=== PATIENT | male | born 1960 | race Caucasian/White ===

== ENCOUNTER 2020-05-23 07:43 | Outpatient (CLI) | payer OTHER, SELFPAY ==
[2020-05-23 08:04] LABS: Hemoglobin A1C 6.1 % (<5.7)
[2020-05-23 08:49] LABS: Alanine Aminotransferase 49 U/L (16-63); Albumin Level 4.1 g/dL (3.4-5.0); Alkaline Phosphatase 115 U/L (46-116); Anion Gap 11.1 mmol/L (7-16); Aspartate Amino Transferase 31 U/L (15-37); Bilirubin,Total 0.4 mg/dL (0.00-1.00); Blood Urea Nitrogen 13 mg/dL (7-18); Calcium 9.8 mg/dL (8.5-10.1); Carbon Dioxide 31 mmol/L (21-32); Chloride 105 mmol/L (98-108); Cholesterol 153 mg/dL (0-200); Estimated Glomerular Filt Rate 50; Glucose 117 mg/dL (70-99); HDL Direct 32 mg/dL (40-60); LDL Cholesterol Calculated 67 mg/dL (<130); Osmolality Calculated 295 mOsm/kg (285-295); Potassium 5.1 mmol/L (3.5-5.1); Sodium 142 mmol/L (136-145); Total Protein 7.1 g/dL (6.4-8.2); Triglycerides 270 mg/dL (0-150)
== END 2020-05-23 07:44 | disposition home or self-care (01) ==
PROVIDERS: PCP Internal Medicine; Visit Provider Internal Medicine
DX: R73.03 Prediabetes (principal); E78.5 Hyperlipidemia, unspecified
CPT/HCPCS: 36415; 80053; 80061; 83036

== ENCOUNTER 2020-07-30 13:14 | Outpatient (CLI) | payer OTHER, SELFPAY ==
--- NOTE | ~2020-07-30 | XR_ITS ---
EXAMINATION: XR lumbar spine 2-3V DATE: 07/30/2020 13:46 INDICATION: Lumbar radiculopathy TECHNIQUE: Anteroposterior and lateral views of the lumbar spine, and cone-down lateral view of the l umbosacral junction were obtained. COMPARISON: 11/22/2017 FINDINGS: There is no fracture, dislocation, or subluxation. The vertebral body heights are normal. T here is mild chronic loss of intervertebral disc space height at L5-S1. Small degenerative osteophyte s project from the anterior endplates of multiple vertebral bodies. There is moderate to severe facet osteoarthritis of the lower lumbar spine. Calcified atherosclerosis is noted. Punctate calcification s of the left upper quadrant are consistent with healed granulomatous disease of the spleen. Surgical clips in the right upper quadrant are likely from prior cholecystectomy. IMPRESSION: 1. Moderate lumbar spondylosis without acute findings or significant interval change. Reviewed, dictated and finalized at location A. IMPRESSION: 1. Moderate lumbar spondylosis without acute findings or significant interval darshana garsia
[2020-07-30 13:34] LABS: Basophils Absolute Auto 0.02 K/mm3 (0.00-0.10); Basophils Percent Auto 0.1 % (0.0-1.0); Eosinophils Absolute Auto 0.01 K/mm3 (0.02-0.50); Eosinophils Percent Auto 0.1 % (1.0-6.0); Hematocrit 45.7 % (40.0-54.0); Hemoglobin 14.9 g/dL (14.0-18.0); Immature Granulocyte Absolute 0.08 K/mm3 (0.00-0.00); Immature Granulocyte Percent A 0.4 % (0.0-0.0); Lymphocytes Absolute Auto 1.34 K/mm3 (1.10-4.50); Lymphocytes Percent Auto 6.7 % (18.0-42.0); Mean Corpuscular HGB Conc 32.6 g/dL (32.0-36.0); Mean Corpuscular Hemoglobin 29.3 pg (27.0-31.0); Mean Platelet Volume 8.9 fl (8.7-11.0); Monocytes Absolute Auto 0.62 K/mm3 (0.10-0.90); Monocytes Percent Auto 3.1 % (2.0-11.0); Neutrophils Absolute Auto 17.9 K/mm3 (1.7-7.2); Neutrophils Percent Auto 89.6 % (50.0-70.0); Platelet Count Result 316 K/mm3 (150-420); Red Blood Count 5.08 M/mm3 (4.70-6.10); Red Cell Distribution Width 14.5 % (11.6-14.4); White Blood Count 19.9 K/mm3 (4.8-10.8)
[2020-07-30 13:35] LABS: Add Urine Microscopic? NO; Appearance Urine Clear (Clear); Bilirubin Urine Negative (Negative); Blood Urine Negative (Negative); Color Urine Yellow (Yellow); Glucose Urine UA Negative (Negative); Ketones Urine Negative (Negative); Leukocyte Esterase Ur Negative LEU/UL (Negative); Nitrate Urine Negative (Negative); Protein Urine Negative (Negative); Specific Grav Ur >= 1.030 (1.010-1.020); Urobilinogen Urine 0.2 mg/dL (0.2-1.0)
[2020-07-30 13:52] LABS: Alanine Aminotransferase 31 U/L (16-63); Albumin Level 4.7 g/dL (3.4-5.0); Alkaline Phosphatase 112 U/L (46-116); Anion Gap 12 mmol/L (8-16); Aspartate Amino Transferase 16 U/L (15-37); Bilirubin,Total 0.5 mg/dL (0.00-1.00); Blood Urea Nitrogen 22 mg/dL (7-18); Calcium 9.1 mg/dL (8.5-10.1); Carbon Dioxide 22 mmol/L (21-32); Chloride 106 mmol/L (98-108); Estimated Glomerular Filt Rate 52; Glucose 123 mg/dL (70-99); Osmolality Calculated 294 mOsm/kg (285-295); Potassium 4.2 mmol/L (3.5-5.1); Sodium 140 mmol/L (136-145); Total Protein 7.8 g/dL (6.4-8.2)
[2020-07-30 14:01] LABS: CRP < 0.2 mg/dL (0.0-0.9)
[2020-07-31 13:52] LABS: SARS-CoV-2 RNA PCR Negative
== END 2020-07-30 13:15 | disposition home or self-care (01) ==
LOC: CHSLAB 13:15
PROVIDERS: PCP Internal Medicine; Visit Provider Internal Medicine
DX: R50.9 Fever, unspecified (principal); M54.16 Radiculopathy, lumbar region
CPT/HCPCS: 36415; 72100; 80053; 81003; 85025; 86140; 87040; 87635; C9803; U0003

== ENCOUNTER 2020-08-05 07:28 | Outpatient (RCR) | payer OTHER, SELFPAY ==
--- NOTE | 2020-08-04 16:39 | PTOPEVAL ---
Thank you for referring Aramis Agrawal to [facility].? The patient is scheduled to be seen for therapy? __2__x/week for 10 visits. Please review, sign, date and return this plan of care ERROL. I agree with and certify that the following plan of care is medically necessary. Referring Physician Date Admitting Provider: Attending Provider: Jovanny Daigle MD Referring Provider: *PT Outpatient Evaluation Start: 08/04/20 15:59 Freq: Status: Active Protocol: Document 08/04/20 16:00 MALCOLM (Rec: 08/04/20 16:36 MALCOLM [email or web address]) Therapy Assessment Status Assessment Status Assessment Status Evaluation Evaluation Information Problem Diagnosis low back pain Onset 07/09/20 Subjective Information Pt. reports that he developed Query Text:As Reported By Patient/ pain into the left leg about 3 Family -4 weeks ago. He states that he has recent hx of back pain. He underwent nerve procedure in December which did not help and he feels may have worsened his symptoms. He states that he feels the leg is giving out on him on occassion. He reports that he can stand all day, but pain will increase. 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 He states that his goal is to get rid of his pain in order to walk better. Diagnostic Tests X-Rays For This Problem Yes Pain Assessment Pain Scale Pain Scale Used Numeric (1 - 10) Self Report Pain Assessment Left Thigh(s) Reported Pain Level 6 Pain Description Aching,Dull Lowest Pain Intensity 6 Greatest Pain Intensity 10 Pain Score Pain Score 6: Self Report Interventions Used Interventions Used By Clinicians Electrical Stimulation, Exercise,Heat Cervical and Lumbar ROM Lumbar ROM Lumbar Flexion Active Floor Query Text:Hands to: Lumbar Extension (0-40) 0 Query Text:Active in Degrees Lumbar Lateral Flexion Right (0-40) 40 Query Text:Active in Degrees Lumbar Lateral Flexion Left (0-40) 10 Query Text:Active in Degrees Lower Extremity Muscle Strength Testing General Lower Extremity Strength Gross Lower Extremity Strength right hip flexion 02/18
== END 2020-08-21 14:44 | disposition home or self-care (01) ==
LOC: CHSPT 07:28
PROVIDERS: PCP Internal Medicine; Visit Provider Internal Medicine
DX: M54.9 Dorsalgia, unspecified (principal)
CPT/HCPCS: 97012; 97014; 97110; 97140; 97161; G0283

== ENCOUNTER 2020-08-08 14:46 | Outpatient (CLI) | payer OTHER, SELFPAY ==
--- NOTE | ~2020-08-08 | US_ITS ---
EXAMINATION:US venous doppler LE LT INDICATION:Left leg pain TECHNIQUE: Multiple grayscale, color flow and Doppler images of the left lower extremity deep venous systems were obtained and reviewed. COMPARISON:No prior studies for comparison. FINDINGS: The common femoral, superficial femoral and popliteal veins demonstrate normal respiratory variation, augmentation and compressibility. Color flow is also seen within the posterior tibial, pe roneal, greater saphenous and profunda veins. IMPRESSION: 1: No lower extremity deep venous thrombosis. Reviewed, dictated and finalized at location B.
== END 2020-08-08 14:47 | disposition home or self-care (01) ==
LOC: CHSLAB 14:48
PROVIDERS: PCP Internal Medicine; Visit Provider Internal Medicine
DX: M79.605 Pain in left leg (principal)
CPT/HCPCS: 93971

== ENCOUNTER 2020-08-18 08:33 | Outpatient (RCR) | payer OTHER, SELFPAY ==
[2020-06-05 10:00] LABS: INR 1.3; Prothrombin Time 13.4 Seconds (9.64-11.0)
[2020-06-09 07:53] LABS: INR 2.3
[2020-06-12 08:11] LABS: INR 2.6; Prothrombin Time 26.3 Seconds (9.64-11.0)
[2020-06-19 08:17] LABS: INR 2.6; Prothrombin Time 26.1 Seconds (9.64-11.0)
[2020-06-26 08:50] LABS: INR 3.5; Prothrombin Time 34.3 Seconds (9.64-11.0)
[2020-07-03 08:45] LABS: INR 2.1; Prothrombin Time 20.7 Seconds (9.64-11.0)
[2020-07-10 09:28] LABS: INR 2.3; Prothrombin Time 22.7 Seconds (9.64-11.0)
[2020-07-24 08:05] LABS: INR 3.5; Prothrombin Time 34.3 Seconds (9.64-11.0)
[2020-08-01 08:14] LABS: Prothrombin Time 48.8 Seconds (9.64-11.0)
[2020-08-05 07:58] LABS: INR 1.2; Prothrombin Time 12.7 Seconds (9.64-11.0)
[2020-08-12 07:48] LABS: INR 2.2; Prothrombin Time 22.5 Seconds (9.64-11.0)
[2020-08-18 08:54] LABS: INR 1.9; Prothrombin Time 19.4 Seconds (9.64-11.0)
== END 2020-09-03 23:59 | disposition home or self-care (01) ==
LOC: CHSLAB 08:33
PROVIDERS: PCP Internal Medicine
DX: Z95.2 Presence of prosthetic heart valve (principal)
CPT/HCPCS: 36415; 85610

== ENCOUNTER 2020-09-08 16:21 | Outpatient (CLI) | payer OTHER, SELFPAY ==
--- NOTE | ~2020-09-08 | XR_ITS ---
EXAMINATION: XR knee LT 3V DATE: 09/08/2020 17:23 INDICATION: Left knee pain TECHNIQUE: Anteroposterior, sunrise and and crosstable lateral views of the left knee were obtained COMPARISON: None. FINDINGS: Alignment is normal. No fracture. Joint spaces appear normal although joint space narrowing can be u nderestimated on nonweightbearing imaging. Moderate sized left knee joint effusion at the suprapatell ar pouch without layering lipohemarthrosis. Prominent enthesophyte at the patellar insertion of the d istal quadriceps tendon. Soft tissues are unremarkable. IMPRESSION: 1. Nonspecific moderate-sized left knee joint effusion. No acute osseous abnormality. Reviewed, dictated and finalized at location H. LIANCE SPEC IMPRESSION: 1. Nonspecific moderate-sized left knee joint effusion. No acute osseous abnorm ality.
== END 2020-09-08 16:22 | disposition home or self-care (01) ==
LOC: CHSLAB 16:22
PROVIDERS: PCP Internal Medicine; Visit Provider Internal Medicine
DX: M25.562 Pain in left knee (principal)
CPT/HCPCS: 73562

== ENCOUNTER 2020-09-17 08:11 | Outpatient (CLI) | payer OTHER, SELFPAY | END 2020-09-17 08:12 | disposition home or self-care (01) | LOC: CHSIMG 08:12 | PROVIDERS: PCP Internal Medicine; Visit Provider Internal Medicine | DX: Z53.8 Procedure and treatment not carried out for other reasons (principal) | CPT/HCPCS: 99199 ==

== ENCOUNTER 2020-09-24 07:04 | Outpatient (CLI) | payer OTHER, SELFPAY ==
--- NOTE | ~2020-09-24 | MR_ITS ---
EXAMINATION: MR lumbar spine wo con DATE: 09/24/2020 07:51 INDICATION: Lumbosacral radiculopathy. TECHNIQUE: Magnetic resonance imaging (MRI) of the lumbar spine was performed without intravenous con trast. Sequences included sagittal T2-weighted FSE, sagittal T2-weighted FS FSE, sagittal T1-weighted FSE, and axial T2-weighted FSE. COMPARISON: Lumbar spine MRI 06/02/2019 FINDINGS: Bone alignment is normal. There are Schmorl's nodes at all levels. There is mild chronic an terior wedging of L1 vertebral body. There is mildly decreased disc height at T12-L1. The distal spin al cord signal intensity is normal. The conus medullaris is at L1. The following disc levels are spec ifically discussed: T12-L1: There is a central extrusion. There is mild bilateral facet joint osteoarthritis. There is no neural foraminal stenosis. There is mild central canal stenosis. L1-L2: The disc is bulging and has an annular fissure. There is mild bilateral facet joint osteoarthr itis. There is moderate right and mild left neural foraminal stenosis. There is mild central canal st enosis. L2-L3: The disc is bulging and has an annular fissure. There is moderate bilateral facet joint osteoa rthritis. There is mild bilateral neural foraminal stenosis. There is mild central canal stenosis. L3-L4: The disc is bulging with superimposed left subarticular zone extrusion with 14 mm inferior ext ension to the infrapedicular level and mass effect on the left L4 nerve root. There is moderate bilat eral facet joint osteoarthritis. There is moderate bilateral neural foraminal stenosis. There is markos re central canal stenosis. L4-L5: The disc is bulging and has an annular fissure. There is moderate bilateral facet joint osteoa rthritis. There is moderate bilateral neural foraminal stenosis. There is mild central canal stenosis . L5-S1: The disc is bulging and has an annular fissure. There is moderate bilateral facet joint osteoa rthritis. There is moderate bilateral neural foraminal stenosis. There is mild central canal stenosis . IMPRESSION: 1. Lumbar spondylosis with worsened extrusion at L3-L4 with mass effect on left L4 nerve root and per sistent severe central canal stenosis at L3-L4. Reviewed, dictated and finalized at location B. ESS LABORATORY SPECIALIST IMPRESSION: 1. Lumbar spondylosis with worsened extrusion at L3-L4 with mass effect on left L4 nerve root and persistent severe central canal stenosis at L3-L4.
== END 2020-09-24 07:05 ==
LOC: CHSIMG 07:05
PROVIDERS: PCP Internal Medicine; Visit Provider Internal Medicine
DX: M54.16 Radiculopathy, lumbar region (principal); R29.2 Abnormal reflex
CPT/HCPCS: 72148

== ENCOUNTER 2020-11-20 07:01 | Outpatient (RCR) | payer OTHER, SELFPAY ==
[2020-09-04 08:19] LABS: INR 2.5; Prothrombin Time 25.2 Seconds (9.64-11.0)
[2020-09-29 08:22] LABS: INR 1.3; Prothrombin Time 14.4 Seconds (9.50-12.10)
[2020-10-06 08:10] LABS: INR 1.4; Prothrombin Time 15.1 Seconds (9.50-12.10)
[2020-10-15 08:48] LABS: INR 1.2; Prothrombin Time 13.1 Seconds (9.50-12.10)
[2020-10-23 09:13] LABS: INR 1.6; Prothrombin Time 17.2 Seconds (9.50-12.10)
[2020-11-05 07:53] LABS: INR 1.3; Prothrombin Time 13.7 Seconds (9.50-12.10)
[2020-11-20 07:24] LABS: Prothrombin Time 20.2 Seconds (9.50-12.10)
== END 2020-12-03 23:59 | disposition home or self-care (01) ==
LOC: CHSLAB 07:01
PROVIDERS: PCP Internal Medicine
DX: Z95.2 Presence of prosthetic heart valve (principal)
CPT/HCPCS: 36415; 85610

== ENCOUNTER 2021-02-20 07:21 | Outpatient (RCR) | payer OTHER, SELFPAY ==
[2020-12-05 07:27] LABS: INR 2.1; Prothrombin Time 21.5 Seconds (9.50-12.10)
[2020-12-22 07:37] LABS: INR 2.5; Prothrombin Time 25.1 Seconds (9.50-12.10)
[2021-01-08 07:58] LABS: INR 2.5; Prothrombin Time 25.8 Seconds (9.50-12.10)
[2021-01-23 07:34] LABS: INR 2.1; Prothrombin Time 21.7 Seconds (9.50-12.10)
== END 2021-03-05 23:59 | disposition home or self-care (01) ==
LOC: CHSLAB 07:21
PROVIDERS: PCP Internal Medicine
DX: Z95.2 Presence of prosthetic heart valve (principal)
CPT/HCPCS: 36415; 85610

== ENCOUNTER 2021-06-09 07:17 | Outpatient (RCR) | payer OTHER, SELFPAY ==
[2021-05-06 07:39] LABS: INR 2.8; Prothrombin Time 28.3 Seconds (9.50-12.10)
[2021-06-09 07:42] LABS: INR 1.8; Prothrombin Time 18.6 Seconds (9.50-12.10)
== END 2021-06-24 23:59 | disposition home or self-care (01) ==
LOC: CHSLAB 07:17
PROVIDERS: PCP Internal Medicine
DX: Z95.2 Presence of prosthetic heart valve (principal); Z79.01 Long term (current) use of anticoagulants
CPT/HCPCS: 36415; 85610

== ENCOUNTER 2021-10-06 08:12 | Outpatient (RCR) | payer OTHER, SELFPAY ==
[2021-07-16 07:57] LABS: INR 2.4; Prothrombin Time 24.2 Seconds (9.50-12.10)
[2021-08-21 07:43] LABS: INR 1.9; Prothrombin Time 19.3 Seconds (9.50-12.10)
[2021-10-06 08:39] LABS: INR 2.3; Prothrombin Time 23.9 Seconds (9.50-12.10)
== END 2021-10-14 23:59 | disposition home or self-care (01) ==
LOC: CHSLAB 08:12
PROVIDERS: PCP Internal Medicine
DX: Z79.01 Long term (current) use of anticoagulants (principal)
CPT/HCPCS: 36415; 85610

== ENCOUNTER 2021-12-17 07:29 | Outpatient (CLI) | payer OTHER, BC, SELFPAY ==
[2021-12-17 08:39] LABS: Basophils Absolute Auto 0.13 K/mm3 (0.00-0.10); Basophils Percent Auto 1.7 % (0.0-1.0); Eosinophils Percent Auto 2.7 % (1.0-6.0); Hemoglobin 17.1 g/dL (14.0-18.0); Immature Granulocyte Absolute 0.06 K/mm3 (0.00-0.00); Immature Granulocyte Percent A 0.8 % (0.0-0.0); Lymphocytes Percent Auto 21.3 % (18.0-42.0); Mean Corpuscular HGB Conc 34.2 g/dL (32.0-36.0); Mean Corpuscular Hemoglobin 30.6 pg (27.0-31.0); Mean Corpuscular Volume 89.6 fL (78.0-102.0); Mean Platelet Volume 9.7 fl (8.7-11.0); Monocytes Absolute Auto 0.57 K/mm3 (0.10-0.90); Monocytes Percent Auto 7.6 % (2.0-11.0); Neutrophils Percent Auto 65.9 % (50.0-70.0); Platelet Count Result 214 K/mm3 (150-420); Red Blood Count 5.58 M/mm3 (4.70-6.10); Red Cell Distribution Width 13.1 % (11.6-14.4); White Blood Count 7.5 K/mm3 (4.8-10.8)
[2021-12-17 08:52] LABS: INR 1.6; Prothrombin Time 16.2 Seconds (9.50-12.10)
[2021-12-17 11:12] LABS: Alanine Aminotransferase 52 U/L (16-63); Albumin Level 4.3 g/dL (3.4-5.0); Alkaline Phosphatase 92 U/L (46-116); Anion Gap 10 mmol/L (8-16); Aspartate Amino Transferase 26 U/L (15-37); Bilirubin,Total 0.8 mg/dL (0.00-1.00); Blood Urea Nitrogen 20 mg/dL (7-18); Calcium 9.3 mg/dL (8.5-10.1); Carbon Dioxide 27 mmol/L (21-32); Chloride 106 mmol/L (98-108); Cholesterol 158 mg/dL (0-200); Estimated Glomerular Filt Rate 56; Glucose 132 mg/dL (70-99); HDL Direct 29 mg/dL (40-60); LDL Cholesterol Calculated 69 mg/dL (<130); Osmolality Calculated 300 mOsm/kg (285-295); Potassium 4.5 mmol/L (3.5-5.1); Sodium 143 mmol/L (136-145); Total Protein 6.8 g/dL (6.4-8.2); Triglycerides 302 mg/dL (0-150)
== END 2021-12-17 07:30 | disposition home or self-care (01) ==
LOC: CHSLAB 07:33
PROVIDERS: PCP Internal Medicine
DX: I25.10 Atherosclerotic heart disease of native coronary artery without angina pectoris (principal); Z95.1 Presence of aortocoronary bypass graft; I10 Essential (primary) hypertension; Z95.2 Presence of prosthetic heart valve; Z79.01 Long term (current) use of anticoagulants
CPT/HCPCS: 36415; 80053; 80061; 85025; 85610

== ENCOUNTER 2022-01-28 07:37 | Outpatient (RCR) | payer BC, OTHER, SELFPAY ==
[2021-11-13 07:50] LABS: INR 1.7; Prothrombin Time 17.2 Seconds (9.50-12.10)
[2022-01-28 08:03] LABS: INR 1.8; Prothrombin Time 18.9 Seconds (9.50-12.10)
== END 2022-02-11 23:59 | disposition home or self-care (01) ==
LOC: CHSLAB 07:37
PROVIDERS: PCP Internal Medicine
DX: Z79.01 Long term (current) use of anticoagulants (principal)
CPT/HCPCS: 36415; 85610

== ENCOUNTER 2022-04-13 07:36 | Outpatient (CLI) | payer BC, SELFPAY ==
--- NOTE | ~2022-04-13 | MR_ITS ---
EXAMINATION: MR lumbar spine wo con DATE: 04/13/2022 08:22 INDICATION: Low back pain radiating down into B/L legs x3 mo . TECHNIQUE: Magnetic resonance imaging (MRI) of the lumbar spine was performed without intravenous con trast. Sequences included sagittal T2-weighted FSE, sagittal T2-weighted FS FSE, sagittal T1-weighted FSE, and axial T2-weighted FSE. COMPARISON: None FINDINGS: The last fully formed and hydrated disc is designated L5-S1. The marrow signal is benign an d homogenous. Conus terminates at L1. Multilevel disc dehydration. The following disc levels are spec ifically discussed: T12-L1: Mild diffuse bulge with a central 2 mm protrusion. There is mild facet joint osteoarthritis. There is no neural foraminal stenosis. There is mild central canal stenosis. L1-L2: Moderate diffuse bulge. Tiny rent in the posterior disc. There is severe facet joint osteoarth ritis. There is moderate right and mild left neural foraminal stenosis. There is moderate central can al stenosis. L2-L3: Severe diffuse bulge. Tiny focal rent in the posterior disc. There is severe facet joint osteo arthritis. There is moderate right and mild left neural foraminal stenosis. There is moderate central canal stenosis. L3-L4: Severe diffuse bulge. 3 mm central protrusion extending along the posterior aspect of the L4 v ertebral body. There is moderate facet joint osteoarthritis. There is moderate bilateral neural madhavi inal stenosis. There is severe central canal stenosis. L4-L5: Severe diffuse bulge. There is severe facet joint osteoarthritis. There is moderate bilateral neural foraminal stenosis. There is severe central canal stenosis. L5-S1: Moderate diffuse bulge. There is moderate bilateral facet joint osteoarthritis. There is sever e bilateral neural foraminal stenosis. There is no central canal stenosis. IMPRESSION: 1. Severe central canal narrowing at L3-4 and L4-5. 2. Severe bilateral neural foraminal stenosis at L5-S1. Additional levels of moderate neural foramina l narrowing at multiple levels, described above. 3. Multilevel severe degenerative disc disease and facet arthropathy. Reviewed, dictated and finalized at location K. IMPRESSION: 1. Severe central canal narrowing at L3-4 and L4-5. 2. Severe bilateral neural foraminal stenosis at L5-S1. Additional levels of mo derate neural foraminal narrowing at multiple levels, described above. 3. Multilevel severe degenerative disc disease and facet arthropathy.
== END 2022-04-13 07:37 | disposition home or self-care (01) ==
LOC: CHSIMG 07:37
PROVIDERS: PCP Internal Medicine; Visit Provider Neurological Surgery
DX: M54.16 Radiculopathy, lumbar region (principal)
CPT/HCPCS: 72148

== ENCOUNTER 2022-05-11 07:03 | Outpatient (CLI) | payer BC, SELFPAY ==
[2022-05-11 07:24] LABS: Basophils Absolute Auto 0.09 K/mm3 (0.00-0.10); Basophils Percent Auto 1.4 % (0.0-1.0); Eosinophils Absolute Auto 0.25 K/mm3 (0.02-0.50); Eosinophils Percent Auto 3.9 % (1.0-6.0); Hematocrit 46.7 % (40.0-54.0); Immature Granulocyte Absolute 0.03 K/mm3 (0.00-0.00); Immature Granulocyte Percent A 0.5 % (0.0-0.0); Lymphocytes Absolute Auto 1.27 K/mm3 (1.10-4.50); Lymphocytes Percent Auto 19.8 % (18.0-42.0); Mean Corpuscular HGB Conc 34.3 g/dL (32.0-36.0); Mean Corpuscular Hemoglobin 31.1 pg (27.0-31.0); Mean Corpuscular Volume 90.9 fL (78.0-102.0); Monocytes Absolute Auto 0.45 K/mm3 (0.10-0.90); Neutrophils Absolute Auto 4.3 K/mm3 (1.7-7.2); Neutrophils Percent Auto 67.4 % (50.0-70.0); Platelet Count Result 204 K/mm3 (150-420); Red Blood Count 5.14 M/mm3 (4.70-6.10); White Blood Count 6.4 K/mm3 (4.8-10.8)
--- NOTE | 2022-05-11 07:30 | ECG_ITS ---
Rate 54 AL 201 QRSd 93 QT 409 QTc 389 --[place]-- P 62 QRS -2 T 54 SINUS BRADYCARDIA BORDERLINE AV CONDUCTION DELAY BASELINE ARTIFACT- I, III, AVL, AVF BORDERLINE ECG Electronically Signed On 05-11-2022 8:28:21 CDT by Donovan OSEI
[2022-05-11 07:53] LABS: Alanine Aminotransferase 41 U/L (16-63); Albumin Level 4.2 g/dL (3.4-5.0); Alkaline Phosphatase 107 U/L (46-116); Anion Gap 7 mmol/L (8-16); Aspartate Amino Transferase 29 U/L (15-37); Bilirubin,Total 0.5 mg/dL (0.00-1.00); Blood Urea Nitrogen 16 mg/dL (7-18); Calcium 8.9 mg/dL (8.5-10.1); Carbon Dioxide 27 mmol/L (21-32); Chloride 104 mmol/L (98-108); Estimated Glomerular Filt Rate 57; Glucose 112 mg/dL (70-99); Osmolality Calculated 288 mOsm/kg (285-295); Potassium 4.2 mmol/L (3.5-5.1); Sodium 138 mmol/L (136-145); Total Protein 6.7 g/dL (6.4-8.2)
== END 2022-05-11 07:04 | disposition home or self-care (01) ==
PROVIDERS: PCP Internal Medicine; Visit Provider Internal Medicine
DX: Z01.818 Encounter for other preprocedural examination (principal); I10 Essential (primary) hypertension
CPT/HCPCS: 36415; 80053; 85025; 93005

== ENCOUNTER 2022-05-18 08:33 | Outpatient (RCR) | payer BC, SELFPAY ==
[2022-03-02 08:05] LABS: Prothrombin Time 58.8 Seconds (9.50-12.10)
[2022-03-04 07:56] LABS: INR 4.5; Prothrombin Time 45.1 Seconds (9.50-12.10)
[2022-03-09 07:26] LABS: INR 1.3; Prothrombin Time 13.5 Seconds (9.50-12.10)
[2022-03-12 07:28] LABS: INR 2.3; Prothrombin Time 23.8 Seconds (9.50-12.10)
[2022-03-19 07:53] LABS: INR 3.9; Prothrombin Time 38.6 Seconds (9.50-12.10)
[2022-04-05 08:01] LABS: INR 3.5; Prothrombin Time 34.3 Seconds (9.50-12.10)
[2022-04-30 07:24] LABS: INR 2.7; Prothrombin Time 27.3 Seconds (9.50-12.10)
== END 2022-05-31 23:59 | disposition home or self-care (01) ==
LOC: CHSLAB 08:33
PROVIDERS: PCP Internal Medicine
DX: Z79.01 Long term (current) use of anticoagulants (principal)
CPT/HCPCS: 36415; 85610

== ENCOUNTER 2022-08-05 07:12 | Outpatient (RCR) | payer BC, SELFPAY ==
[2022-06-02 07:24] LABS: INR 1.5; Prothrombin Time 15.9 Seconds (9.50-12.10)
[2022-06-29 07:58] LABS: INR 2.2; Prothrombin Time 22.8 Seconds (9.50-12.10)
[2022-08-05 07:38] LABS: INR 2.2
== END 2022-08-31 23:59 | disposition home or self-care (01) ==
LOC: CHSLAB 07:12
PROVIDERS: PCP Internal Medicine
DX: Z79.01 Long term (current) use of anticoagulants (principal)
CPT/HCPCS: 36415; 85610

== ENCOUNTER 2022-11-02 07:10 | Outpatient (RCR) | payer BC, SELFPAY ==
[2022-09-14 07:35] LABS: INR 1.6; Prothrombin Time 16.7 Seconds (9.50-12.10)
[2022-09-30 07:22] LABS: INR 1.6; Prothrombin Time 16.9 Seconds (9.50-12.10)
[2022-11-02 07:50] LABS: INR 2.2; Prothrombin Time 22.9 Seconds (9.50-12.10)
== END 2022-12-13 23:59 | disposition home or self-care (01) ==
LOC: CHSLAB 07:10
PROVIDERS: PCP Internal Medicine
DX: Z51.81 Encounter for therapeutic drug level monitoring (principal); Z79.01 Long term (current) use of anticoagulants
CPT/HCPCS: 36415; 85610

== ENCOUNTER 2022-11-17 16:35 | Outpatient (CLI) | payer BC, SELFPAY ==
--- NOTE | ~2022-11-17 | XR_ITS ---
EXAMINATION:XR_CERV2-3V_CR DATE: 11/17/2022 17:08 INDICATION: Neck pain TECHNIQUE: AP, lateral, and odontoid views of the cervical spine are provided. COMPARISON: None FINDINGS: Alignment is normal. The odontoid process is intact. No fracture is identified. The vertebr al body heights are normal. There is mild loss of intervertebral disc space height at C3-4, C4-5, and C5-6. There is multilevel mild facet and uncovertebral joint osteoarthritis. Prevertebral soft tissu es are normal. IMPRESSION: 1. Mild cervical spondylosis without acute findings. Reviewed, dictated and finalized at location L. ALL CARRIER
== END 2022-11-17 16:36 | disposition home or self-care (01) ==
LOC: CHSIMG 16:37
PROVIDERS: PCP Internal Medicine; Visit Provider Internal Medicine
DX: M54.2 Cervicalgia (principal); M43.02 Spondylolysis, cervical region
CPT/HCPCS: 72040

== ENCOUNTER 2022-12-02 07:02 | Outpatient (CLI) | payer BC, SELFPAY ==
[2022-12-02 07:52] LABS: Basophils Absolute Auto 0.13 K/mm3 (0.00-0.10); Basophils Percent Auto 1.3 % (0.0-1.0); Hematocrit 50.9 % (40.0-54.0); Hemoglobin 16.7 g/dL (14.0-18.0); Immature Granulocyte Absolute 0.08 K/mm3 (0.00-0.00); Immature Granulocyte Percent A 0.8 % (0.0-0.0); Lymphocytes Absolute Auto 1.31 K/mm3 (1.10-4.50); Lymphocytes Percent Auto 13.1 % (18.0-42.0); Mean Corpuscular HGB Conc 32.8 g/dL (32.0-36.0); Mean Corpuscular Hemoglobin 28.9 pg (27.0-31.0); Mean Corpuscular Volume 88.2 fL (78.0-102.0); Mean Platelet Volume 8.9 fl (8.7-11.0); Monocytes Absolute Auto 0.67 K/mm3 (0.10-0.90); Monocytes Percent Auto 6.7 % (2.0-11.0); Neutrophils Absolute Auto 7.6 K/mm3 (1.7-7.2); Neutrophils Percent Auto 76.1 % (50.0-70.0); Platelet Count Result 232 K/mm3 (150-420); Red Blood Count 5.77 M/mm3 (4.70-6.10); Red Cell Distribution Width 13.6 % (11.6-14.4)
[2022-12-02 08:04] LABS: INR 2.6; Prothrombin Time 26.5 Seconds (9.50-12.10)
[2022-12-02 08:05] LABS: Add Urine Microscopic? NO; Appearance Urine Clear (Clear); Bilirubin Urine Negative (Negative); Blood Urine Negative (Negative); Color Urine Yellow (Yellow); Glucose Urine UA Negative (Negative); Ketones Urine Negative (Negative); Leukocyte Esterase Ur Negative (Negative); Nitrate Urine Negative (Negative); Protein Urine Negative (Negative); Specific Grav Ur >= 1.030 (1.010-1.020); pH Urine 5.5 (5.0-8.0)
[2022-12-02 08:28] LABS: Alanine Aminotransferase 73 U/L (16-63); Albumin Level 3.7 g/dL (3.4-5.0); Alkaline Phosphatase 139 U/L (46-116); Anion Gap 7 mmol/L (8-16); Aspartate Amino Transferase 48 U/L (15-37); Bilirubin,Total 0.4 mg/dL (0.00-1.00); Blood Urea Nitrogen 16 mg/dL (7-18); Calcium 8.6 mg/dL (8.5-10.1); Carbon Dioxide 26 mmol/L (21-32); Chloride 103 mmol/L (98-108); Cholesterol 257 mg/dL (0-200); Estimated Glomerular Filt Rate 55; Glucose 145 mg/dL (70-99); HDL Direct 29 mg/dL (40-60); LDL Cholesterol Calculated 164 mg/dL (<130); Osmolality Calculated 286 mOsm/kg (285-295); Potassium 4.2 mmol/L (3.5-5.1); Prostate Specific Antigen 0.9 ng/mL (< OR = 4.0); Sodium 136 mmol/L (136-145); Thyroid Stimulating Hormone 1.81 uIU/mL (0.36-3.74); Total Protein 6.5 g/dL (6.4-8.2); Triglycerides 320 mg/dL (0-150)
[2022-12-07 03:03] LABS: Hepatitis A Antibody IgM Nonreactive; Hepatitis B Core Antibody Nonreactive (Nonreactive); Hepatitis B Surface Antigen Nonreactive (Nonreactive); Hepatitis C Signal to Cutoff 0.01 ratio (<1.00); Hepatitis C Virus Antibody Nonreactive (Nonreactive)
== END 2022-12-02 07:03 | disposition home or self-care (01) ==
LOC: CHSLAB 07:05
PROVIDERS: PCP Internal Medicine
DX: I10 Essential (primary) hypertension (principal); E78.5 Hyperlipidemia, unspecified; Z79.01 Long term (current) use of anticoagulants
CPT/HCPCS: 36415; 80053; 80061; 80074; 81003; 84153; 84443; 85025; 85610; G0103

== ENCOUNTER 2023-02-25 06:58 | Outpatient (CLI) | payer BC, SELFPAY ==
[2023-02-25 07:31] LABS: INR 1.4; Prothrombin Time 14.7 Seconds (9.50-12.10)
== END 2023-02-25 06:59 | disposition home or self-care (01) ==
LOC: CHSLAB 07:03
PROVIDERS: PCP Internal Medicine; Visit Provider Specialist
DX: I25.10 Atherosclerotic heart disease of native coronary artery without angina pectoris (principal); Z95.2 Presence of prosthetic heart valve; R94.39 Abnormal result of other cardiovascular function study; R06.09 Other forms of dyspnea; Z95.1 Presence of aortocoronary bypass graft; I97.89 Other postprocedural complications and disorders of the circulatory system, not elsewhere classified; I48.91 Unspecified atrial fibrillation; N52.9 Male erectile dysfunction, unspecified; I10 Essential (primary) hypertension; E78.5 Hyperlipidemia, unspecified
CPT/HCPCS: 36415; 85610

== ENCOUNTER 2023-03-10 09:10 | Outpatient (CLI) | payer BC, SELFPAY ==
[2023-03-10 09:26] LABS: Basophils Absolute Auto 0.11 K/mm3 (0.00-0.10); Eosinophils Absolute Auto 0.23 K/mm3 (0.02-0.50); Eosinophils Percent Auto 2.1 % (1.0-6.0); Hematocrit 47.5 % (40.0-54.0); Hemoglobin 16.2 g/dL (14.0-18.0); Immature Granulocyte Absolute 0.04 K/mm3 (0.00-0.00); Immature Granulocyte Percent A 0.4 % (0.0-0.0); Lymphocytes Absolute Auto 1.41 K/mm3 (1.10-4.50); Lymphocytes Percent Auto 12.6 % (18.0-42.0); Mean Corpuscular HGB Conc 34.1 g/dL (32.0-36.0); Mean Corpuscular Hemoglobin 30.5 pg (27.0-31.0); Mean Corpuscular Volume 89.3 fL (78.0-102.0); Mean Platelet Volume 9.2 fl (8.7-11.0); Monocytes Absolute Auto 0.72 K/mm3 (0.10-0.90); Monocytes Percent Auto 6.5 % (2.0-11.0); Neutrophils Absolute Auto 8.7 K/mm3 (1.7-7.2); Neutrophils Percent Auto 77.4 % (50.0-70.0); Platelet Count Result 225 K/mm3 (150-420); Red Blood Count 5.32 M/mm3 (4.70-6.10); Red Cell Distribution Width 13.1 % (11.6-14.4); White Blood Count 11.2 K/mm3 (4.8-10.8)
[2023-03-10 09:44] LABS: INR 2.1; Prothrombin Time 22.2 Seconds (9.50-12.10)
[2023-03-10 10:16] LABS: Alanine Aminotransferase 43 U/L (16-63); Albumin Level 4.3 g/dL (3.4-5.0); Alkaline Phosphatase 118 U/L (46-116); Anion Gap 8 mmol/L (8-16); Aspartate Amino Transferase 29 U/L (15-37); Bilirubin,Total 0.6 mg/dL (0.00-1.00); Blood Urea Nitrogen 15 mg/dL (7-18); Calcium 9.1 mg/dL (8.5-10.1); Carbon Dioxide 28 mmol/L (21-32); Chloride 106 mmol/L (98-108); Estimated Glomerular Filt Rate 60; Glucose 128 mg/dL (70-99); Osmolality Calculated 296 mOsm/kg (285-295); Potassium 4.3 mmol/L (3.5-5.1); Sodium 142 mmol/L (136-145); Total Protein 7.3 g/dL (6.4-8.2); Uric Acid 4.9 mg/dL (3.5-7.2)
== END 2023-03-10 09:11 | disposition home or self-care (01) ==
LOC: CHSLAB 09:12
PROVIDERS: PCP Internal Medicine; Visit Provider Internal Medicine
DX: M10.9 Gout, unspecified (principal); R23.3 Spontaneous ecchymoses
CPT/HCPCS: 36415; 80053; 84550; 85025; 85610; 85730

== ENCOUNTER 2023-03-30 16:28 | Outpatient (RCR) | payer BC, SELFPAY ==
[2022-12-30 07:33] LABS: INR 2.1; Prothrombin Time 21.9 Seconds (9.50-12.10)
[2023-01-31 07:16] LABS: INR 2.8; Prothrombin Time 28.7 Seconds (9.50-12.10)
[2023-03-31 16:02] LABS: Prothrombin Time 11.3 Seconds (9.64-11.0)
== END 2023-03-30 23:59 | disposition home or self-care (01) ==
LOC: CHSLAB 16:28
PROVIDERS: PCP Internal Medicine
DX: Z51.81 Encounter for therapeutic drug level monitoring (principal); Z79.01 Long term (current) use of anticoagulants
CPT/HCPCS: 36415; 85610

== ENCOUNTER 2023-05-17 06:54 | Outpatient (RCR) | payer BC, SELFPAY ==
[2023-04-05 07:39] LABS: INR 1.3; Prothrombin Time 13.8 Seconds (9.50-12.10)
[2023-04-14 07:34] LABS: INR 2.9; Prothrombin Time 29.2 Seconds (9.50-12.10)
[2023-04-28 07:49] LABS: INR 3.1; Prothrombin Time 30.9 Seconds (9.50-12.10)
[2023-05-17 07:22] LABS: INR 2.7; Prothrombin Time 27.2 Seconds (9.50-12.10)
== END 2023-07-04 23:59 | disposition home or self-care (01) ==
LOC: CHSLAB 06:54
PROVIDERS: PCP Internal Medicine
DX: Z51.81 Encounter for therapeutic drug level monitoring (principal); Z79.01 Long term (current) use of anticoagulants
CPT/HCPCS: 36415; 85610

== ENCOUNTER 2023-05-31 06:55 | Outpatient (CLI) | payer BC, SELFPAY ==
[2023-05-31 07:16] LABS: Hemoglobin A1C 5.7 % (<5.7)
[2023-05-31 07:55] LABS: Alanine Aminotransferase 53 U/L (16-63); Alkaline Phosphatase 135 U/L (46-116); Anion Gap 9 mmol/L (8-16); Aspartate Amino Transferase 39 U/L (15-37); Bilirubin,Total 0.5 mg/dL (0.00-1.00); Blood Urea Nitrogen 16 mg/dL (7-18); Calcium 8.6 mg/dL (8.5-10.1); Carbon Dioxide 27 mmol/L (21-32); Chloride 106 mmol/L (98-108); Cholesterol 136 mg/dL (0-200); Estimated Glomerular Filt Rate 54; Glucose 158 mg/dL (70-99); HDL Direct 27 mg/dL (40-60); LDL Cholesterol Calculated 27 mg/dL (<130); Osmolality Calculated 298 mOsm/kg (285-295); Potassium 4.1 mmol/L (3.5-5.1); Sodium 142 mmol/L (136-145); Total Protein 6.4 g/dL (6.4-8.2); Triglycerides 412 mg/dL (0-150)
[2023-05-31 09:02] LABS: LDL Cholesterol Direct 61 mg/dL (0-130)
== END 2023-05-31 06:56 | disposition home or self-care (01) ==
LOC: CHSLAB 06:57
PROVIDERS: PCP Internal Medicine; Visit Provider Internal Medicine
DX: I10 Essential (primary) hypertension (principal); E78.5 Hyperlipidemia, unspecified; R73.03 Prediabetes
CPT/HCPCS: 36415; 80053; 80061; 83036; 83721

== ENCOUNTER 2023-08-09 07:01 | Outpatient (RCR) | payer BC, SELFPAY ==
[2023-07-05 07:26] LABS: INR 2.5; Prothrombin Time 26.1 Seconds (9.50-12.10)
[2023-08-09 07:38] LABS: INR 3.3; Prothrombin Time 33.1 Seconds (9.50-12.10)
== END 2023-10-03 23:59 | disposition home or self-care (01) ==
LOC: CHSLAB 07:01
PROVIDERS: PCP Internal Medicine; Visit Provider Internal Medicine
DX: Z51.81 Encounter for therapeutic drug level monitoring (principal); Z79.01 Long term (current) use of anticoagulants
CPT/HCPCS: 36415; 85610

== ENCOUNTER 2023-09-06 07:00 | Outpatient (CLI) | payer BC, SELFPAY ==
[2023-09-06 07:28] LABS: Basophils Absolute Auto 0.08 K/mm3 (0.00-0.10); Basophils Percent Auto 0.9 % (0.0-1.0); Eosinophils Absolute Auto 0.18 K/mm3 (0.02-0.50); Hematocrit 45.3 % (37.0-46.0); Hemoglobin 15.4 g/dL (12.4-15.3); Immature Granulocyte Absolute 0.03 K/mm3 (0.00-0.00); Immature Granulocyte Percent A 0.3 % (0.0-0.0); Lymphocytes Absolute Auto 1.32 K/mm3 (1.10-4.50); Mean Corpuscular Hemoglobin 30.6 pg (27.0-31.0); Mean Corpuscular Volume 89.9 fL (78.0-102.0); Monocytes Absolute Auto 0.52 K/mm3 (0.10-0.90); Monocytes Percent Auto 5.9 % (2.0-11.0); Neutrophils Absolute Auto 6.7 K/mm3 (1.7-7.2); Neutrophils Percent Auto 75.9 % (50.0-70.0); Platelet Count Result 241 K/mm3 (150-420); Red Blood Count 5.04 M/mm3 (4.70-6.10); Red Cell Distribution Width 13.2 % (11.6-14.4); White Blood Count 8.8 K/mm3 (4.8-10.8)
[2023-09-06 07:51] LABS: INR 3.3; Prothrombin Time 33.5 Seconds (9.50-12.10)
[2023-09-06 08:00] LABS: Alanine Aminotransferase 51 U/L (16-63); Albumin Level 3.7 g/dL (3.4-5.0); Alkaline Phosphatase 137 U/L (46-116); Anion Gap 9 mmol/L (8-16); Aspartate Amino Transferase 27 U/L (15-37); Bilirubin,Total 0.5 mg/dL (0.00-1.00); Blood Urea Nitrogen 13 mg/dL (7-18); Calcium 8.6 mg/dL (8.5-10.1); Carbon Dioxide 27 mmol/L (21-32); Chloride 104 mmol/L (98-108); Cholesterol 127 mg/dL (0-200); Estimated Glomerular Filt Rate 54; Glucose 138 mg/dL (70-99); HDL Direct 29 mg/dL (40-60); LDL Cholesterol Calculated 32 mg/dL (<130); Magnesium 2.2 mg/dL (1.8-2.4); Osmolality Calculated 292 mOsm/kg (285-295); Sodium 140 mmol/L (136-145); Total Protein 6.4 g/dL (6.4-8.2); Triglycerides 332 mg/dL (0-150)
== END 2023-09-06 07:01 | disposition home or self-care (01) ==
LOC: CHSLAB 07:02
PROVIDERS: PCP Internal Medicine; Visit Provider Internal Medicine
DX: N18.2 Chronic kidney disease, stage 2 (mild) (principal); I12.9 Hypertensive chronic kidney disease with stage 1 through stage 4 chronic kidney disease, or unspecified chronic kidney disease; R94.5 Abnormal results of liver function studies
CPT/HCPCS: 36415; 80053; 80061; 83735; 85025; 85610

== ENCOUNTER 2023-12-19 07:05 | Outpatient (RCR) | payer BC, MEDICARE, OTHER, SELFPAY ==
[2023-10-05 07:23] LABS: INR 2.9; Prothrombin Time 29.7 Seconds (9.50-12.10)
[2023-11-03 08:04] LABS: INR 2.3; Prothrombin Time 23.6 Seconds (9.50-12.10)
[2023-12-19 07:36] LABS: INR 3.4; Prothrombin Time 33.8 Seconds (9.50-12.10)
== END 2024-01-03 23:59 | disposition home or self-care (01) ==
LOC: CHSLAB 07:05
PROVIDERS: PCP Internal Medicine; Visit Provider Internal Medicine
DX: Z51.81 Encounter for therapeutic drug level monitoring (principal); Z79.01 Long term (current) use of anticoagulants
CPT/HCPCS: 36415; 85610

== ENCOUNTER 2024-03-15 07:00 | Outpatient (RCR) | payer MEDICARE, SELFPAY ==
[2024-01-04 07:40] LABS: INR 2.7; Prothrombin Time 27.5 Seconds (9.50-12.1)
[2024-02-06 07:49] LABS: INR 3.1
[2024-03-15 07:29] LABS: INR 3.5; Prothrombin Time 35.2 Seconds (9.50-12.1)
== END 2024-04-03 23:59 | disposition home or self-care (01) ==
LOC: CHSLAB 07:00
PROVIDERS: PCP Internal Medicine; Visit Provider Internal Medicine
DX: Z51.81 Encounter for therapeutic drug level monitoring (principal); Z79.01 Long term (current) use of anticoagulants
CPT/HCPCS: 36415; 85610

== ENCOUNTER 2024-04-11 07:06 | Outpatient (CLI) | payer MEDICARE, SELFPAY ==
[2024-04-11 07:20] LABS: Basophils Percent Auto 1.4 % (0.0-1.0); Eosinophils Absolute Auto 0.23 K/mm3 (0.02-0.50); Eosinophils Percent Auto 3.2 % (1.0-6.0); Hematocrit 45.4 % (37.0-46.0); Hemoglobin 15.7 g/dL (12.4-15.3); Immature Granulocyte Absolute 0.03 K/mm3 (0.00-0.00); Immature Granulocyte Percent A 0.4 % (0.0-0.0); Lymphocytes Absolute Auto 1.34 K/mm3 (1.10-4.50); Lymphocytes Percent Auto 18.7 % (18.0-42.0); Mean Corpuscular HGB Conc 34.6 g/dL (32-36); Mean Corpuscular Hemoglobin 30.7 pg (27.0-31.0); Mean Corpuscular Volume 88.8 fL (78.0-102.0); Mean Platelet Volume 8.9 fl (8.7-11.0); Monocytes Absolute Auto 0.44 K/mm3 (0.10-0.90); Monocytes Percent Auto 6.2 % (2.0-11.0); Neutrophils Absolute Auto 5.01 K/mm3 (1.70-7.20); Neutrophils Percent Auto 70.1 % (50.0-70.0); Platelet Count Result 212 K/mm3 (150-420); Red Blood Count 5.11 M/mm3 (4.70-6.10); Red Cell Distribution Width 13.2 % (11.6-14.4); White Blood Count 7.2 K/mm3 (4.8-10.8)
[2024-04-11 07:23] LABS: Appearance Urine Clear (Clear); Bilirubin Urine 1+ (Negative); Blood Urine Negative (Negative); Color Urine Dark Yellow (Yellow); Glucose Urine UA Negative (Negative); Ketones Urine Negative (Negative); Leukocyte Esterase Ur Negative (Negative); Nitrate Urine Negative (Negative); Protein Urine Negative (Negative); Specific Grav Ur >= 1.030 (1.010-1.020)
[2024-04-11 07:29] LABS: Add Urine Microscopic? YES; RBC Urine None seen /hpf (0-2); WBC Urine None seen /hpf (0-3)
[2024-04-11 07:30] LABS: Bacteria Urine Trace /hpf
[2024-04-11 07:33] LABS: INR 3.6; Prothrombin Time 36.1 Seconds (9.50-12.1)
[2024-04-11 08:13] LABS: Alanine Aminotransferase 43 U/L (16-63); Alkaline Phosphatase 105 U/L (46-116); Anion Gap 10 mmol/L (4-12); Aspartate Amino Transferase 30 U/L (15-37); Bilirubin,Total 0.4 mg/dL (0.00-1.00); Blood Urea Nitrogen 13 mg/dL (7-18); Calcium 8.8 mg/dL (8.5-10.1); Carbon Dioxide 26 mmol/L (21-32); Chloride 104 mmol/L (98-108); Cholesterol 130 mg/dL (0-200); Estimated Glomerular Filt Rate > 60; Glucose 129 mg/dL (70-99); HDL Direct 30 mg/dL (40-60); LDL Cholesterol Calculated 43 mg/dL (<130); Osmolality Calculated 292 mOsm/kg (285-295); Prostate Specific Antigen 0.6 ng/mL (< OR = 4.0); Sodium 140 mmol/L (136-145); Thyroid Stimulating Hormone 1.86 uIU/mL (0.36-3.74); Total Protein 6.6 g/dL (6.4-8.2); Triglycerides 285 mg/dL (0-150)
[2024-04-11 12:29] LABS: Hemoglobin A1C 5.6 % (<5.7)
== END 2024-04-11 07:07 | disposition home or self-care (01) ==
LOC: CHSLAB 07:07
PROVIDERS: PCP Internal Medicine; Visit Provider Internal Medicine
DX: Z12.5 Encounter for screening for malignant neoplasm of prostate (principal); Z79.01 Long term (current) use of anticoagulants; R73.01 Impaired fasting glucose; I10 Essential (primary) hypertension; E78.2 Mixed hyperlipidemia; R73.03 Prediabetes
CPT/HCPCS: 36415; 80053; 80061; 81001; 83036; 84153; 84443; 85025; 85610; G0103

== ENCOUNTER 2024-04-24 10:08 | Emergency (ER) | payer MEDICARE, OTHER, SELFPAY ==
[2024-04-24] VITALS (36 sets, daily range): BP systolic 102–131; BP diastolic 51–76; PULSE 44–74; RESP 10–25; TEMP 35.6–35.7; O2SAT 95–98
--- NOTE | ~2024-04-24 | XR_ITS ---
Portable chest x-ray Comparison: 04/20/2018 Clinical History: Weakness, hypotensive Findings: Lungs are clear, without focal consolidation or pleural effusion. Cardiomediastinal silho uette is stable, status post interval median sternotomy. Bones and soft tissues are unremarkable. Impression: Clear lungs. Status post interval probable cardiac surgery. Correlate with surgical history. Reviewed, dictated and finalized at [facility]. Impression: Clear lungs. Status post interval probable cardiac surgery. Correlate with surgical history.
--- NOTE | ~2024-04-24 | CT_ITS ---
CT brain wo con Ordering provider: Isac Dias MD History: 63 years Male with . weakness, prior cva, hypotensive . Comparison: None. Technique: CT of the head without contrast. Radiation reduction technique utilized. DLP is 605.33 mGy. FINDINGS: BRAIN PARENCHYMA AND CSF SPACES: Old infarct with encephalomalacia in the left occipital lobe is seen . No midline shift, mass effect or hemorrhage. The brain parenchyma and CSF spaces are otherwise nor mal. VISUALIZED PARANASAL SINUSES: Well aerated. MASTOIDS: Well aerated. BONES: The bones appear intact. SOFT TISSUES: Visualized nasopharynx is normal. Superficial soft tissues are normal. IMPRESSION: No acute intracranial findings. Reviewed, dictated and finalized at location A.
--- NOTE | 2024-04-24 10:36 | ECG_ITS ---
Test Date: 2024-04-24 10:24:34 Measurements Intervals [place] Rate: 66 P: 96 CA: 83 QRS: -19 QRSD: 99 T: 91 QT: 426 QTc: 450 Interpretive Statements SINUS RHYTHM WITH SHORT CA INTERVAL WITH FREQUENT VENTRICULAR PREMATURE COMPLEXES IN A BIGEMINAL PATTERN BORDERLINE ST-T WAVE ABNORMALITY- HIGH LATERAL LEADS BASELINE ARTIFACT- I, II, AVR, AVL, AVF ABNORMAL ECG No previous ECG available for comparison Electronically Signed On 04-24-2024 11:03:42 CDT by Donovan Manrique D.O.
--- NOTE | 2024-04-24 10:38 | ED.WEAKNESS ---
HPI - Weakness General Chief complaint: Weakness Stated complaint: dehydration Time Seen by Provider: 04/24/24 10:18 Source: patient and other (Dr. Daigle) History of Present Illness HPI Narrative: 63-year-old white male with a history of coronary artery disease, previous CABG, previous RCA stent, hypertension, prior CVA felt secondary to bicuspid aortic valve, subsequent aortic valve replacement, on anticoagulation, and presents with about a 4 day history of some intermittent diarrhea, and overall feeling of fatigue and weakness. He reports he last felt well last Tuesday, on Tuesday he was working on his boat in the garage, it was a very hot day, and he reports that that evening he felt pretty wiped out, the next day had this significant fatigue, had multiple episodes of diarrhea, had diarrhea again the next day although not as bad, and then has had soft almost liquidy stools the last 2 days. He reports he has had no appetite, has not eaten or drank very much over the past 3 or 4 days. The on the day he was working on his boat he denies any chest pain, shortness of breath, dyspnea on exertion, nausea. he does report some chills prior to developing the diarrhea. When to his physician's office this morning who reports that his blood pressure was around 99 systolic, heart rate was in the 50s, and Dr. Daigle called me and referred him to the ER with concern diarrhea, dehydration, electrolyte abnormalities, possibility of bradycardia, silent MS, recurrent CVA. Related Data Home Medications Medication Instructions Recorded Confirmed allopurinol 100 mg tablet 100 mg PO BID 10/23/19 04/24/24 aspirin 325 mg tablet 81 mg PO DAILY 10/23/19 04/24/24 cholecalciferol (vitamin D3) 25 1,000 unit PO DAILY 10/23/19 04/24/24 mcg (1,000 unit) chewable tablet (Vitamin D3) lisinopril 20 mg tablet 20 mg PO DAILY 10/23/19 04/24/24 nortriptyline 25 mg capsule 25 mg PO HS 10/23/19 04/24/24 pantoprazole 40 mg tablet,delayed 40 mg PO QAM 10/23/19 04/24/24 release sildenafil 100 mg tablet (Viagra) 100 mg PO DAILY 10/23/19 04/24/24 carvedilol 3.125 mg tablet 3.125 mg PO BID 04/24/24 04/24/24 felodipine 5 mg tablet,extended 10 mg PO DAILY 04/24/24 04/24/24 release 24 hr rosuvastatin 5 mg tablet 5 mg PO DAILY 04/24/24 04/24/24 warfarin 1 mg tablet 1 mg PO DAILY 04/24/24 04/24/24 warfarin 7.5 mg tablet 7.5 mg PO DAILY 04/24/24 04/24/24 Allergies Allergy/AdvReac Type Severity Reaction Status Date / Time pravastatin Allergy Mild Cramping Verified 04/24/24 10:23 of the Muscles Review of Systems Review of Systems: All systems reviewed & are unremarkable except as noted in HPI and below PMFSH Past Medical History Medical History (Updated 04/24/24 @ 14:33 by Isac Dias MD) Bicuspid aortic valve Cerebrovascular accident left occipital infarct; presumed cardioembolic related to bicuspid aortic valve Hyperlipidemia Hypertension Sleep disorder Stroke Surgical History Surgical History History of cholecystectomy History of microdiscectomy L5-S1 09/2014 Family History Family History Father COPD (chronic obstructive pulmonary disease) Mother Hypertension Dementia Coronary artery disease Grandparent Heart disease Social History Social History Smoking status: Former smoker Tobacco type: cigarettes Alcohol intake: never Living arrangements: with family Occupation/Education: occupation Additional occupation/education comments: Waste plant Exam Narrative: pleasant, well-appearing, appropriately interactive, no acute distress Const: General: cooperative, healthy appearing, comfortable, no acute distress, well developed, alert, awake and Physically active Orientation/consciousness: patient oriented x3 HENMT: Head: normal to in
[2024-04-24 11:14] LABS: Basophils Absolute Auto 0.06 K/mm3 (0.00-0.10); Basophils Percent Auto 0.5 % (0.0-1.0); Eosinophils Absolute Auto 0.16 K/mm3 (0.02-0.50); Eosinophils Percent Auto 1.4 % (1.0-6.0); Hematocrit 40.5 % (37.0-46.0); Hemoglobin 14.1 g/dL (12.4-15.3); Immature Granulocyte Absolute 0.06 K/mm3 (0.00-0.00); Immature Granulocyte Percent A 0.5 % (0.0-0.0); Lymphocytes Absolute Auto 1.28 K/mm3 (1.10-4.50); Lymphocytes Percent Auto 10.8 % (18.0-42.0); Mean Corpuscular HGB Conc 34.8 g/dL (32-36); Mean Corpuscular Hemoglobin 29.9 pg (27.0-31.0); Mean Platelet Volume 9.5 fl (8.7-11.0); Monocytes Absolute Auto 1.08 K/mm3 (0.10-0.90); Monocytes Percent Auto 9.1 % (2.0-11.0); Neutrophils Absolute Auto 9.18 K/mm3 (1.70-7.20); Neutrophils Percent Auto 77.7 % (50.0-70.0); Platelet Count Result 213 K/mm3 (150-420); Red Blood Count 4.71 M/mm3 (4.70-6.10); Red Cell Distribution Width 13.1 % (11.6-14.4); White Blood Count 11.8 K/mm3 (4.8-10.8)
[2024-04-24 11:30] LABS: INR 2.8; Partial Thromboplastin Time 38.4 Sec (23.9-30.70); Prothrombin Time 28.6 Seconds (9.50-12.1)
[2024-04-24 11:39] LABS: Alanine Aminotransferase 125 U/L (16-63); Albumin Level 3.2 g/dL (3.4-5.0); Alkaline Phosphatase 105 U/L (46-116); Anion Gap 8 mmol/L (4-12); Aspartate Amino Transferase 110 U/L (15-37); Bilirubin,Total 0.9 mg/dL (0.00-1.00); Blood Urea Nitrogen 18 mg/dL (7-18); Calcium 8.4 mg/dL (8.5-10.1); Carbon Dioxide 27 mmol/L (21-32); Chloride 95 mmol/L (98-108); Estimated CRCL calculation 63 ml/min; Estimated Glomerular Filt Rate 54; Glucose 120 mg/dL (70-99); Osmolality Calculated 272 mOsm/kg (285-295); Potassium 3.5 mmol/L (3.5-5.1); Sodium 130 mmol/L (136-145); Total Protein 6.7 g/dL (6.4-8.2)
[2024-04-24 11:53] LABS: Troponin I 10.6 ng/L (0.00-60.4)
[2024-04-24] MEDS: LACTATED RINGERS 1,000 ML 999 ML IV CONT ×2 (12:21→12:49)
[2024-04-24 14:21] LABS: Troponin I 11.7 ng/L (0.00-60.4)
== END 2024-04-24 14:35 | disposition home or self-care (01) ==
PROVIDERS: Emergency Provider Emergency Medicine; PCP Internal Medicine
DX: E86.0 Dehydration (principal); R00.1 Bradycardia, unspecified; R00.8 Other abnormalities of heart beat; I25.10 Atherosclerotic heart disease of native coronary artery without angina pectoris; I10 Essential (primary) hypertension; E78.5 Hyperlipidemia, unspecified; Z95.1 Presence of aortocoronary bypass graft; Z86.73 Personal history of transient ischemic attack (TIA), and cerebral infarction without residual deficits; Z79.01 Long term (current) use of anticoagulants; Z79.82 Long term (current) use of aspirin; Z87.891 Personal history of nicotine dependence
CPT/HCPCS: 36415; 70450; 71045; 80053; 84484; 85025; 85610; 85730; 93005; 96365; 99284; J7120

== ENCOUNTER 2024-05-31 07:33 | Outpatient (CLI) | payer MEDICARE, OTHER, SELFPAY ==
--- NOTE | ~2024-05-31 | XR_ITS ---
XR hip RT min 2V 05/31/2024 08:34 Indication: Right hip pain. Acute on chronic. Procedure: 2 views right hip Comparison: 12/16/2011 Findings: There is an irregular lucency in the right femoral head which is stable compared with prior examinations allowing for differences of technique. There is mild osteoarthritis of the right hip. N o significant soft tissue abnormality. No foreign bodies. Impression: 1: No acute bone or joint abnormality. Reviewed, dictated and finalized at location B. Impression: 1: No acute bone or joint abnormality.
[2024-05-31 07:59] LABS: INR 2.4; Prothrombin Time 25.1 Seconds (9.50-12.1)
== END 2024-05-31 07:34 | disposition home or self-care (01) ==
LOC: CHSLAB 07:35
PROVIDERS: PCP Internal Medicine; Visit Provider Internal Medicine
DX: Z79.01 Long term (current) use of anticoagulants (principal); M25.551 Pain in right hip
CPT/HCPCS: 36415; 73502; 85610

== ENCOUNTER 2024-07-20 07:01 | Outpatient (CLI) | payer MEDICARE, SELFPAY ==
[2024-07-20 07:30] LABS: INR 1.4; Prothrombin Time 15.4 Seconds (9.50-12.1)
== END 2024-07-20 07:02 | disposition home or self-care (01) ==
LOC: CHSLAB 07:02
PROVIDERS: PCP Internal Medicine; Visit Provider Internal Medicine
DX: I10 Essential (primary) hypertension (principal); Z79.01 Long term (current) use of anticoagulants
CPT/HCPCS: 36415; 85610

== ENCOUNTER 2024-08-08 07:06 | Outpatient (RCR) | payer MEDICARE, SELFPAY ==
[2024-05-15 07:44] LABS: INR 1.8; Prothrombin Time 19.3 Seconds (9.50-12.1)
[2024-05-16 07:37] LABS: INR 1.7; Prothrombin Time 18.3 Seconds (9.50-12.1)
[2024-05-24 07:23] LABS: INR 2.3
[2024-06-21 07:36] LABS: Basophils Percent Auto 1.2 % (0.0-1.0); Eosinophils Percent Auto 2.5 % (1.0-6.0); Hematocrit 45.7 % (37.0-46.0); Hemoglobin 15.5 g/dL (12.4-15.3); Immature Granulocyte Absolute 0.03 K/mm3 (0.00-0.00); Immature Granulocyte Percent A 0.4 % (0.0-0.0); Lymphocytes Absolute Auto 1.54 K/mm3 (1.10-4.50); Lymphocytes Percent Auto 19.1 % (18.0-42.0); Mean Corpuscular HGB Conc 33.9 g/dL (32-36); Mean Corpuscular Hemoglobin 29.9 pg (27.0-31.0); Mean Corpuscular Volume 88.2 fL (78.0-102.0); Mean Platelet Volume 8.9 fl (8.7-11.0); Monocytes Absolute Auto 0.55 K/mm3 (0.10-0.90); Monocytes Percent Auto 6.8 % (2.0-11.0); Neutrophils Absolute Auto 5.63 K/mm3 (1.70-7.20); Platelet Count Result 216 K/mm3 (150-420); Red Blood Count 5.18 M/mm3 (4.70-6.10); Red Cell Distribution Width 13.3 % (11.6-14.4); White Blood Count 8.1 K/mm3 (4.8-10.8)
[2024-06-22 09:52] LABS: Alanine Aminotransferase 37 U/L (6-50); Albumin Level 4.3 g/dL (3.5-5.1); Alkaline Phosphatase 107 U/L (38-126); Anion Gap 11 mmol/L (4-12); Aspartate Amino Transferase 41 U/L (17-59); Bilirubin,Total 0.5 mg/dL (0.2-1.3); Blood Urea Nitrogen 19 mg/dL (9-20); Carbon Dioxide 24 mmol/L (22-30); Chloride 101 mmol/L (98-107); Estimated Glomerular Filt Rate > 60; Glucose 128 mg/dL (65-110); Osmolality Calculated 286 mOsm/kg (285-295); Sodium 136 mmol/L (137-145)
[2024-07-16 07:20] LABS: INR 1.3; Prothrombin Time 13.8 Seconds (9.50-12.1)
[2024-08-08 07:44] LABS: INR 2.7; Prothrombin Time 27.2 Seconds (9.50-12.1)
== END 2024-08-13 23:59 | disposition home or self-care (01) ==
LOC: CHSLAB 07:06
PROVIDERS: PCP Internal Medicine; Visit Provider Internal Medicine
DX: Z51.81 Encounter for therapeutic drug level monitoring (principal); Z79.01 Long term (current) use of anticoagulants
CPT/HCPCS: 36415; 80053; 85025; 85610

== ENCOUNTER 2024-09-17 07:01 | Outpatient (CLI) | payer MEDICARE, SELFPAY ==
[2024-09-17 07:20] LABS: Basophils Percent Auto 1.5 % (0.0-1.0); Eosinophils Absolute Auto 0.25 K/mm3 (0.02-0.50); Eosinophils Percent Auto 3.6 % (1.0-6.0); Hematocrit 40.3 % (37.0-46.0); Hemoglobin 13.1 g/dL (12.4-15.3); Immature Granulocyte Absolute 0.02 K/mm3 (0.00-0.00); Immature Granulocyte Percent A 0.3 % (0.0-0.0); Lymphocytes Absolute Auto 1.28 K/mm3 (1.10-4.50); Lymphocytes Percent Auto 18.7 % (18.0-42.0); Mean Corpuscular HGB Conc 32.5 g/dL (32-36); Mean Corpuscular Hemoglobin 26.2 pg (27.0-31.0); Mean Corpuscular Volume 80.6 fL (78.0-102.0); Mean Platelet Volume 8.9 fl (8.7-11.0); Monocytes Absolute Auto 0.42 K/mm3 (0.10-0.90); Monocytes Percent Auto 6.1 % (2.0-11.0); Neutrophils Absolute Auto 4.78 K/mm3 (1.70-7.20); Neutrophils Percent Auto 69.8 % (50.0-70.0); Platelet Count Result 279 K/mm3 (150-420); Red Cell Distribution Width 14.9 % (11.6-14.4); White Blood Count 6.9 K/mm3 (4.8-10.8)
[2024-09-17 07:33] LABS: INR 3.4; Prothrombin Time 33.7 Seconds (9.50-12.1)
[2024-09-17 08:08] LABS: Alanine Aminotransferase 47 U/L (16-63); Albumin Level 3.9 g/dL (3.4-5.0); Alkaline Phosphatase 129 U/L (46-116); Anion Gap 8 mmol/L (4-12); Aspartate Amino Transferase 39 U/L (15-37); Bilirubin,Total 0.4 mg/dL (0.00-1.00); Blood Urea Nitrogen 15 mg/dL (7-18); Calcium 9.2 mg/dL (8.5-10.1); Carbon Dioxide 29 mmol/L (21-32); Chloride 104 mmol/L (98-108); Estimated Glomerular Filt Rate 54; Ferritin 19 ng/mL (26-388); Glucose 140 mg/dL (70-99); Osmolality Calculated 294 mOsm/kg (285-295); Potassium 3.6 mmol/L (3.5-5.1); Sodium 141 mmol/L (136-145); Total Protein 6.6 g/dL (6.4-8.2)
== END 2024-09-17 07:02 | disposition home or self-care (01) ==
LOC: CHSLAB 07:03
PROVIDERS: PCP Internal Medicine; Visit Provider Internal Medicine
DX: K92.2 Gastrointestinal hemorrhage, unspecified (principal); D64.9 Anemia, unspecified
CPT/HCPCS: 36415; 80053; 82728; 85025; 85610

== ENCOUNTER 2024-10-29 06:59 | Outpatient (RCR) | payer MEDICARE, SELFPAY ==
[2024-10-29 07:32] LABS: INR 2.4; Prothrombin Time 24.2 Seconds (9.50-12.1)
== END 2025-01-27 23:59 | disposition home or self-care (01) ==
LOC: CHSLAB 06:59
PROVIDERS: PCP Internal Medicine; Visit Provider Internal Medicine
DX: I10 Essential (primary) hypertension (principal); E79.89 Other specified disorders of purine and pyrimidine metabolism; Z79.01 Long term (current) use of anticoagulants
CPT/HCPCS: 36415; 85610

== ENCOUNTER 2024-11-12 06:57 | Outpatient (CLI) | payer MEDICARE, SELFPAY ==
--- OUTSIDE RECORDS SUMMARY | 2024-11-12 07:01 | XMS_ITS | Continuity of Care Document ---
Author Organization [facility] Address [address] [place] [address] Phone Care Team Providers Care Inspector Mechanical Name Role Phone Levi MACK, Carlotta Unavailable Unavailable Procedures Procedure Date INITIAL INPT/OBS HOSPITAL CARE LV 2 Jun COLONOSCOPY,CONTROL BLEEDING Advance Directives Directive Yes / No Effective Date File Name No Information Encounters Encounter Description Practice Location Reason(s) For Visit Diagnoses Date Provider Providers Copied on Encounter INITIAL INPT/OBS HOSPITAL CARE LVL 2 [facility], [address], [place], [place], [id number], [place] tel:[phone] [facility] No Information Levi Laguerre. [address], [address], [place], [place], [id number], [place]. tel:[phone] Referring Provider: Zaire Sierra, [address], [place], [address]. tel:[phone] Family History Family Member Type Diagnosis Age At Onset No Information Payers Payer name Insurance type Covered green party ID Authorivonea marybeth(s) MEDICARE [id number] [facility] [id number] Social History Type Description Quantity Date Captured Comments Sex Male Smoking Status No Information Chief Complaint And Reason For Visit No Information Reason For Referral Reason For Referral No Information History Of Present Illness Encounter Date Complaint History Of Prese nt Illness No Information Functional Status Date Functional Assessmen t No Information Instructions Date Instruction Additional Infor mation No Information Assessments Type Assessment Date No Information Patient Care Teams Name Effective Dates (start - stop) Status Members No Information
--- OUTSIDE RECORDS SUMMARY | 2024-11-12 07:02 | XMS_ITS ---
Author Organization Unknown Address [address] [place] [phone] Phone Care Team Providers Care Housekeeping Room Inspector Name Role Phone KAT Barton Attending Unavailable KYLE SANTOS CRNA Unavailable ANA GRAVES Primary Unavailable Immunization Immunization Date Status Additional Notes Code Code System Tdap 09/06/2016 Completed 115 CVX Social History Type Status Start Date End Date Code Code Syst em Smoking History Never smoker (Never Smoked) 509511733 SNOMED CT Sex Male Vital Signs Vital Sign Value Unit Stearns Value Stearns Unit Date/Time Recent/Initial? Code Code System Body Mass Index 32.55 kg/m2 07/05/2024 10:26 Most Recent 41173 -5 LOINC Body Mass Index 32.55 kg/m2 05/16/2024 09:18 Initial 38982 -5 LOINC Systolic Blood Pressure 129 mm[Hg] 07/05/2024 10:26 Initial 8480- 6 LOINC Diastolic Blood Pressure 73 mm[Hg] 07/05/2024 10:26 Initial 8462- 4 LOINC Body Surface Area 2.35 m2 07/05/2024 10:26 Most Recent 3140- 1 LOINC Body Surface Area 2.35 m2 05/16/2024 09:18 Initial 3140- 1 LOINC Height 182.880 0 cm 72.00 in 07/05/2024 10:26 Most Recent 8302- 2 LOINC Height 182.880 0 cm 72.00 in 05/16/2024 09:18 Initial 8302- 2 LOINC O2 Saturation 99 % 2023 10:26 Initial 97326 -5 LOINC Pulse 61.0 /min 07/05/2024 10:26 Initial 8867- 4 LOINC Respiration 14 /min 07/05/20 10:26 Initial 9279- 1 [facility] Temperature 36.1 Mary Kate 97.0 F 07/05/20 10:26 Initial 8310- 5 [facility] Weight 108.86 kg 240.00 lbs 07/05/2024 10:26 Most Recent 99527 -7 [facility] Weight 108.86 kg 240.00 lbs 05/16/2024 09:18 Initial 44017 -7 [facility] Medications Medication Start Date End Date Route Frequency Dose Code Code System Medication Instructions Home Meds Allopurinol 100MG Oral Tablet 07/05/2024 Unknown ORAL TWICE A DAY 200 MILLIGRAMS 19721025 RxNorm TAKE 200 MILLIGRAMS ORAL TWICE A DAY Aspirin 81MG Oral Tablet, Enteric Coated 07/05/2024 Unknown ORAL ONCE A DAY 81 MILLIGRAMS 282097 RxNorm TAKE 81 MILLIGRAMS ORAL ONCE A DAY Felodipine 5MG Oral Tablet, Extended Release 07/05/2024 Unknown ORAL ONCE A DAY 10 MILLIGRAMS 656306 RxNorm TAKE 10 MILLIGRAMS ORAL ONCE A DAY Lisinopril 20MG Oral Tablet 07/05/2024 Unknown ORAL ONCE A DAY 20 MILLIGRAMS 479176 RxNorm TAKE 20 MILLIGRAMS ORAL ONCE A DAY Mag-Ox 400 241.3 MG Oral Tablet 07/05/2024 Unknown ORAL ONCE A DAY 241.3 MG 052480 RxNorm TAKE 241.3 MG ORAL ONCE A DAY Nitroglycerin 0.4MG Sublingual Tablet 07/05/2024 Unknown SUBLING UAL DIRECTED 0.[address] 0.4 MILLIGRAMS SUBLINGUAL DIRECTED Nortriptyline HCl 25MG Oral Capsule 07/05/2024 Unknown ORAL AT BEDTIME 25 MILLIGRAMS 293039 RxNorm TAKE 25 MILLIGRAMS ORAL AT BEDTIME One Daily NA Oral Tablet 07/05/2024 Unknown ORAL ONCE A DAY 20001217 RxNorm TAKE NA ORAL ONCE A DAY Pantoprazole Sodium 40 MG Oral Tablet, Delayed Release 07/05/2024 Unknown ORAL ONCE A DAY 40 MG 190993 RxNorm TAKE 40 MG ORAL ONCE A DAY Q-absorb 100MG Oral Capsule, Liquid Filled 07/05/2024 Unknown ORAL ONCE A DAY 200 MILLIGRAMS RxNorm TAKE 200 MILLIGRAMS ORAL ONCE A DAY Rosuvastatin Calcium 5MG Oral Tablet 07/05/2024 Unknown ORAL ONCE A DAY 5 MILLIGRAMS 367194 RxNorm TAKE 5 MILLIGRAMS ORAL ONCE A DAY Viagra 100MG Oral Tablet 07/05/2024 Unknown ORAL ONCE A DAY 100 MILLIGRAMS 302358 RxNorm TAKE 100 MILLIGRAMS ORAL ONCE A DAY Vitamin D3 25MCG Oral Tablet 07/05/2024 Unknown ORAL ONCE A DAY 25 MCG RxNorm TAKE 25 MCG ORAL ONCE A DAY Warfarin Sodium 1MG Oral Tablet 07/05/2024 Unknown ORAL DIRECTED 1 MILLIGRAMS 808133 RxNorm TAKE 1 MILLIGRAMS ORAL DIRECTED Warfarin Sodium 7.5MG Oral Tablet 07/05/2024 Unknown ORAL ONCE A DAY 7.5 MILLIGRAMS 292558 RxNorm TAKE 7.5 MILLIGRAMS ORAL ONCE A DAY Hospital Discharge Instructions Should you have any questions prior to discharge, please contact a member of your healthcare team. If you have left the hospital and have any questions, please contact your primary care physician. Reason For Referral No Data Found Procedures Procedure Name Date Status Code Code Syste m Anesthesia for lower intesti nal endoscopic procedures, endoscope introduce 07/05/2024 completed 19341 CPT History of decompressive lum bar laminectomy completed 202591135 SNOMEDCT Microdiscectomy completed 985782343 SNOMEDCT Colonoscopy, flexible; with removal of tumor(s), polyp(s), or other lesion 07/05/2024 completed 48590 CPT Cholecystectomy completed 87473508 SNOMEDCT CABG completed 563961287 SNOMEDCT Bicuspid aortic valve completed 99702112 SNO MEDCT Allergies and Adverse Reactions Allergy Substance Reaction Severity Start Date Concern Status Co de Code System PRAVASTATIN Active 12739 RxNorm ATORVASTATIN Active 78279 RxNorm No Known Drug Allergies Active 908437675 SNOMED-CT Plan of Treatment Colonoscopy 07/05/2024 Encounters Encounter Diagnosis Start Date Code Code Sys tem Encounter for screening for malignant neoplasm of colo n 07/05/2024 SNOMED-CT Personal Care Team Section Performer Name Performer Role Active Date Inactive Da te
--- OUTSIDE RECORDS SUMMARY | 2024-11-12 07:02 | XMS_ITS | Encounter Summary ---
Author Organization [facility] Address [address] [place] [address]. [place], [place] [address] [place] [address] Care Team Providers Care Ambulance Driver Paramedic Name Role Phone Jovanny Daigle MD Primary Care Provider [phone] Isac Peoples MD Unavailable Unavailabl e Giana Herrera APRN, [employer] CERTIFIED ORTHOTIST-C Unavailable Russell Arnold MD Unavailable [phone] Jaida Kellogg ANP-BC Unavailable [phone] Encounter Details Date Type Department Care Team (Late st Contact Info) Description 02/15/2023 Hospital Orders Only [facility] Lab Pre/Post [address] [place] [address] Isac Peoples MD Social History Tobacco Use Types Packs/Day Years Used Date Smoking Tobacco: Former Cigarettes Smokeless Tobacco: Current Chew Comments:quit approx 20 yrs Alcohol Use Standard Drinks/Week Comments No 0 (1 standard drink = 0.6 oz pur e alcohol) Sex and Gender Information Value Date Recorded Sex Assigned at Not on file Legal Sex Male 9:47 PM CDT Gender Identity Not on file Sexual Orientation Not on file COVID-19 Exposure Response Date Recorded In the last 10 days, have yo u been in contact with someone who was confirmed or suspected to have Coronavirus/COVID-19? No / Unsure 02/18/2023 1:25 PM CDT documented as of this encounter Functional Status * RETIRED Are you deaf or do you have serious difficulty hearing Answer Date of Assessment Author Status No 05/29/2020 5:13 AM CDT Activ e * RETIRED Are you blind or do you have serious difficulty seeing, even when wearing glasses? Answer Date of Assessment Author Status No 05/29/2020 5:13 AM CDT Activ e * Do you have serious difficulty walking or climbing stairs? Answer Date of Assessment Author Status No 05/29/2020 5:13 AM PHILT Suyapa Mcfarland RN Active * Do you have difficulty dressing or bathing? Answer Date of Assessment Author Status No 05/29/2020 5:13 AM PHILT Suyapa Mcfarland RN Active * Because of a physical, mental, or emotional condition, do you have difficulty doing errands alone such as visiting a doctor's office or shopping? Answer Date of Assessment Author Status No 05/29/2020 5:13 AM Suyapa Westfall RN Active documented as of this encounter Mental Status * Because of a physical, mental, or emotional condition, do you have serious difficulty concentrating, remembering, or making decisions? Answer Entry Date Author Status No 05/29/2020 5:13 AM Suyapa Westfall RN Active documented in this encounter Plan of Treatment Upcoming Encounters Date Type Department Care Team (Late st Contact Info) Description 11/26/2024 7:30 AM DRAG OUT WORKER Appointment [facility] [place] [address] Jaida Kellogg, ANP-BC [address] [place] [address] 11/26/2024 8:00 AM DRAG OUT WORKER Appointment [facility] [place] [address] Jaida Kellogg, ANP-BC [address] [place] [address] 11/26/2024 8:30 AM DRAG OUT WORKER Appointment [facility] [place] [address] Jaida Kellogg, ANP-BC [address] [place] [address] [place] [address] [address] [place] [address] 11/26/2024 10:00 AM DRAG OUT WORKER Appointment [facility] [address] [place] [address] Jaida Kellogg ANP-BC [address] [place] [address] 05/22/2025 11:30 AM CDT Office Visit [facility] [place] [phone] Jaida Kellogg ANP-SADAF [address] [place] [address] documented as of this encounter Visit Diagnoses Not on filedocumented in this encounter Care Teams Ambulance Driver Paramedic Relationship Specialty Start Date End Date Jovanny Daigle MD [address] [place] [address] PCP - General INTERNAL MEDICINE 08/05/17 Isac Peoples MD [address] [place] [phone] Julian Can Handler CARDIOVASCULAR DISEASE 08/05/17 01/24/24 Giana Herrera, PENSION ADMINISTRATOR, AMERICAN BOARD CERTIFIED ORTHOTIST-C [address] [place] [phone] NURSE PRACTITIONER 09/17/21 01/24/24 Russell Arnold MD [address] [place] [address] INTERVENTIONAL CARDIOLOGY 01/25/24 Jaida Kellogg ANP-BC [address] [place] [address] [phone] Nurse Practitioner NURSE PRACTITIONER ADULT HEALTH 01/25/24 documented as of this encounter
--- OUTSIDE RECORDS SUMMARY | 2024-11-12 07:02 | XMS_ITS ---
Author Organization Unknown Address [address] [place] [phone] Phone Care Team Providers Care Clinical Laboratory Assistant Name Role Phone JOSE ARCE Attending Unavailable KYLE SANTOS CLIENT ACCOUNT ASSISTANT Unavailable ANA GRAVES Primary Unavailable PHILL Barton Surgeon Unavailable Immunization Immunization Date Status Additional Notes Code Code System Tdap 09/06/2016 Completed 115 CVX Results CBC W/ DIFF - Collect Date/T jadon: 07/05/2024 22:04 [facility] ID: [id number] [address] [place] [address], [phone] LOINC: 89248-6 Test Value Unit Reference Range Code Code System Flag WBC 19.0 10^3uL L=4.8 H=10.8 H RBC 3.95 10^6uL L=4.60 H=6.20 L HEMOGLOBIN 12.0 g/dL L=14.0 H=18.0 718-7 LOINC L HEMATOCRIT 34.4 VOL% L=42.0 H=52.0 4544-3 LOINC L MCV 87.1 fL L=80.0 H=94.0 MCH 30.4 pg L=27.0 H=32.0 MCHC 34.9 g/dL L=32.0 H=36.0 PLATELETS 229 10^3uL L=100 H=400 19358-4 LOINC RDW 13.2 % L=11.7 H=15.5 %GRAN 86.9 % L=40.0 H=70.0 01875-7 LOINC H %LYMPH 6.4 % L=20.0 H=45.0 736-9 LOINC L %MONO 5.4 % L=2.0 H=10.0 32380-9 LOINC %EOS 0.5 % L=0.0 H=6.0 713-8 LOINC %BASO 0.5 % L=0.0 H=3.0 706-2 LOINC #NEUT 16.5 10^3uL L=1.9 H=7.6 25038-8 LOINC H #LYMPH 1.2 10^3uL L=0.9 H=4.9 48753-5 LOINC #MONO 1.0 10^3uL L=0.1 H=0.9 69266-7 LOINC H #EOS 0.1 10^3uL L=0.0 H=0.6 712-0 LOINC #BASO 0.09 10^3uL L=0.00 H=0.10 71274-1 LOINC #IM GRANS 0.1 10^3uL L=0.0 H=7.0 68701-4 LOINC %IM GRANS 0.3 % L=0.0 H=5.0 30939-1 LOINC %NRB 0.0 L=0.0 H=0.2 89073-5 LOINC #NRB 0.000 L=0.000 H=0.012 11586-4 LOINC MANUAL DIFF NOT INDICATED RBC MORPH NOT INDICATED BB ABO GROUP - Collect Date/ Time: 07/05/2024 20:00 [facility] ID: [id number] [place] [address], [phone] LOINC: 883-9 Test Value Unit Reference Range Code Code System Flag ABO TYPE O 883-9 LOINC BB RETYPE ABO TYPE - Collect Date/Time: 07/05/2024 20:00 [facility] ID: [id number] [place] [address], [phone] LOINC: 883-9 Test Value Unit Reference Range Code Code System Flag ABO TYPE O 883-9 LOINC PROTIME - Collect Date/Time: 07/05/2024 19:17 [facility] ID: [id number] [address] [place], [place], [id number] LOINC: 39786-5 Test Value Unit Reference Range Code Code System Flag PT 37.2 Sec L=9.7 H=11.7 71053-4 LOINC H INR 3.8 Sec L=0.9 H=1.1 41431-2 LOINC H CBC W/ DIFF - Collect Date/T jadon: 07/05/2024 19:17 [facility] ID: [id number] [address] [place], [place], [phone] LOINC: 48220-7 Test Value Unit Reference Range Code Code System Flag WBC 12.4 10^3uL L=4.8 H=10.8 H RBC 4.35 10^6uL L=4.60 H=6.20 L HEMOGLOBIN 13.2 g/dL L=14.0 H=18.0 718-7 LOINC L HEMATOCRIT 38.8 VOL% L=42.0 H=52.0 4544-3 LOINC L MCV 89.2 fL L=80.0 H=94.0 MCH 30.3 pg L=27.0 H=32.0 MCHC 34.0 g/dL L=32.0 H=36.0 PLATELETS 231 10^3uL L=100 H=400 12770-3 LOINC RDW 13.4 % L=11.7 H=15.5 %GRAN 79.3 % L=40.0 H=70.0 55897-5 LOINC H %LYMPH 11.2 % L=20.0 H=45.0 736-9 LOINC L %MONO 7.1 % L=2.0 H=10.0 21050-5 LOINC %EOS 1.4 % L=0.0 H=6.0 713-8 LOINC %BASO 0.8 % L=0.0 H=3.0 706-2 LOINC #NEUT 9.8 10^3uL L=1.9 H=7.6 56520-2 LOINC H #LYMPH 1.4 10^3uL L=0.9 H=4.9 25802-1 LOINC #MONO 0.9 10^3uL L=0.1 H=0.9 61957-7 LOINC #EOS 0.2 10^3uL L=0.0 H=0.6 712-0 LOINC #BASO 0.10 10^3uL L=0.00 H=0.10 63872-4 LOINC #IM GRANS 0.0 10^3uL L=0.0 H=7.0 59341-6 LOINC %IM GRANS 0.2 % L=0.0 H=5.0 27715-8 LOINC %NRB 0.0 L=0.0 H=0.2 23172-1 LOINC #NRB 0.000 L=0.000 H=0.012 30573-0 LOINC MANUAL DIFF NOT INDICATED RBC MORPH NOT INDICATED PTT - Collect Date/Time: 19:17 [facility] ID: [id number] [address] [place] [address], [id number] LOINC: 26948-7 Test Value Unit Reference Range Code Code System Flag PTT 38.8 Sec L=23.0 H=31.2 H COMPREHENSIVE METABOLIC PANE L - Collect Date/Time: 07/05/2024 19:17 [facility] ID: [id number] [address] [place] [address], [id number] LOINC: 47369-6 Test Value Unit Reference Range Code Code System Flag FASTING UNKNOWN BUN 21 mg/dL L=7 H=20 3094-0 LOINC H CREATININE 1.20 mg/dL L=0.66 H=1.25 2160-0 LOINC GLUCOSE 137 mg/dL L=74 H=106 2345-7 LOINC H SODIUM 137 mmol/L L=132 H=144 2951-2 LOINC POTASSIUM 3.1 mmol/L L=3.5 H=5.1 2823-3 LOINC L CHLORIDE 101 mmol/L L=98 H=107 2075-0 LOINC CO2 27.0 mmol/L L=22.0 H=30.0 2027-9 LOINC ANION GAP 12 L=10 H=20 37012-3 LOINC OSMOLALITY 289 mOs/kG L=280 H=296 05503-0 LOINC BUN/CREAT 17.5 3097-3 LOINC CALCIUM 8.8 mg/dL L=8.3 H=10.5 31006-0 LOINC AST 47 U/L L=15 H=46 1920-8 LOINC H ALT 43 U/L L=9 H=72 1742-6 LOINC ALKALINE PHOS 77 U/L L=38 H=126 6768-6 LOINC TOTAL BILI 0.7 mg/dL L=0.2 H=1.3 1975-2 LOINC ALBUMIN 4.0 G/dL L=3.5 H=5.0 1751-7 LOINC TOTAL PROTEIN 6.4 g/L L=6.3 H=8.2 2885-2 LOINC A/G RATIO 1.7 00729-0 LOINC AGE 64 26898-3 LOINC eGFR NON-AFR 64 ml/min eGFR AFR AMER 77 ml/min LIPASE - Collect Date/Time: 07/05/2024 19:17 [facility] ID: [id number] [address] [place], [place], [phone] LOINC: 3040-3 Test Value Unit Reference Range Code Code System Flag LIPASE 70 U/L L=23 H=300 3040-[address] ANGIO ABD/PEL W+WO CONTRA ST - Completed: 07/05/2024 20:40 LOINC: EXAM DESCRIPTION: CT ANGIO ABD/PEL W+WO CONTRAST REASON FOR STUDY: Severe rectal bleeding after colonoscopy with polypectomy. Multiple polyps removed/clamped off with a couple being quite large. Patient is on coumadin. Colonoscopy was around 11:30 this AM. Bleeding started around 18:00 this evening. Duration: this evening around 18:00 Previous Surgery: colonoscopy with multiple polypectomy today at 11:30 TECHNIQUE: CTA scan of the abdomen and pelvis performed without and with intravenous and without oral contrast using helical scanning technique with dynamic intravenous contrast injection. Precontrast, arterial, and portal venous phase images of the abdomen and pelvis were acquired. Images reviewed with lung, soft tissue and bone windows. Reconstructed coronal and sagittal MPR images reviewed. All images stored on PACS. 3D MIP images rendered on scanning unit and reviewed at time of interpretation. Automated exposure control was used as a dose optimization technique for this examination. CONTRAST TYPE/DOSE: 100 cc of Isovue 370 injected via Right AC COMPARISON: None FINDINGS: VASCULATURE: No gross contrast extravasation is seen. Delayed images demonstrate no gross pooling of contrast. The aorta is normal in caliber. Moderate atherosclerosis within the infrarenal aorta. Moderate stenosis of the origin of the celiac artery with J-shaped configuration. This can be seen in the setting of median arcuate ligament syndrome. Moderate stenosis of the superior mesenteric artery. No significant stenosis elsewhere. LOWER CHEST: Minimal bibasilar atelectasis LIVER: The liver is normal in size. Undulating surface appearance of the liver may reflect chronic underlying liver disease. Hypoattenuation is noted adjacent to the falciform ligament within the dome which likely represents focal fat. GALLBLADDER/BILE DUCTS: Absent. No gross biliary ductal dilatation SPLEEN: Spleen is normal in size with calcified granulomas. PANCREAS: The pancreas is normal in size. No significant peripancreatic stranding or main ductal dilatation ADRENALS: No measurable nodule. KIDNEYS/URETERS: The kidneys are normal in size. Symmetric in enhancement. No hydronephrosis or significant perinephric stranding. A 2.1 cm left renal cyst is noted. Urinary bladder is decompressed GASTROINTESTINAL: Colonic diverticulosis is noted. Biopsy clips are noted within the cecum. There is mild thickening of the cecum. Focal free air is noted about the lateral aspect of the ascending colon and cecum. The appendix is prominent measuring 9 mm without periappendiceal stranding to suggest acute appendicitis. The terminal ileum appears normal. The remainder of the small bowel appears normal without wall thickening or evidence of obstruction. The stomach is distended. A small duodenal diverticulum is seen. REPRODUCTIVE: Prominent prostate PERITONEUM/RETROPERITONEUM: Again noted is free air about the proximal ascending colon and cecum and abutting the inferior right liver tip. No organized drainable fluid collection. No ascites. Small fat containing umbilical hernia. Prominent periportal lymph nodes are noted. No retroperitoneal or inguinal lymphadenopathy MUSCULOSKELETAL: No gross acute osseous abnormality. OTHER: No significant abnormality. IMPRESSION: 1. Surgical clips within the cecum. Free air is seen about the cecum and proximal ascending colon as evidence for bowel perforation. No gross contrast extravasation to suggest active bleed. Findings discussed with Dr. Shah at approximately 9:30 p.m. on 07/05/2024. THIS IS AN ELECTRONICALLY VERIFIED FINAL REPORT 07/05/2024 9:34 PM - Electronically signed by Willie Toney M.D. AG: ANTONIA Report ID: [id number] Reading Location: [id number] Social History Type Status Start Date End Date Code Code Syst em Smoking History Never smoker (Never Smoked) 650284751 SNOMED CT Sex Male Medications Medication Start Date End Date Route Frequency Dose Code Code System Medication Instructions Home Meds Allopurinol 100MG Oral Tablet 07/05/2024 Unknown ORAL TWICE A DAY 200 MILLIGRAMS 015962 RxNorm TAKE 200 MILLIGRAMS ORAL TWICE A DAY Aspirin 81MG Oral Tablet, Enteric Coated 07/05/2024 Unknown ORAL ONCE A DAY 81 MILLIGRAMS 941424 RxNorm TAKE 81 MILLIGRAMS ORAL ONCE A DAY Felodipine 5MG Oral Tablet, Extended Release 07/05/2024 Unknown ORAL ONCE A DAY 10 MILLIGRAMS 179887 RxNorm TAKE 10 MILLIGRAMS ORAL ONCE A DAY Lisinopril 20MG Oral Tablet 07/05/2024 Unknown ORAL ONCE A DAY 20 MILLIGRAMS 449552 RxNorm TAKE 20 MILLIGRAMS ORAL ONCE A DAY Mag-Ox 400 241.3 MG Oral Tablet 07/05/2024 Unknown ORAL ONCE A DAY 241.3 MG 764588 RxNorm TAKE 241.3 MG ORAL ONCE A DAY Nitroglycerin 0.4MG Sublingual Tablet 07/05/2024 Unknown SUBLING UAL DIRECTED 0.[address] 0.4 MILLIGRAMS SUBLINGUAL DIRECTED Nortriptyline HCl 25MG Oral Capsule 07/05/2024 Unknown ORAL AT BEDTIME 25 MILLIGRAMS 474725 RxNorm TAKE 25 MILLIGRAMS ORAL AT BEDTIME One Daily NA Oral Tablet 07/05/2024 Unknown ORAL ONCE A DAY 20001217 RxNorm TAKE NA ORAL ONCE A DAY Pantoprazole Sodium 40 MG Oral Tablet, Delayed Release 07/05/2024 Unknown ORAL ONCE A DAY 40 MG 466435 RxNorm TAKE 40 MG ORAL ONCE A DAY Q-absorb 100MG Oral Capsule, Liquid Filled 07/05/2024 Unknown ORAL ONCE A DAY 200 MILLIGRAMS RxNorm TAKE 200 MILLIGRAMS ORAL ONCE A DAY Rosuvastatin Calcium 5MG Oral Tablet 07/05/2024 Unknown ORAL ONCE A DAY 5 MILLIGRAMS 822868 RxNorm TAKE 5 MILLIGRAMS ORAL ONCE A DAY Viagra 100MG Oral Tablet 07/05/2024 Unknown ORAL ONCE A DAY 100 MILLIGRAMS 460134 RxNorm TAKE 100 MILLIGRAMS ORAL ONCE A DAY Vitamin D3 25MCG Oral Tablet 07/05/2024 Unknown ORAL ONCE A DAY 25 MCG RxNorm TAKE 25 MCG ORAL ONCE A DAY Warfarin Sodium 1MG Oral Tablet 07/05/2024 Unknown ORAL DIRECTED 1 MILLIGRAMS 367434 RxNorm TAKE 1 MILLIGRAMS ORAL DIRECTED Warfarin Sodium 7.5MG Oral Tablet 07/05/2024 Unknown ORAL ONCE A DAY 7.5 MILLIGRAMS 659732 RxNorm TAKE 7.5 MILLIGRAMS ORAL ONCE A [...] nal endoscopic procedures, endoscope introduce 07/05/2024 completed 80391 CPT Colonoscopy, flexible; with removal of tumor(s), polyp(s), or other lesion 07/05/2024 completed 78405 CPT Transfusion, blood or blood components 07/06/2024 complete d 66036 CPT Allergies and Adverse Reactions Allergy Substance Reaction Severity Start Date Concern Status Co de Code System PRAVASTATIN Active 39151 RxNorm ATORVASTATIN Active 19265 RxNorm No Known Drug Allergies Active [id number] SNOMED-CT Plan of Treatment Colonoscopy 07/05/2024 Encounters Encounter Diagnosis Start Date Code Code Sys tem Gastrointestinal hemorrhage, unspecified 07/05/2024 SNOMED-CT Personal Care Team Section Performer Name Performer Role Active Date Inactive Da te Imaging Narrative Notes Progress Notes [facility] 07/17/2024 16:12 GI Phill 17 July 2024 1600 I was notified by Dr. Shah on pm Jun that patient presented to the ER with BRBPR. INR about 3.[address] with free air. By his report exam was benign and WBC essentially normal. I suggested giving patient one dose of Zosyn and transfer to tertiary hospital for further eval and treatment. I was notified next am he was transferred to [facility]. On Jun am I called and spoke with RN caring for the patient who stated patient was comfortable in bed and in NAD. I spoke to the patient who told me he had stopped bleeding and that hospital wanted to transfer him as Surgery refused to see him as they would not do surgery on him because of his heart valve. It did not sound as if he needed surgery as he clearly did not have peritonitis from discussion with the patient and nurse. His Hct was stable and INR 1.2. I spoke with the Hospitalist shortly thereafter and the GI doctor crime prevention police officer. I suggested they get a CT angio to document no FA or bleed. This was done and was apparently negative. By report of Dr. Willard, GI to me he got repeat colonoscopy at [facility] with clip and cautery. I just spoke with the patient by phone. He is doing fine. No abdominal pain or bleed. He tells me he got a repeat colonoscopy as above and was still transferred to [facility] for observation and sent home where he continues to do fine. I reviewed his pathology with him. His polyps were benign but pre-cancerous. He should have repeat colonoscopy in two years. He voices understanding and agrees. He will follow up with Dr. Daigle as needed and further recs regarding anticoagulants per him and [facility]. Call with questions or concerns. Willie Pollock MD [phone] Cc: Dr. Daigle
--- OUTSIDE RECORDS SUMMARY | 2024-11-12 07:02 | XMS_ITS | Referral Summary ---
Author Organization [facility] Address [address] [place] [address] Care Team Providers Care Ethanol Maintenance Mechanic Name Role Phone Unavailable Primary Care Provider Unavailabl e Source Comments [facility],non-owned Affiliates and Associated Physician Practices is amultiple site organization consisting of ambulatory clinics and hospital sitesin [place], [place], [place] and [place]. This disclosure is being madepursuant to the Care Everywhere program and may not contain all information available regarding this patient. Last updated 18.[facility] Allergies Active Allergy Reactions Criticality Noted Date Comments Hmg-Coa-R Inhibitors GI Discomfort 07/08/2024 Medications * Be aware that medications may not be up to date on this document. Alwaysverify current medications with the patient. Medication Sig Dispensed Refills Start Date End Date Status warfarin (Coumadin) 7.5 MG tablet Take 1 (one) tablet by mouth once daily for 30 days 30 tablet 07/11/2024 Active warfarin (Coumadin) 1 MG tablet Take 1 (one) tablet by mouth once daily for 30 days 30 tablet 07/11/2024 Active rosuvastatin (Crestor) 5 MG tablet Take 1 (one) tablet by mouth once daily 90 tablet 07/11/2024 Active losartan - hydroCHLOROthiazide (Hyzaar) 50-12.5 MG tablet Take 1 (one) tablet by mouth once daily 90 tablet 07/11/2024 Active felodipine CR 24hr (Plendil) 5 MG tablet Take 1 (one) tablet by mouth 2 times daily 90 tablet 07/11/2024 Active allopurinol (Zyloprim) 100 MG tablet Take 2 (two) tablets by mouth 2 times daily 90 tablet 07/11/2024 Active pantoprazole EC (Protonix) 40 MG tablet Take 1 (one) tablet by mouth once daily 90 tablet 07/11/2024 Active Active Problems Problem Noted Date Diagnosed Date HTN (hypertension) 07/09/2024 Cerebrovascular disease 07/09/2024 Hypokalemia 07/09/2024 Mechanical heart valve present 07/09/2024 Anticoagulation monitoring, special range 2023 Intestinal perforation 07/09/2024 Gastrointestinal hemorrhage, unspecified gastrointestinal hemorrhage type 07/07/2024 Gastrointestinal hemorrhage with melena 07/05/20 Social History Tobacco Use Types Packs/Day Years Used Date Smoking Tobacco: Former Cigarettes 2 30 0 06/23/1971 - 06/23/2001 Smokeless Tobacco: Never Tobacco Cessation:Counseling Given: No Alcohol Use Standard Drinks/Week Comments Never 0 (1 standard drink = 0.6 oz pur e alcohol) AUDIT-C Answer Date Recorded Q1: How often do you have a drink containing alcohol? Never 07/08/2024 Q2: How many drinks containi ng alcohol do you have on a typical day when you are drinking? Patient does not drink Q3: How often do you have si x or more drinks on one occasion? Never 07/08/2024 Overall Financial Resource Strain (CARDIA) Answe r Date Recorded How hard is it for you to pa y for the very basics like food, housing, medical care, and heating? Not hard at all 07/08/2024 [facility] - Occupational Stress Questionnaire Answer Date Recorded Do you feel stress - tense, restless, nervous, or anxious, or unable to sleep at night because your mind is troubled all the time - these days? Only a little 07/08/2024 Hunger Vital Sign Answer Date Recorded Within the past 12 months, y ou worried that your food would run out before you got the money to buy more. Never true 07/08/20 24 Within the past 12 months, t he food you bought just didn't last and you didn't have money to get more. Never true 07/08/2024 PRAPARE - Transportation Answer Date Re corded In the past 12 months, has l ack of transportation kept you from medical appointments or from getting medications? No 06/18 In the past 12 months, has l ack of transportation kept you from meetings, work, or from getting things needed for daily living? No 07/08/2024 Housing Stability Vital Sign Answer Ze e Recorded In the last 12 months, was t here a time when you were not able to pay the mortgage or rent on time? No 07/08/2024 In the last 12 months, how many places have you lived? 1 07/08/2024 In the last 12 months, was t here a time when you did not have a steady place to sleep or slept in a custodial (including now)? No 07/08/2024 Sex and Gender Information Value Date Recorded Sex Assigned at Not on file Gender Identity Not on file Sexual Orientation Not on file Last Filed Vital Signs Vital Sign Reading Time Taken Comments Blood Pressure 125/71 07/11/2024 4:40 AM CDT Pulse 56 07/11/2024 4:40 AM CDT Temperature 36.9 ??C (98.5 ??F) 07/11/2024 4:40 AM CD T Respiratory Rate 16 07/11/2024 12:1 5 AM CDT Oxygen Saturation 95% 07/11/2024 4:40 AM CDT Inhaled Oxygen Concentration - - Weight 105.3 kg (232 lb 1.6 oz) 07/08/2024 6:43 PM CDT Height 182.9 cm (6') 07/08/2024 6:43 PM CDT Body Mass Index 31.48 07/08/2024 6:43 PM CDT Functional Status Functional Status Response Date of Assess ment Is person deaf or have serious hearing difficult y? No 07/09/2024 Is person blind or have serious difficulty seein g? No 07/09/2024 Does person have serious dif ficulty walking/climbing stairs? No 07/09/2024 Does person have difficulty dressing/bathing? No 07/09/2024 Does person have difficulty doing errands alone? No 07/09/2024 Cognitive Status Response Date of Assessm ent Does person have difficulty concentrating/remembering/making decisions? No 07/09/2024 Plan of Treatment Not on file Procedures Procedure Name Priority Date/Time Associated Diagnosis Comments ENDOSCOPY, COLON, DIAGNOSTIC Routine 07/08/2024 11:13 AM CDT from Last 3 Months or Most Recently Relevant to Health Maintenance Results * ENDOSCOPY, COLON, DIAGNOSTIC (07/08/2024 11:13 AM CDT) Report Endoscopy POC __ _ Patient Name: Aramis Agrawal ? Procedure Date: 07/08/2024 11:13 AM ? Date of : 1960 ?Admit Type: Inpatient Age: 64 ? Gender: Male Attending MD: Carlotta Sims MD, [id number] __ _ Procedure: ? Colonoscopy Indications: ? Gastrointestinal bleeding from polypectomy sites Providers: ? Carlotta iSms MD (Doctor) Referring MD: ?Zaire Shah MD (Referring MD) Medicines: ? Monitored Anesthesia Care Complications: ? No immediate complications. __ _ Estimated Blood Loss: ? Estimated blood loss: none. Procedure: ? Pre-Anesthesia Assessment: ? - Prior to the procedure, a History and Physical was ? performed, and patient medications and allergies were ? reviewed. The patient is competent. The risks and ? benefits of the procedure and the sedation options and ? risks were discussed with the patient. All questions ? were answered and informed consent was obtained. ? Patient identification and proposed procedure were ? verified by the physician, the nurse, the ? anesthesiologist and the caser up in the procedure ? room. Mental Status Examination: alert and oriented. ? Airway Examination: normal oropharyngeal airway and ? neck mobility. Respiratory Examination: clear to ? auscultation. CV Examination: normal. Prophylactic ? Antibiotics: The patient does not require prophylactic ? antibiotics. Prior Anticoagulants: The patient has ? taken Plavix (clopidogrel), last dose was 4 days prior ? to procedure. ASA Grade Assessment: III - A patient ? with severe systemic disease. After reviewing the ? risks and benefits, the patient was deemed in ? satisfactory condition to undergo the procedure. The ? anesthesia plan was to use deep sedation / analgesia. ? Immediately prior to administration of medications, ? the patient was re-assessed for adequacy to receive ? sedatives. The heart rate, respiratory rate, oxygen ? saturations, blood pressure, adequacy of pulmonary ? ventilation, and response to care were monitored ? throughout the procedure. The physical status of the ? patient was re-assessed after the procedure. ? After I obtained informed consent, the scope was ? passed under direct vision. Throughout the procedure, ? the patient's blood pressure, pulse, and oxygen ? saturations were monitored continuously. The ? Colonoscope was introduced through the anus and ? advanced to the cecum, identified by appendiceal ? orifice and ileocecal valve. The colonoscopy was ? performed without difficulty. The patient tolerated ? the procedure well. The quality of the bowel ? preparation was adequate. The ileocecal valve, ? appendiceal orifice, and rectum were photographed. ? Findings: ? The perianal and digital rectal examinations were normal. ? Colon was vigorously washed and examined without blood noted in the ? entire colon. An area of nonbleeding ulcerated mucosa with 2 adherent ? clips was noted in the cecum. No visible vessel was noted but scattered ? red spots noted. Coagulation for hemostasis using bipolar probe was ? successful. Two areas of ulcerated lumpectomy sites noted in the ? proximal ascending colon 1 with little deeper base and possible bleeding ? stigmata. Bipolar cautery applied to these areas. To close a defect ? after polypectomy, two hemostatic clips were successfully placed. There ? was no bleeding at the end of the procedure. Hepatic flexure polypectomy ? site secured with bipolar cautery as another in the transverse colon. A ? small 3-4 mm hepatic flexure polyp was obliterated with cautery as was a ? 5 mm flat sigmoid colon polyp. ? Multiple small and large-mouthed diverticula were found in the left ? colon. __ _ ? Impression: ?- Polypectomy site X 5 in the right colon (X4) and ? transverse colon (X 1) some with bleeding stigmata, ? all aggressively managed as detailed in report ? - Small/diminutive colon polyp X 2 found and ? obliterated ? - Diverticulosis in the left colon ? - No specimens collected Recommendation: ?- [facility]. ? - IV heparin trial for mechanical valve ? - Repeat colonoscopy for surveillance based on outside ? GI recommendations ? - Resume previous diet. ? Procedure Code(s): ? --- Professional --- ? 43345, Colonoscopy, flexible; with control of bleeding, any method ? --- Technical --- ? 09215, Colonoscopy, flexible; with control of bleeding, any method Diagnosis Code(s): ? --- Professional --- ? K63.3, Ulcer of intestine ? K92.2, Gastrointestinal hemorrhage, unspecified ? K57.30, Diverticulosis of large intestine without perforation or abscess ? without bleeding ? --- Technical --- ? K63.3, Ulcer of intestine ? K92.2, Gastrointestinal hemorrhage, unspecified ? K57.30, Diverticulosis of large intestine without perforation or abscess ? without bleeding CPT copyright 2020 [employer]. All rights reserved. The codes documented in this report are preliminary and upon remote medical coder review may be revised to meet current compliance requirements. Dr. Carlotta Sims MD _ Carlotta Sims MD 07/08/2024 12:39:51 PM This report has been signed electronically. Number of Addenda: 0 Note Initiated On: 07/08/2024 11:13 AM [facility] 07/08/2024 11:1 3 AM CDT Carlotta Sims MD GI PROCEDURE ORDERAB LES [place] [address] from Last 3 Months or Most Recently Relevant to Health Maintenance Advance Directives * Full Code (Latest Code Status on File) Date Activated Date Inactivated Comments 07/08/2024 9:10 PM 07/11/2024 12:01 PM * Full Code Date Activated Date Inactivated Comments 07/06/2024 4:14 AM 07/08/2024 6:34 PM
--- OUTSIDE RECORDS SUMMARY | 2024-11-12 07:02 | XMS_ITS | Clinical Summary ---
Author Organization [facility] Address [address] [place] [address] Care Team Providers Care Purse Seining Hand Name Role Phone Unavailable Primary Care Provider Unavailabl e Source Comments [facility],non-owned Affiliates and Associated Physician Practices is amultiple site organization consisting of ambulatory clinics and hospital sitesin [place], [place], [place] and [place]. This disclosure is being madepursuant to the Care Everywhere program and may not contain all information available regarding this patient. Last updated 18.[facility] Allergies Active Allergy Reactions Criticality Noted Date [...] type 07/07/2024 Gastrointestinal hemorrhage with melena 07/05/20 Family History Medical History Relation Name Comments Cancer - Colon Neg Hx Social History Tobacco Use Types Packs/Day Years [...] and heating? Not hard at all 07/08/2024 [facility] [place] of Occupat ional Health - Occupational Stress [...] place to sleep or slept in a [place] health care facility (including now)? No 07/08/2024 Sex and Gender [...] Mass Index 31.48 07/08/2024 6:43 PM CDT Plan of Treatment Health Maintenance Due Date Last Done Comments COLOGUARD (AGES 45-75) - COL ON CA SCREENING 1960 CT COLONOGRAPHY - COLON CA SCREENING 1960 FIT - COLON CA SCREENING 1960 FLEX SIG - COLON CA SCREENING 1960 MEDICARE AWV ? 12 MONTHS 1960 HEPATITIS C SCREENING 04/23/1976 DTAP/TDAP/TD VACCINES (1 - Tdap) 1977 PNEUMOCOCCAL VACCINE 50+ (1 of 1 - PCV) 2008 ZOSTER VACCINE (1 of 2) 2008 AAA SCREENING 2023 COVID-19 VACCINE (1 - 2023-2 5 season) 2024 INFLUENZA VACCINE (#1) 2024 DEPRESSION SCREENING 10/17/2024 Respiratory Syncytial Virus (RSV) Vaccine Pt: or over 60 yrs (1 - 1-dose 75+ series) 2033 COLON MONITORING 07/08/2034 07/08/2024, 07/08/2024 COLONOSCOPY - COLON CA SCREENING 07/08/2034 07/08/2024, 07/08/2024 Colorectal Cancer Screening 07/08/2034 HEPATITIS B VACCINE Aged Out No longe r eligible based on patient's age to complete this topic HIB VACCINE Aged Out No longer eligi ble based on patient's age to complete this topic HPV VACCINE Aged Out No longer eligi ble based on patient's age to complete this topic MENINGOCOCCAL (Group B) VACCINE Aged Out No longer eligible b ased on patient's age to complete this topic MENINGOCOCCAL VACCINE Aged Out No tatyana evelin eligible based on patient's age to complete this topic Procedures Procedure Name Priority Date/Time Associated Diagnosis [...] Gender: Male Attending MD: Carlotta Sims MD, [id number] __ _ Procedure: ? Colonoscopy Indications: ? Gastrointestinal bleeding from polypectomy sites Providers: ? Carlotta Sims MD (Doctor) Referring MD: ?Zaire Shah MD [...] the nurse, the ? anesthesiologist and the human capital manager in the procedure ? room. Mental Status [...] Procedure Code(s): ? --- Professional --- ? 26379, Colonoscopy, flexible; with control of bleeding, any method ? --- Technical --- ? 66211, Colonoscopy, flexible; with control of bleeding, any [...] abscess ? without bleeding CPT copyright 2020 [employer]. All rights reserved. The codes documented in this report are preliminary and upon android framework developer review may be revised to meet current compliance requirements. Dr. Carlotta Sims MD _ Carlotta Sims MD 07/08/2024 12:39:51 PM This report has been signed electronically. Number of Addenda: 0 Note Initiated On: 07/08/2024 11:13 AM [facility] 07/08/2024 11:1 3 AM CDT Carlotta Sims MD GI PROCEDURE ORDERAB LES Performing Organization Address City/State/[facility] Co de Phone Number [facility] [place] [address] from Last 3 Months or Most Recently Relevant to Health Maintenance Advance Directives * Full Code (Latest Code Status on File) Date Activated Date Inactivated Comments 07/08/2024 9:10 PM 07/11/2024 12:01 PM * Full Code Date Activated Date Inactivated Comments 07/06/2024 4:14 AM 07/08/2024 6:34 PM
--- OUTSIDE RECORDS SUMMARY | 2024-11-12 07:02 | XMS_ITS | Clinical Summary ---
Author Organization [facility] Address [address] [place] [address]. [place], [place] [address] [place] [id number] Care Team Providers Care Winder Helper Name Role Phone Jovanny Daigle MD Primary Care Provider [phone] Russell Arnold MD Unavailable [phone] Jaida Kellogg [facility]- Unavailable [phone] Allergies Active Allergy Reactions Criticality Noted Date Comments Carvedilol Other (see comment) 05/25/2024 bradycardia Medications nortriptyline 25 MG capsule Take 1 capsule (25 mg total) by mouth nightly at bedtime. Active pantoprazole 40 MG tablet Take 1 tablet (40 mg total) by mouth daily. Active allopurinol 100 MG tablet Take 2 tablets (200 mg total) by mouth 2 (two) times daily. Active coenzyme Q-10 (COENZYME Q10) 100 MG capsule Take 1 capsule (100 mg total) by mouth daily. 90 capsule 3 0 Active CALCIUM ACETATE-MAGNESI UM CARB OR Take 1 tablet by mouth daily. Active vitamin D3, cholecalciferol , 10 MCG (400 UNIT) tablet Take 1 tablet (400 Units total) by mouth daily. Active aspirin 81 MG chewable tablet Chew 1 tablet (81 mg total) by mouth daily. 30 tablet 0 Active felodipine ER 5 MG 24 hr tablet Take 2 tablets (10 mg total) by mouth daily. 2 Active nitroglycerin 0.[address] 1 tablet (0.4 mg total) under the tongue every 5 (five) minutes as needed for Chest Pain. 2 Active sildenafil 100 MG tablet Take 0.5 tablets (50 mg total) by mouth as needed for Erectile Dysfunction. 1 Active warfarin 7.5 MG tablet Take 9.5 mg by mouth daily. As directed 2 Active warfarin 1 MG tablet As directed 2 Active Potassium 99 MG tablet Take 1 tablet by mouth daily. Active rosuvastatin (CRESTOR) 5 MG tablet Take 1 tablet (5 mg total) by mouth daily. 3 Active losartan-hydroC HLOROthiazide (HYZAAR) 50-12.5 MG tablet Take 1 tablet by mouth daily. Active lisinopril 20 MG tablet Take 1 tablet (20 mg total) by mouth daily. 10/24/19 25 Discontinue d(Discontin ued by another clinician) Active Problems Problem Noted Date Diagnosed Date Greater trochanteric bursitis of right hip 06/14 S/P coronary artery stent placement 03/10/2023 S/P AVR (aortic valve replacement) 07/23/2020 S/P CABG (coronary artery bypass graft) 07/23/20 20 Postoperative atrial fibrillation ([facility]H CC) 07/23/2020 Coronary artery disease 05/29/2020 ED (erectile dysfunction) 10/22/2017 Dyspnea 08/09/2017 Fatigue 08/09/2017 History of cardioembolic cerebrovascular acciden t (CVA) 08/09/2017 Overview (08/09/2017): left occipital infarct HLD (hyperlipidemia) 08/09/2017 HTN (hypertension) 08/09/2017 PVC (premature ventricular contraction) 08/09/20 17 Bicuspid aortic valve GERD (gastroesophageal reflux disease) Encounters Date Type Department Care Team Description 10/24/2024 1:00 PM POWDER COMPOUNDER Office Visit [facility] [place] [address] Jaida Kellogg ANP- Follow Up (CAD) 10/24/2024 Travel 10/02/2024 Telephone [facility] [address] [place] [address] Russell Arnodl MD Appointment Request from Last 3 Months Family History Medical History Relation Comments Arthritis Mother Diabetes Mother Heart Disease Mother Relation Status Comments Brother Alive cad/stents Father Mother Alive Sister cad/stent Social History Tobacco Use Types Packs/Day Years Used Date Smoking Tobacco: Former Cigarettes Smokeless Tobacco: Current Chew Tobacco Cessation:Ready to Q uit: Not Asked; Counseling Given: Not Answered Comments:quit approx 20 yrs Alcohol Use Standard Drinks/Week Comments No 0 (1 standard drink = 0.6 oz pur e alcohol) Sex and Gender Information Value Date Recorded Sex Assigned at Not on file Legal Sex Male 9:47 PM CDT Gender Identity Not on file Sexual Orientation Not on file Last Filed Vital Signs Vital Sign Reading Time Taken Comments Blood Pressure 140/80 10/24/2024 3:04 PM POWDER COMPOUNDER Pulse 65 10/24/2024 3:04 PM POWDER COMPOUNDER Temperature 36.3 ??C (97.3 ??F) 02/21/2023 12:46 PM C DT Respiratory Rate 12 10/24/2024 3:04 PM POWDER COMPOUNDER Oxygen Saturation 99% 10/24/2024 3:04 PM POWDER COMPOUNDER Inhaled Oxygen Concentration - - Weight 107.5 kg (237 lb) 10/24/2024 3:04 PM POWDER COMPOUNDER Height 182.9 cm (6') 10/24/2024 3:04 PM POWDER COMPOUNDER Body Mass Index 32.14 10/24/2024 3:04 PM POWDER COMPOUNDER Plan of Treatment Upcoming Encounters Date Type Department Care Team (Late st Contact Info) Description 11/26/2024 7:30 AM POWDER COMPOUNDER Appointment [facility] [place] [address] Jaida Kellogg, ANP-BC [address] [place], [place] [address] [place] [address] 11/26/2024 8:00 AM POWDER COMPOUNDER Appointment [facility] [place] [address] Jaida Kellogg, ANP-BC [address] [place] [address] 11/26/2024 8:30 AM POWDER COMPOUNDER Appointment [facility] [address] Jaida Kellogg, [address] [address] [place] [address] [address] [place] [address] 11/26/2024 10:00 AM POWDER COMPOUNDER Appointment [facility] [address] [place] [address] [place] [address] Jaida Kellogg, ANP-[address] [address] 05/22/2025 11:30 AM CDT Office Visit [facility] [place] [address] Jaida Kellogg, [address] [address] Health Maintenance Due Date Last Done Comments ASCVD Statin 1958 Pneumococcal Vaccine: 65+ Years (1 of 2 - PCV) 1964 Hepatitis C 1976 Zoster Vaccines (1 of 2) 2008 RSV Immunization or 60+ Years (1 - Risk 60-74 years 1-dose series) 2018 ASCVD LDL 05/26/2021 05/26/2020 Annual Medicare Wellness Visit 2023 COVID-19 Vaccine (1 - 2023-2 5 season) 2024 Influenza Adult (#1) 2024 DTaP, Tdap and Td Vaccines ( 2 - Td or Tdap) 09/06/2026 09/06/2016 Colorectal Cancer Screening Colonoscopy (10 Years) 07/05/2034 07/05/2024 AAA SCREENING Completed 07/06/2024, 07/06/2024 Meningococcal B Vaccine Aged Out No l onger eligible based on patient's age to complete this topic Meningococcal Vaccine Aged Out No tatyana evelin eligible based on patient's age to complete this topic RSV Immunizations Under 20 Months Aged Out No longer eligible b ased on patient's age to complete this topic Medical Devices Implanted Type Area Assignment Agent Device Identifier Shelf Expiration Date Model / Serial / Lot Cv Xience 4.0mm X 18mm Dav Mid Rca-02/21/2023 Implanted:02/21 by Jarrett Tirado MD (Quantity not on file) Stent Coronary RCA ALE[employer] 03/08/2024 [id number] Valve Aortic On-X - [id number] Implanted:Qty: 1 on 05/29/2020 by Valentin Motta MD at [facility] N/A: Heart [employer] 02/13/2026 ONXAE- / [id number] / Description:Inventory notifi - Candace Procedures Procedure Name Priority Date/Time Associated Diagnosis Comments COLONOSCOPY GENERIC (SCAN ORDER) Routine 07/05/2024 12:00 AM CDT LIPID PANEL Routine 05/26/2020 11:06 AM CDT from Last 3 Months or Most Recently Relevant to Health Maintenance Results * COLONOSCOPY (07/05/2024 12:00 AM CDT) 07/05/2024 us Doc Pccl Scanned SCANNING Final Result [facility] ONBASE * (ABNORMAL) LIPID PANEL (05/26/2020 11:06 AM CDT) CHOLESTEROL 147 MG/DL 05/26/2020 12:[address] [facility] Comment:DESIRABLE: <200 TRIGLYCERIDES 232 MG/DL 05/26/2020 12:[address] [facility] Comment:200-499 HIGH HDL 37(L) >39 MG/DL 05/26/2020 12:[address] [facility] LDL (CALCULATED) 64 MG/DL 05/26/20 12:[address] [facility] Comment:<100 OPTIMAL VLDL CALCULATION 46 MG/DL 05/26/20 12:[address] [facility] Comment:REFERENCE RANGE NOT ESTABLISHED CHOL/HDL RATIO 4.0 05/26/2020 12:[address] [facility] Comment:REFERENCE RANGE NOT ESTABLISHED LDL/HDL 1.7 05/26/2020 12:[address] [facility] Comment:REFERENCE RANGE NOT ESTABLISHED NON HDL CHOLESTEROL 110 MG/DL 05/26/2020 12:[address] [facility] Comment:REFERENCE RANGE NOT ESTABLISHED 05/26/2020 11:0 6 AM CDT Valentin Motta MD LABORATORY Final Resul t [facility] [address] [place] [address], [id number] from Last 3 Months or Most Recently Relevant to Health Maintenance Insurance MEDICARE [facility] Advance Directives * Full Code (Latest Code Status on File) Date Activated Date Inactivated Comments 02/21/2023 3:49 PM 02/21/2023 8:06 PM * Full Code Date Activated Date Inactivated Comments 05/29/2020 12:07 PM 06/03/2020 6:52 PM * Full Code Date Activated Date Inactivated Comments 05/07/2020 10:33 AM 05/07/2020 3:49 PM Care Teams Winder Helper Relationship Specialty Start Date End Date Jovanny Daigle MD [address] [place] [address] PCP - General INTERNAL MEDICINE 08/05/17 Russell Arnold MD [address] [place] [id number] INTERVENTIONAL CARDIOLOGY 01/25/24 Jaida Kellogg ANP- [address] [place] [id number] Nurse Practitioner NURSE PRACTITIONER ADULT HEALTH 01/25/24
--- OUTSIDE RECORDS SUMMARY | 2024-11-12 07:02 | XMS_ITS | Patient Health Summary ---
Author Organization [facility] [place] Address [address] [place] [address] Care Team Providers Care Returns Clerk Name Role Phone Unavailable Primary Care Provider Unavailabl e Note from [facility],non-owned Affiliates and Associated Physician Practices is amultiple site organization consisting of ambulatory clinics and hospital sitesin [place], [place], [place] and [place]. This disclosure is being madepursuant to the Care Everywhere program and may not contain all information available regarding this patient. Last updated 18.[facility] [place] Allergies * Hmg-Coa-R Inhibitors(GI Discomfort) Medications * Be aware that medications may not be up to date on this document. Alwaysverify current medications with the patient. * warfarin (Coumadin) 7.5 MG tablet(Started 07/11/2024) Take 1 (one) tablet by mouth once daily for 30 days * warfarin (Coumadin) 1 MG tablet(Started 07/11/2024) Take 1 (one) tablet by mouth once daily for 30 days * rosuvastatin (Crestor) 5 MG tablet(Started 07/11/2024) Take 1 (one) tablet by mouth once daily * losartan - hydroCHLOROthiazide (Hyzaar) 50-12.5 MG tablet(Started 07/11/2024) Take 1 (one) tablet by mouth once daily * felodipine CR 24hr (Plendil) 5 MG tablet(Started 07/11/2024) Take 1 (one) tablet by mouth 2 times daily * allopurinol (Zyloprim) 100 MG tablet(Started 07/11/2024) Take 2 (two) tablets by mouth 2 times daily * pantoprazole EC (Protonix) 40 MG tablet(Started 07/11/2024) Take 1 (one) tablet by mouth once daily Active Problems Problem Noted Date Diagnosed Date [...] at all 07/08/2024 [facility] Occupat ional Health - Occupational Stress [...] place to sleep or slept in a fdc (including now)? No 07/08/2024 Sex and Gender [...] Mass Index 31.48 07/08/2024 6:43 PM CDT Procedures * CARDIAC RHYTHM STRIP ORDER(Performed 07/23/2024) * RENAL FUNCTION PANEL(Performed 07/11/2024) * CBC W/O DIFFERENTIAL(Performed 07/11/2024) * PT-INR [facility](Performed 07/11/2024) * MAGNESIUM BLOOD(Performed 07/11/2024) * CBC W/O DIFFERENTIAL(Performed 07/10/2024) * CBC W/O DIFFERENTIAL(Performed 07/10/2024) * PTT [facility](Performed 07/10/2024) * PTT [facility](Performed 07/10/2024) * CBC W/O DIFFERENTIAL(Performed 07/10/2024) * PT-INR [facility](Performed 07/10/2024) * PHOSPHORUS BLOOD(Performed 07/10/2024) * MAGNESIUM BLOOD(Performed 07/10/2024) * BASIC METABOLIC PANEL (CALCIUM TOTAL)(Performed 07/10/2024) * PTT [facility](Performed 07/09/2024) * CBC W/O DIFFERENTIAL(Performed 07/09/2024) * PTT [facility](Performed 07/09/2024) * BLOOD TYPE VERIFICATION(Performed 07/09/2024) * PTT [facility](Performed 07/09/2024) * CBC W AUTO DIFFERENTIAL(Performed 07/09/2024) * PT-INR [facility](Performed 07/09/2024) * XR ABDOMEN KUB(Performed 07/09/2024) Performed for Intestinal perforation (HCC) * TYPE + SCREEN PANEL(Performed 07/09/2024) * PHOSPHORUS BLOOD(Performed 07/09/2024) * MAGNESIUM BLOOD(Performed 07/09/2024) * BASIC METABOLIC PANEL (CALCIUM TOTAL)(Performed 07/09/2024) * PT-INR [facility](Performed 07/08/2024) * COMPREHENSIVE METABOLIC PANEL(Performed 07/08/2024) * CBC W AUTO DIFFERENTIAL(Performed 07/08/2024) * VA COLONOSCOPY, DIAGNOSTIC(Performed 07/08/2024) * HGB HCT PANEL(Performed 07/08/2024) * ENDOSCOPY, COLON, DIAGNOSTIC(Performed 07/08/2024) * RENAL FUNCTION PANEL(Performed 07/08/2024) * PT-INR(Performed 07/08/2024) * HGB HCT PANEL(Performed 07/07/2024) * HGB HCT PANEL(Performed 07/07/2024) * CBC W/O DIFFERENTIAL(Performed 07/07/2024) * BASIC METABOLIC PANEL (CALCIUM TOTAL)(Performed 07/07/2024) * HGB HCT PANEL(Performed 07/06/2024) * HGB HCT PANEL(Performed 07/06/2024) * CT ANGIO ABD PELVIS GI BLEED(Performed 07/06/2024) Performed for Gastrointestinal hemorrhage with melena * HGB HCT PANEL(Performed 07/06/2024) * HGB HCT PANEL(Performed 07/06/2024) * PT-INR(Performed 07/06/2024) * COMPREHENSIVE METABOLIC PANEL(Performed 07/06/2024) * CBC W AUTO DIFFERENTIAL(Performed 07/06/2024) Results * CARDIAC RHYTHM STRIP ORDER (07/23/2024 5:22 PM CDT) Narrative 07/23/2024 5:22 PM CDT Ordered by an unspecified provider. Scanned Document CARDIAC SERVICES ORD ERABLES * PT-INR [facility] (07/11/2024 3:17 AM CDT) Only the most recent of4 resultswithin the time period is included. Pathologist [facility] PT 13.2 12.1 - 14.8 Seconds 07/11/2024 4:16 AM CDT [facility] INR 1.0 See Comment 07/11/2024 4:16 AM [facility] Comment:The suggested therap eutic range for standard coumadin (warfarin) therapy is an INR of 2.0-3.0. For high-risk patients (Mechanical Mitral Valve Prosthesis, etc.), the suggested prophylactic therapeutic range is an INR of 2.5-3.5. Blood BLOOD SPECIMEN / Unknown Lab Venipuncture / Unknown 07/11/2024 3:17 AM CDT 07/11/2024 3:48 AM CDT Jag Gunderson MD LAB - COAGULATION OR DERABLES [facility] [address] [place] [address], [facility] [phone] * (ABNORMAL) CBC W/O DIFFERENTIAL (07/11/2024 3:17 AM CDT) Only the most recent of6 resultswithin the time period is included. Pathologist [facility] WBC 5.2 4.0 - 10.7 x10E9/L 07/11/2024 3:50 AM [facility] RBC Count 3.09(L) 4.30 - 5.80 x10E12/L 07/11/2024 3:50 AM [facility] Hemoglobin 9.4(L) 13.3 - 17.5 g/dL 07/11/2024 3:50 AM [facility] Hematocrit 27.9(L) 38.7 - 51.1 % 07/11/2024 3:50 AM [facility] MCV 90.3 80.0 - 98.0 fL 07/11/2024 3:50 AM [facility] MCH 30.4 26.7 - 33.6 pg 07/11/2024 3:50 AM [facility] MCHC 33.7 31.7 - 36.3 g/dL 07/11/2024 3:50 AM [facility] RDW-CV 14.8 11.3 - 14.8 % 07/11/2024 3:50 AM [facility] Platelet Count 207 150 - 420 x10E9/L 07/11/2024 3:50 AM [facility] MPV 9.4 7.8 - 11.4 fL 07/11/2024 3:50 AM [facility] Blood BLOOD SPECIMEN / Unknown Lab Venipuncture / Unknown 07/11/2024 3:17 AM CDT 07/11/2024 3:45 AM CDT Helen Burnette MD LAB - HEMATOLOGY ORD ERABLES [facility] [address] [place] [phone], [facility] [phone] * (ABNORMAL) RENAL FUNCTION PANEL (07/11/2024 3:17 AM CDT) Only the most recent of2 resultswithin the time period is included. BUN 10 7 - 26 mg/dL 07/11/2024 4:12 AM [facility] Creatinine 1.30(H) 0.71 - 1.16 mg/dL 07/11/2024 4:12 AM [facility] Sodium 141 136 - 145 mmol/L 07/11/2024 4:12 AM [facility] Potassium 3.2(L) 3.5 - 4.5 mmol/L 07/11/2024 4:12 AM [facility] Chloride 111(H) 98 - 107 mmol/L 07/11/2024 4:12 AM [facility] CO2 24 22 - 29 mmol/L 07/11/2024 4:12 AM [facility] Glucose 108 70 - 115 mg/dL 07/11/2024 4:12 AM [facility] Albumin 3.4 3.4 - 5.0 g/dL 07/11/2024 4:12 AM [facility] Calcium 8.8 8.4 - 10.2 mg/dL 07/11/2024 4:12 AM [facility] Phosphorus 3.2 2.8 - 5.1 mg/dL 07/11/2024 4:12 AM [facility] Anion Gap 6 6 - 16 07/11/2024 4:12 AM [facility] BUN/Creatinine Ratio 8 7 - 23 07/11/2024 4:12 AM [facility] Osmolality Calculated 292 275 - 295 mOsm/kg 07/11/2024 4:12 AM [facility] eGFR by CKD-EPI 61(L) >=90 mL/min/1.7 3 m2 07/11/2024 4:12 AM [facility] Blood BLOOD SPECIMEN / Unknown Lab Venipuncture / Unknown 07/11/2024 3:17 AM CDT 07/11/2024 3:46 AM CDT Mayi Andrade MD LAB - CHEMISTRY ORDE [facility] [address] [address], [place] [phone] * MAGNESIUM BLOOD (07/11/2024 3:17 AM CDT) Only the most recent of3 resultswithin the time period is included. Magnesium 2.1 1.6 - 2.6 mg/dL 07/11/2024 4:12 AM T [facility] Blood BLOOD SPECIMEN / Unknown Lab Venipuncture / Unknown 07/11/2024 3:17 AM CDT 07/11/2024 3:46 AM CDT Poncho Munoz DO LAB - CHEMISTRY ORDE [facility] [address] [address], [place] [phone] * PTT [facility] (07/10/2024 12:27 PM CDT) Only the most recent of5 resultswithin the time period is included. Pathologist [facility] APTT 34.4 23.0 - 38.4 Seconds 07/10/2024 1:07 PM [facility] Comment:Suggested therapeuti c range for full dose I.V. unfractionated heparin therapy for venous thromboembolism is 71 to 109 seconds. Blood BLOOD SPECIMEN / Unknown Lab Venipuncture / Unknown 07/10/2024 12:27 PM CDT 07/10/2024 12:33 PM CDT Helen Burnette MD LAB - COAGULATION OR DERABLES [facility] [address] [place] [address], [facility] [phone] * (ABNORMAL) BASIC METABOLIC PANEL (CALCIUM TOTAL) (07/10/2024 4:00 AM CDT) Only the most recent of3 resultswithin the time period is included. Pathologist [facility] BUN 6(L) 7 - 26 mg/dL 07/10/2024 6:22 AM [facility] Creatinine 1.27(H) 0.71 - 1.16 mg/dL 07/10/2024 6:22 AM [facility] Sodium 141 136 - 145 mmol/L 07/10/2024 6:22 AM [facility] Potassium 3.5 3.5 - 4.5 mmol/L 07/10/2024 6:22 AM [facility] Chloride 113(H) 98 - 107 mmol/L 07/10/2024 6:22 AM [facility] CO2 21(L) 22 - 29 mmol/L 07/10/2024 6:22 AM [facility] Glucose 91 70 - 115 mg/dL 07/10/2024 6:22 AM [facility] Calcium 8.6 8.4 - 10.2 mg/dL 07/10/2024 6:22 AM [facility] Anion Gap 7 6 - 16 07/10/2024 6:22 AM [facility] BUN/Creatinine Ratio 5(L) 7 - 23 07/10/2024 6:22 AM [facility] Osmolality Calculated 289 275 - 295 mOsm/kg 07/10/2024 6:22 AM CDT [facility] eGFR by CKD-EPI 62(L) >=90 mL/min/1.7 3 m2 07/10/2024 6:22 AM CDT [facility] Blood BLOOD SPECIMEN / Unknown Lab Venipuncture / Unknown 07/10/2024 4:00 AM CDT 07/10/2024 5:53 AM CDT Poncho Munoz DO LAB - CHEMISTRY [facility] SOL[facility] [address] [address], [place] [phone] * PHOSPHORUS BLOOD (07/10/2024 4:00 AM CDT) Only the most recent of2 resultswithin the time period is included. Phosphorus 2.9 2.8 - 5.1 mg/dL 07/10/2024 6:22 AM CDT [facility] Blood BLOOD SPECIMEN / Unknown Lab Venipuncture / Unknown 07/10/2024 4:00 AM CDT 07/10/2024 5:53 AM CDT Poncho Munoz DO LAB - CHEMISTRY [facility] [address] [address], [place] [phone] * BLOOD TYPE VERIFICATION (07/09/2024 11:19 AM CDT) ABO Rh O NEG 07/09/2024 12:07 PM CDT [facility] Blood Bank BLOOD SPECIMEN / Unknown Venipuncture / Unknown 07/09/2024 11:19 AM CDT 07/09/2024 11:30 AM CDT Jag Gunderson MD LAB - BLOOD BANK ORD ERAJORDYN [facility] [address] [place] [address], [place] [phone] * (ABNORMAL) CBC W AUTO DIFFERENTIAL (07/09/2024 11:19 AM [facility]) Only the most recent of3 resultswithin the time period is included. WBC 5.9 4.0 - 10.7 x10E9/L 07/09/2024 12:00 PM [facility] RBC Count 3.28(L) 4.30 - 5.80 x10E12/L 07/09/2024 12:00 PM [facility] Hemoglobin 10.1(L) 13.3 - 17.5 g/dL 07/09/2024 12:00 PM [facility] Hematocrit 29.6(L) 38.7 - 51.1 % 07/09/2024 12:00 PM [facility] MCV 90.2 80.0 - 98.0 fL 07/09/2024 12:00 PM [facility] MCH 30.8 26.7 - 33.6 pg 07/09/2024 12:00 PM [facility] MCHC 34.1 31.7 - 36.3 g/dL 07/09/2024 12:00 PM [facility] RDW-CV 13.8 11.3 - 14.8 % 07/09/2024 12:00 PM [facility] Platelet Count 188 150 - 420 x10E9/L 07/09/2024 12:00 PM [facility] MPV 9.5 7.8 - 11.4 fL 07/09/2024 12:00 PM [facility] Neutrophil % 77.6(H) 41.0 - 74.0 % 07/09/2024 12:00 PM [facility] Lymphocyte % 13.0(L) 17.0 - 47.0 % 07/09/2024 12:00 PM [facility] Monocyte % 4.4 3.0 - 11.0 % 07/09/2024 12:00 PM [facility] Eosinophil % 3.5 0.0 - 7.0 % 07/09/2024 12:00 PM [facility] Basophil % 1.2 0.0 - 1.6 % 07/09/2024 12:00 PM CDT [facility] Immature Granulocytes % 0.3 0.0 - 1.0 % 07/09/2024 12:00 PM CDT [facility] Neutrophil Absolute 4.59 1.60 - 7.50 x10E9/L 07/09/2024 12:00 PM CDT [facility] Lymphocyte Absolute 0.77(L) 1.00 - 4.40 x10E9/L 07/09/2024 12:00 PM CDT [facility] Monocyte Absolute 0.26 0.15 - 1.00 x10E9/L 07/09/2024 12:00 PM CDT [facility] Eosinophil Absolute 0.21 0.00 - 0.60 x10E9/L 07/09/2024 12:00 PM T [facility] Basophil Absolute 0.07 0.00 - 0.13 x10E9/L 07/09/2024 12:00 PM T [facility] Blood BLOOD SPECIMEN / Unknown Venipuncture / Unknown 07/09/2024 11:19 AM CDT 07/09/2024 11:40 AM CDT Jag Gunderson MD LAB - HEMATOLOGY ORD ERABLES [facility] [address] [place] [address], [facility] [phone] * XR Abdomen Kub (07/09/2024 8:28 AM CDT) Anatomical Region Laterality Modality Abdomen Radiographic Ysabel ging 07/09/2024 11:5 2 AM CDT Impressions 07/10/2024 11:40 PM CDT IMPRESSION: No evidence of pneumoperitoneum. Nonobstructive bowel gas pattern. Report dictated by Brett Jain MD (professor of radiology). I, Je Tapia MD have personally reviewed and interpreted this examination/study. > Interpreting Provider: Je Tapia MD on 07/10/2024 11:40 PM Narrative 07/10/2024 11:40 PM CDT PROCEDURE: ??XR ABDOMEN KUB, DATE/TIME OF EXAM: ??07/09/2024 8:28 AM, LOCATION [facility] INDICATION: K63.1: Intestinal perforation (HCC) ADDITIONAL CLINICAL INFORMATION: Ordering Provider Reason For Exam: ??upright KUB for rule out perforation COMPARISON: None. FINDINGS: *Partially visualized median sternotomy wires and mediastinal surgical clips. *Surgical clips within the right upper abdomen suggestive of cholecystectomy. *Several surgical clips projecting over the right lateral mid abdomen. No dilated loops of large or small bowel. No free air under the bilateral hemidiaphragms on the given upright views to suggest pneumoperitoneum. Multiple calcific densities within the left upper quadrant compatible with splenic granulomas. The visualized lung bases are clear. Procedure Note Je Tapia MD - 07/10/2024 PROCEDURE: XR ABDOMEN KUB, DATE/TIME OF EXAM: 07/09/2024 8:28 AM,LOCATION [facility] INDICATION: K63.1: Intestinal perforation (HCC) ADDITIONAL CLINICAL INFORMATION: Ordering Provider Reason For Exam: upright KUB for rule out perforation COMPARISON: None. FINDINGS: *Partially visualized median sternotomy wires and mediastinal surgical clips. *Surgical clips within the right upper abdomen suggestive of cholecystectomy. *Several surgical clips projecting over the right lateral mid abdomen. No dilated loops of large or small bowel. No free air under thebilateral hemidiaphragms on the given upright views to suggest pneumoperitoneum. Multiple calcific densities within the left upper quadrant compatiblewith splenic granulomas. The visualized lung bases are clear. IMPRESSION: No evidence of pneumoperitoneum. Nonobstructive bowel gas pattern. Report dictated by Brett Jain MD (professor of radiology). I, Je Tapia MD have personally reviewed and interpreted this examination/study. > Interpreting Provider: Je Tapia MD on 07/10/2024 11:40 PM Jag Gunderson MD DIAGNOSTIC IMAGING O RDERABLES * TYPE + SCREEN PANEL (07/09/2024 5:38 AM CDT) Antibody Screen NEG 7:21 AM CDT [facility] ABO Rh O NEG 07/09/2024 7:21 AM CDT [facility] Blood Bank BLOOD SPECIMEN / Unknown Lab Venipuncture / Unknown 07/09/2024 5:38 AM CDT 07/09/2024 6:15 AM CDT Poncho Richardson Alexander BAUTISTA LAB - BLOOD BANK ORD ERABLES [facility] [address] [place] [address], [facility] [phone] * (ABNORMAL) COMPREHENSIVE METABOLIC PANEL (07/08/2024 10:08 PM CDT) Only the most recent of2 resultswithin the time period is included. BUN 8 7 - 26 mg/dL 07/08/2024 10:49 PM [facility] Creatinine 1.07 0.71 - 1.16 mg/dL 07/08/2024 10:49 PM [facility] Sodium 142 136 - 145 mmol/L 07/08/2024 10:49 PM [facility] Potassium 3.2(L) 3.5 - 4.5 mmol/L 07/08/2024 10:49 PM [facility] Chloride 113(H) 98 - 107 mmol/L 07/08/2024 10:49 PM [facility] CO2 23 22 - 29 mmol/L 07/08/2024 10:49 PM [facility] Glucose 97 70 - 115 mg/dL 07/08/2024 10:49 PM [facility] Calcium 8.8 8.4 - 10.2 mg/dL 07/08/2024 10:49 PM [facility] Protein Total 5.7(L) 6.0 - 8.3 g/dL 07/08/2024 10:49 PM [facility] Albumin 3.5 3.4 - 5.0 g/dL 07/08/2024 10:49 PM [facility] Bilirubin Total 0.4 0.2 - 1.2 mg/dL 07/08/2024 10:49 PM [facility] Alkaline Phosphatase 67 40 - 150 U/L 07/08/2024 10:49 PM [facility] ALT 25 5 - 55 U/L 07/08/2024 10:49 PM [facility] AST 24 5 - 34 U/L 07/08/2024 10:49 PM CDT [facility] Anion Gap 6 6 - 16 07/08/2024 10:49 PM T [facility] BUN/Creatinine Ratio 7 7 - 23 07/08/2024 10:49 PM T [facility] Osmolality Calculated 292 275 - 295 mOsm/kg 07/08/2024 10:49 PM T [facility] Albumin/Globulin Ratio 1.6 1.1 - 2.3 07/08/2024 10:49 PM T [facility] eGFR by CKD-EPI 77(L) >=90 mL/min/1.7 3 m2 07/08/2024 10:49 PM T [facility] Blood BLOOD SPECIMEN / Unknown Lab Venipuncture / Unknown 07/08/2024 10:08 PM CDT 07/08/2024 10:22 PM CDT Poncho Munoz DO LAB - CHEMISTRY RUDY SOLANO [facility] [address] [place] [address], [facility] [phone] * (ABNORMAL) HGB HCT PANEL (07/08/2024 11:22 AM CDT) Only the most recent of7 resultswithin the time period is included. [facility] Hemoglobin 9.5(L) 13.3 - 17.5 g/dL 07/08/2024 11:31 AM CDT [facility] Hematocrit 28.2(L) 38.7 - 51.1 % 07/08/2024 11:31 AM CDT [facility] Blood BLOOD SPECIMEN / Unknown Venipuncture / Unknown 07/08/2024 11:22 AM CDT 07/08/2024 11:26 AM CDT Carlotta Sims MD LAB - HEMATOLOGY ORD ERABLES [facility] [address] [place] [address] * ENDOSCOPY, COLON, DIAGNOSTIC (07/08/2024 11:13 AM CDT) Report Endoscopy POC __ _ Patient Name: Aramis Agrawal ? Procedure Date: 07/08/2024 11:13 AM ? Date of : 1960 ?Admit Type: Inpatient Age: 64 ? Gender: Male Attending MD: Carlotta Sims MD, [id number] __ _ Procedure: ? Colonoscopy Indications: ? [...] the nurse, the ? anesthesiologist and the technician plant and maintenance in the procedure ? room. Mental Status [...] Procedure Code(s): ? --- Professional --- ? 79579, Colonoscopy, flexible; with control of bleeding, any method ? --- Technical --- ? 81448, Colonoscopy, flexible; with control of bleeding, any [...] abscess ? without bleeding CPT copyright 2020 [employer]. All rights reserved. The codes documented in this report are preliminary and upon neonatal intensive care nurse review may be revised to meet current compliance requirements. Dr. Carlotta Sims MD _ Carlotta Sims MD 07/08/2024 12:39:51 PM This report has been signed electronically. Number of Addenda: 0 Note Initiated On: 07/08/2024 11:13 AM [facility] ENDOSCOPY 07/08/2024 11:1 3 AM CDT Carlotta Sims MD GI PROCEDURE ORDERAB LES Performing Organization Address [facility] Co de Phone Number [place] [phone] * PT-INR (07/08/2024 3:30 AM CDT) Only the most recent of2 resultswithin the time period is included. PT 14.2 12.1 - 14.8 sec 07/08/2024 3:52 AM CDT [facility] INR 1.1 0.9 - 1.1 07/08/2024 3:52 AM CDT [facility] Blood BLOOD SPECIMEN / Unknown Venipuncture / Unknown 07/08/2024 3:30 AM CDT 07/08/2024 3:39 AM CDT Narrative [facility] - 07/08/2024 3:52 AM CDT Conventional Warfarin Anticoagulant Therapy: INR Reference Range: ??2.0-3.0 Intensive Warfarin Anticoagulant Therapy: INR Reference Range: ? 2.5-3.5 Kurtis Jaramillo MD LAB - COAGULATION OR DERABLES Performing Organization Address [facility] Co de Phone Number [facility] [address] [place] [address] * CT ANGIO ABD PELVIS GI BLEED (07/06/2024 2:41 PM CDT) Anatomical Region Laterality Modality Abdomen, Pelvis Computed Tomogra phy 07/06/2024 3:20 PM CDT Addenda Addendum by Willie Wolfe DO on 07/06/2024 4:06 PM CDT I discussed this case with Dr. Timbo Alcantar at 1557 hours. Voice recognition error in the clinical information section which should read: Melena Additional history is provided. Patient was transferred from an outside hospital for free air status post colonoscopy for a polypectomy complicated by excessive postprocedural hemorrhage. On further evaluation, there is a small volume of free air within the right abdomen adjacent to and caudal to the liver and within the right paracolic gutter adjacent to the cecum and ascending colon. This is consistent with a perforation. There may be a small amount of air or pneumatosis along the anterior wall of the cecum which may correspond with the site of perforation. There is no wall thickening however. No mesenteric or portal venous gas is identified. > Interpreting Provider: Willie Wolfe, on 07/06/2024 4:03 PM Impressions 07/06/2024 3:34 PM CDT IMPRESSION: 1. No evidence of active GI hemorrhage. 2. Aortic atherosclerosis with mild celiac and severe SMA ostial stenosis. 3. Uncomplicated colonic diverticulosis. 4. Hepatic steatosis. 5. Left renal cyst. 6. Prostatomegaly with thick-walled urinary bladder. > Interpreting Provider: Willie Yaneth, DO on 07/06/2024 3:34 PM Narrative 07/06/2024 3:34 PM CDT PROCEDURE: ??CT ANGIO ABD PELVIS GI BLEED DATE/TIME OF EXAM: ??07/06/2024 3:12 PM CLINICAL INFORMATION: Melanoma. COMPARISON: None. TECHNIQUE: CT of the abdomen and pelvis was performed utilizing standard GI hemorrhage protocol. 3D reconstructions were performed on an independent workstation. CT dose reduction technique was used, including Automated Exposure Control. IV CONTRAST: IOPAMIDOL 76 % IV SOLN:80 mL FINDINGS: Lung bases are clear. Blood pool is less dense than ventricular myocardium, a radiographic sign of anemia. Hepatic steatosis. Scattered calcified granulomas within the liver. Cholecystectomy. Biliary tree, pancreas, spleen and adrenal glands are unremarkable. There is no nephrolithiasis or hydronephrosis. Some retained contrast within the renal cortex and collecting systems on the precontrast study suggests previous administration of contrast. There is no hydronephrosis or perinephric fluid. Simple appearing exophytic cyst left upper pole measures 2.2 cm. There is no delayed or striated nephrogram. Urinary bladder is thick-walled. This may be due to long-standing bladder outlet obstruction. Prostate and seminal vesicles are slightly enlarged. Correlate with the same clinical exam. There is no intraluminal contrast extravasation within the bowel to indicate active GI hemorrhage at this time. There are scattered colonic diverticula but no active inflammation. Surgical clips are observed at the ileocecal valve but no bleeding is present at this location. There is no bowel obstruction. The cecum, terminal ileum and appendix are normal. There is no ascites or free air. There is diffuse atherosclerosis of aorta. There is mild celiac and severe SMA stenosis due to calcified plaque at the ostia. Occlusion noted however. The YSABEL is patent. There is no retroperitoneal hemorrhage or lymphadenopathy. No mesenteric lymphadenopathy. Moderate to severe thoracolumbar spondylosis likely in conjunction with a developmentally slender spinal canal. Multilevel laminectomy changes are present. Procedure Note Willie Wolfe DO - 07/06/2024 PROCEDURE: CT ANGIO ABD PELVIS GI BLEED DATE/TIME OF EXAM: 07/06/2024 3:12 PM CLINICAL INFORMATION: Melanoma. COMPARISON: None. TECHNIQUE: CT of the abdomen and pelvis was performed utilizing standard GIhemorrhage protocol. 3D reconstructions were performed on an independentworkstation. CT dose reduction technique was used, including Automated ExposureControl. IV CONTRAST: IOPAMIDOL 76 % IV SOLN:80 mL FINDINGS: Lung bases are clear. Blood pool is less dense than ventricularmyocardium, a radiographic sign of anemia. Hepatic steatosis. Scattered calcified granulomas within the liver. Cholecystectomy. Biliary tree, pancreas, spleen and adrenal glands are unremarkable. There is no nephrolithiasis or hydronephrosis. Some retained contrast within the renal cortex and collecting systems on the precontrast study suggests previous administration of contrast. There is no hydronephrosisor perinephric fluid. Simple appearing exophytic cyst left upper polemeasures 2.2 cm. There is no delayed or striated nephrogram. Urinary bladder is thick-walled. This may be due to long-standing bladder outletobstruction. Prostate and seminal vesicles are slightly enlarged. Correlate with the same clinical exam. There is no intraluminal contrast extravasation within the bowel to indicate active GI hemorrhage at this time. There are scattered colonic diverticula but no active inflammation. Surgical clips are observed atthe ileocecal valve but no bleeding is present at this location. There is no bowel obstruction. The cecum, terminal ileum and appendixare normal. There is no ascites or free air. There is diffuseatherosclerosis of aorta. There is mild celiac and severe SMA stenosis due to calcified plaque at the ostia. Occlusion noted however. The YSABEL is patent. Thereis no retroperitoneal hemorrhage or lymphadenopathy. No mesenteric lymphadenopathy. Moderate to severe thoracolumbar spondylosis likely in conjunction witha developmentally slender spinal canal. Multilevel laminectomy changes are present. IMPRESSION: 1. No evidence of active GI hemorrhage. 2. Aortic atherosclerosis with mild celiac and severe SMA ostialstenosis. 3. Uncomplicated colonic diverticulosis. 4. Hepatic steatosis. 5. Left renal cyst. 6. Prostatomegaly with thick-walled urinary bladder. > Interpreting Provider: Willie Wolfe DO on 07/06/2024 3:34 PM Timbo Garcia MD CT ORDERABLES
--- OUTSIDE RECORDS SUMMARY | 2024-11-12 07:02 | XMS_ITS | Encounter Summary ---
Author Organization [facility] Address [address] [place] [address]. [place], [place] [id number] [place] [address] Care Team Providers Care Vacuum Form Operator Name Role Phone Jovanny Daigle MD Primary Care Provider [phone] Isac Peoples MD Unavailable Unavailabl e Giana Herrera APRN, WALL MAN-C Unavailable Russell Arnold MD Unavailable [phone] Jaida Kellogg ANP-BC Unavailable [phone] Encounter Details Date Type Department Care Team (Late st Contact Info) Description 05/21/[address] [facility] [address] [place] [address] Valentin Motta MD [address] [place] [address] Social History Tobacco Use Types Packs/Day Years Used Date Smoking Tobacco: Former Cigarettes Smokeless Tobacco: Current Chew Alcohol Use Standard Drinks/Week Comments No 0 (1 standard drink = 0.6 oz pur e alcohol) Sex and Gender Information Value Date Recorded Sex Assigned at Not on file Legal Sex Male 9:47 PM CDT Gender Identity Not on file Sexual Orientation Not on file COVID-19 Exposure Response Date Recorded In the last month, have you been in contact with someone who was confirmed or suspected to have Coronavirus / COVID-19? No / Unsure 05/16/2020 12:04 PM CDT documented as of this encounter Plan of Treatment Upcoming Encounters Date Type Department Care Team (Late st Contact Info) Description 11/26/2024 7:30 AM GALLERY DIRECTOR Appointment [facility] [place] [address] Jaida Kellogg, ORAL-BC [address] [place] [address] 11/26/2024 8:00 AM GALLERY DIRECTOR Appointment [facility] [place] [address] Jaida Kellogg, ANP-BC [address] [place] [address] 11/26/2024 8:30 AM GALLERY DIRECTOR Appointment [facility] [place] [address] Jaida Kellogg ANP-BC [address] [place] [address] [place] [address] [address] [place] [address] 11/26/2024 10:00 AM GALLERY DIRECTOR Appointment [facility] [place] [address] Jaida Kellogg, ORAL-[address] [address] 05/22/2025 11:30 AM CDT [facility] [place] [address] Jaida Kellogg ANP-[address] [address] documented as of this encounter Visit Diagnoses Not on filedocumented in this encounter Additional Health Concerns Infection Onset Date Last Indicated Resolved Time COVID-19 Rule Out 05/26/2020 05/26/2020 05/27/2020 10:48 PM CDT documented as of this encounter Care Teams Vacuum Form Operator Relationship Specialty Start Date End Date Jovanny Daigle MD [address] [place] [address] PCP - General INTERNAL MEDICINE 08/05/17 Isac Peoples MD [address] [place] [address] Cornelia Welder Experimental CARDIOVASCULAR DISEASE 08/05/17 01/24/24 Giana Herrera, MANAGER BILLING, WALL MAN-C [address] [place] [address] [address] [place] [phone] NURSE PRACTITIONER 09/17/21 01/24/24 Russell Arnold MD [address] [place] [id number] INTERVENTIONAL CARDIOLOGY 01/25/24 Jaida Kellogg, ORAL- [address] [place] [address] Nurse Practitioner NURSE PRACTITIONER ADULT HEALTH 01/25/24 documented as of this encounter
--- OUTSIDE RECORDS SUMMARY | 2024-11-12 07:02 | XMS_ITS | Encounter Summary ---
Author Organization [facility] Address [address] [place] [address]. [place], [place] [address] [place] [address] Care Team Providers Care Business Process Associate Name Role Phone Jovanny Daigle MD Primary Care Provider [phone] Isac Peoples MD Unavailable Unavailabl e Giana Herrera APRN, STORAGE MANAGEMENT ARCHITECT-C Unavailable Russell Arnold MD Unavailable [phone] Jaida Kellogg ANP-BC Unavailable [phone] Encounter Details Date Type Department Care Team (Late st Contact Info) Description 02/25/2023 Abstract [facility] [address] [place] [phone] Isac Peoples MD Social History Tobacco Use [...] suspected to have Coronavirus/COVID-19? No / Unsure 02/21/2023 11:43 AM CDT documented as of this encounter Functional [...] Author Status No 05/29/2020 5:13 AM CDT Suyapa Mcfarland RN Active * Because of [...] st Contact Info) Description 11/26/2024 7:30 AM TORCH BURNER Appointment [facility] [place] [address] Jaida Kellogg, ANP-BC [address] [place] [address] 11/26/2024 8:00 AM TORCH BURNER Appointment [facility] [place] [address] Jaida Kellogg, ANP-BC [address] [place] [address] 11/26/2024 8:30 AM TORCH BURNER Appointment [facility] [place] [address] Jaida Kellogg, ANP-BC [address] [place] [address] [place] [address] [address] [place] [address] 11/26/2024 10:00 AM TORCH BURNER Appointment [facility] [address] [place] [address] Jaida Kellogg, ANP- [address] [place] [address] 05/22/2025 11:30 AM CDT Office Visit [facility] [place] [phone] Jaida Kellogg, [facility] [place] [address] documented as of this encounter Procedures Procedure Name Priority Date/Time Associated Diagnosis Comments PT/INR (OUTSIDE LAB) Routine 02/25/2023 documented in this encounter Results * PT/INR (OUTSIDE LAB) (02/25/2023) PROTIME WHOLE BLOOD 14.7 INR WHOLE BLOOD 1.40 02/25/2023 Jovanny Daigle MD LAB-OUTSIDE/ABSTRACTED Final Re sult documented in this encounter Visit Diagnoses Not on filedocumented in this encounter Care Teams Business Process Associate Relationship Specialty Start Date End Date Jovanny Daigle MD [address] [place] [address] PCP - General INTERNAL MEDICINE 08/05/17 Isac Peoples MD [address] [place] [address] [employer] Industrial [employer] Teacher CARDIOVASCULAR DISEASE 08/05/17 01/24/24 Giana Herrera, 3RD MATE, STORAGE MANAGEMENT ARCHITECT-C [address] [facility] [address] [place] [address] NURSE PRACTITIONER 09/17/21 01/24/24 Russell Arnold MD [address] [place] [address] INTERVENTIONAL CARDIOLOGY 01/25/24 Jaida Kellogg, [facility]- [address] [place] [address] Nurse Practitioner NURSE PRACTITIONER ADULT HEALTH 01/25/24 documented as of this encounter
[2024-11-12 07:14] LABS: Hematocrit 43.6 % (37.0-46.0); Hemoglobin 13.8 g/dL (12.4-15.3); Mean Corpuscular HGB Conc 31.7 g/dL (32-36); Mean Corpuscular Volume 79.1 fL (78.0-102.0); Mean Platelet Volume 8.6 fl (8.7-11.0); Platelet Count Result 192 K/mm3 (150-420); Red Blood Count 5.51 M/mm3 (4.70-6.10); Red Cell Distribution Width 17.4 % (11.6-14.4); White Blood Count 4.5 K/mm3 (4.8-10.8)
[2024-11-12 07:48] LABS: Alanine Aminotransferase 56 U/L (16-63); Albumin Level 4.1 g/dL (3.4-5.0); Alkaline Phosphatase 113 U/L (46-116); Anion Gap 14 mmol/L (4-12); Aspartate Amino Transferase 38 U/L (15-37); Bilirubin,Total 0.6 mg/dL (0.00-1.00); Blood Urea Nitrogen 16 mg/dL (7-18); Calcium 8.5 mg/dL (8.5-10.1); Carbon Dioxide 28 mmol/L (21-32); Chloride 100 mmol/L (98-108); Estimated Glomerular Filt Rate 51; Glucose 121 mg/dL (70-99); Osmolality Calculated 296 mOsm/kg (285-295); Potassium 3.1 mmol/L (3.5-5.1); Sodium 142 mmol/L (136-145); Total Protein 6.7 g/dL (6.4-8.2)
== END 2024-11-12 06:58 | disposition home or self-care (01) ==
LOC: CHSLAB 06:59
PROVIDERS: PCP Internal Medicine; Visit Provider Internal Medicine
DX: R79.89 Other specified abnormal findings of blood chemistry (principal); I10 Essential (primary) hypertension
CPT/HCPCS: 36415; 80053; 85027

== ENCOUNTER 2024-12-03 06:57 | Outpatient (CLI) | payer MEDICARE, SELFPAY ==
--- OUTSIDE RECORDS SUMMARY | 2024-12-03 07:01 | XMS_ITS | Encounter Summary ---
Author Organization [facility] Address [address] [place] [address] Care Team Providers Care Rn Immunology Name Role Phone Jovanny Daigle MD Primary Care Provider [phone] Isac Peoples MD Unavailable Unavailabl e Giana Herrera APRN, TRAVELING CLERK-C Unavailable [phone] Russell Arnold MD Unavailable [phone] Jaida Kellogg ANP-BC Unavailable [phone] Encounter Details Date Type Department Care Team (Late st Contact Info) Description 02/15/2023 Hospital Orders Only [facility] Apartment Maintenance Supervisor Pre/Post [address] [place] [address] Isac Peoples MD Social History Tobacco Use [...] AM CDT Suyapa Mcfarland RN Active * Do you [...] 5:13 AM CDT Suyapa Mcfarland RN Active documented as of this encounter Mental Status * Because of a physical, mental, or emotional condition, do you have serious difficulty concentrating, remembering, or making decisions? Answer Entry Date Author Status No 05/29/2020 5:13 AM CDT Suyapa Mcfarland RN Active documented in this encounter Plan of Treatment Upcoming Encounters Date Type Department Care Team (Late st Contact Info) Description 05/22/2025 11:30 AM CDT Office Visit [facility] [place] [phone] Jaida Kellogg, [address] [address] documented as of this encounter Visit Diagnoses Not on filedocumented in this encounter Care Teams Rn Immunology Relationship Specialty Start Date End Date Jovanny Daigle MD [address] [place] [address] PCP - General INTERNAL MEDICINE 08/05/17 Isac Peoples MD [address] [place] [address] [place] [employer] CARDIOVASCULAR DISEASE 08/05/17 01/24/24 Giana Herrera, NESS, TRAVELING CLERK-C [address] [facility] [address] [place] [address] NURSE PRACTITIONER 09/17/21 01/24/24 Russell Arnold MD [address] [place] [address] INTERVENTIONAL CARDIOLOGY 01/25/24 Jaida Kellogg, ANP- [address] [place] [address] Nurse Practitioner NURSE PRACTITIONER ADULT HEALTH 01/25/24 documented as of this encounter
--- OUTSIDE RECORDS SUMMARY | 2024-12-03 07:01 | XMS_ITS | Patient Health Summary ---
Author Organization [facility] Address [address] [place] [address] Care Team Providers Care Assignment Manager Name Role Phone Unavailable Primary Care Provider Unavailabl e Note from [facility],non-owned Affiliates and Associated Physician Practices is amultiple site organization consisting of ambulatory clinics and hospital sitesin [place], [place], [place] and [place]. This disclosure is being madepursuant to the Care Everywhere program and may not contain all information available regarding this patient. Last updated 18.[facility] Allergies * Hmg-Coa-R Inhibitors(GI Discomfort) Medications * [...] and heating? Not hard at all 07/08/2024 [facility] of Occupat ional Health - Occupational Stress [...] place to sleep or slept in a usp (including now)? No 07/08/2024 Sex and Gender Information Value Date Recorded Sex Assigned at Not on file Gender Identity Not on file Sexual Orientation Not on file Last Filed Vital Signs Vital Sign Reading Time Taken Comments Blood Pressure 125/71 07/11/2024 4:40 AM CDT Pulse 56 07/11/2024 4:40 AM CDT Temperature 36.9 C (98.5 F) 07/11/2024 4:40 AM CDT Respiratory Rate 16 07/11/2024 12:1 5 AM [...] * CBC W AUTO DIFFERENTIAL(Performed 07/08/2024) * SD COLONOSCOPY, DIAGNOSTIC(Performed 07/08/2024) * HGB HCT PANEL(Performed [...] Document CARDIAC SERVICES ORD ERABLES * PT-INR [facility] (07/11/2024 3:17 AM CDT) Only the most recent of4 resultswithin the time period is included. Pathologist [facility] PT 13.2 12.1 - 14.8 Seconds 07/11/2024 4:16 AM CDT [facility] INR 1.0 See Comment 07/11/2024 4:16 AM [...] Gunderson MD LAB - COAGULATION OR DERABLES [facility] [address] [place] [address], [facility] [phone] * (ABNORMAL) CBC W/O DIFFERENTIAL (07/11/2024 3:17 AM CDT) Only the most recent of6 resultswithin the time period is included. [facility] WBC 5.2 4.0 - 10.7 x10E9/L 07/11/2024 [...] Burnette MD LAB - HEMATOLOGY ORD ERABLES [address] [address], [facility] [phone] * (ABNORMAL) RENAL FUNCTION PANEL (07/11/2024 3:17 [...] 3.4 - 5.0 g/dL 07/11/2024 4:12 AM CDT [facility] Calcium 8.8 8.4 - 10.2 mg/dL 07/11/2024 [...] CDT Mayi Andrade MD LAB - CHEMISTRY ORDKyrie SOLANO [address] [address], [place] [phone] * MAGNESIUM BLOOD (07/11/2024 3:17 AM CDT) Only the most recent of3 resultswithin the time period is included. Magnesium 2.1 1.6 - 2.6 mg/dL 07/11/2024 4:12 AM T [facility] Blood BLOOD SPECIMEN / Unknown Lab Venipuncture / Unknown 07/11/2024 3:17 AM CDT 07/11/2024 3:46 AM CDT Poncho Munoz DO LAB - CHEMISTRY ORDE XOIMARA [address] [address], [place] [phone] * PTT [facility] (07/10/2024 12:27 PM CDT) Only the most recent of5 resultswithin the time period is included. Pathologist [facility] APTT 34.4 23.0 - 38.4 Seconds 07/10/2024 1:07 PM [facility] Comment:Suggested therapeuti c range for full dose I.V. unfractionated heparin therapy for venous thromboembolism is 71 to 109 seconds. Blood BLOOD SPECIMEN / Unknown Lab Venipuncture / Unknown 07/10/2024 12:27 PM CDT 07/10/2024 12:33 PM CDT Helen Burnette MD LAB - COAGULATION OR DERABLES [facility] [address] [place] [address], [facility] [phone] * (ABNORMAL) BASIC METABOLIC PANEL (CALCIUM TOTAL) (07/10/2024 4:00 AM CDT) Only the most recent of3 resultswithin the time period is included. Pathologist [facility] BUN 6(L) 7 - 26 mg/dL 07/10/2024 [...] - 295 mOsm/kg 07/10/2024 6:22 AM CDT [facility] eGFR by CKD-EPI 62(L) >=90 mL/min/1.7 3 m2 07/10/2024 6:22 AM CDT [facility] Blood BLOOD SPECIMEN / Unknown Lab Venipuncture / Unknown 07/10/2024 4:00 AM CDT 07/10/2024 5:53 AM CDT Poncho Munoz DO LAB - CHEMISTRY RUDY SOLANO [address] [address], [place] [phone] * PHOSPHORUS BLOOD (07/10/2024 4:00 AM CDT) Only the most recent of2 resultswithin the time period is included. Phosphorus 2.9 2.8 - 5.1 mg/dL 07/10/2024 6:22 AM CDT [facility] Blood BLOOD SPECIMEN / Unknown Lab Venipuncture / Unknown 07/10/2024 4:00 AM CDT 07/10/2024 5:53 AM CDT Poncho Munoz DO LAB - CHEMISTRY RUDY SOLANO [address] [address], [place] [phone] * BLOOD TYPE VERIFICATION (07/09/2024 11:19 AM CDT) ABO Rh O NEG 07/09/2024 12:07 PM CDT [facility] BLOOD BANK LAB Blood Bank BLOOD SPECIMEN / Unknown Venipuncture / Unknown 07/09/2024 11:19 AM CDT 07/09/2024 11:30 AM CDT Jag Gunderson MD LAB - BLOOD BANK ORD ERABLES [facility] BLOOD BANK LAB [address] [place] [address], [place] [phone] * (ABNORMAL) CBC W AUTO DIFFERENTIAL (07/09/2024 11:19 AM [facility]) Only the most recent of3 resultswithin the [...] - 1.6 % 07/09/2024 12:00 PM CDT [facility] Immature Granulocytes % 0.3 0.0 - 1.0 % 07/09/2024 12:00 PM T [facility] Neutrophil Absolute 4.59 1.60 - 7.50 x10E9/L 07/09/2024 12:00 PM T [facility] Lymphocyte Absolute 0.77(L) 1.00 - 4.40 x10E9/L 07/09/2024 12:00 PM T [facility] Monocyte Absolute 0.26 0.15 - 1.00 x10E9/L 07/09/2024 12:00 PM T [facility] Eosinophil Absolute 0.21 0.00 - 0.60 x10E9/L 07/09/2024 12:00 PM T [facility] Basophil Absolute 0.07 0.00 - 0.13 x10E9/L 07/09/2024 12:00 PM T [facility] Blood BLOOD SPECIMEN / Unknown Venipuncture / Unknown 07/09/2024 11:19 AM CDT 07/09/2024 11:40 AM CDT Jag Gunderson MD LAB - HEMATOLOGY ORD ERABLES Performing Organization Address City/State/[facility] Co de Phone Number [address] [address], [facility] [phone] * XR Abdomen Kub (07/09/2024 8:28 AM CDT) Anatomical Region Laterality Modality Abdomen Radiographic Ysabel ging 07/09/2024 11:5 2 AM CDT Impressions 07/10/2024 11:40 PM CDT IMPRESSION: No evidence of pneumoperitoneum. Nonobstructive bowel gas pattern. Report dictated by Brett Jain MD (cath lab radiology technician). I, Je Tapia MD have personally reviewed and interpreted this examination/study. > Interpreting Provider: Je Tapia MD on 07/10/2024 11:40 PM Narrative 07/10/2024 11:40 PM CDT PROCEDURE: XR ABDOMEN KUB, DATE/TIME OF EXAM: 07/09/2024 8:28 AM, LOCATION [facility] INDICATION: K63.1: Intestinal perforation (HCC) ADDITIONAL CLINICAL [...] KUB, DATE/TIME OF EXAM: 07/09/2024 8:28 AM,LOCATION [facility] INDICATION: K63.1: Intestinal perforation (HCC) ADDITIONAL CLINICAL [...] pattern. Report dictated by Brett Jain MD (cath lab radiology technician). I, Je Tapia MD have personally reviewed and interpreted this examination/study. > Interpreting Provider: Je Tapia MD on 07/10/2024 11:40 PM Jag Gunderson MD DIAGNOSTIC IMAGING O RDERABLES * TYPE + SCREEN PANEL (07/09/2024 5:38 AM CDT) Antibody Screen NEG 7:21 AM CDT [facility] BLOOD BANK LAB ABO Rh O NEG 07/09/2024 7:21 AM CDT [facility] BLOOD BANK LAB Blood Bank BLOOD SPECIMEN / Unknown Lab Venipuncture / Unknown 07/09/2024 5:38 AM CDT 07/09/2024 6:15 AM CDT Poncho J Alexander DO LAB - BLOOD BANK ORD ERABLES [facility] BLOOD BANK LAB [address] [place] [address], [facility] [phone] * (ABNORMAL) COMPREHENSIVE METABOLIC PANEL (07/08/2024 10:08 [...] 6.0 - 8.3 g/dL 07/08/2024 10:49 PM [facility] Albumin 3.5 3.4 - 5.0 g/dL 07/08/2024 10:49 PM [facility] Bilirubin Total 0.4 0.2 - 1.2 mg/dL 07/08/2024 10:49 PM [facility] Alkaline Phosphatase 67 40 - 150 U/L 07/08/2024 10:49 PM [facility] ALT 25 5 - 55 U/L 07/08/2024 10:49 PM [facility] AST 24 5 - 34 U/L 07/08/2024 10:49 PM CDT [facility] Anion Gap 6 6 - 16 07/08/2024 10:49 PM T [facility] BUN/Creatinine Ratio 7 7 - 23 07/08/2024 10:49 PM T [facility] Osmolality Calculated 292 275 - 295 mOsm/kg 07/08/2024 10:49 PM T [facility] Albumin/Globulin Ratio 1.6 1.1 - 2.3 07/08/2024 10:49 PM T [facility] eGFR by CKD-EPI 77(L) >=90 mL/min/1.7 3 m2 07/08/2024 10:49 PM T [facility] Blood BLOOD SPECIMEN / Unknown Lab Venipuncture / Unknown 07/08/2024 10:08 PM CDT 07/08/2024 10:22 PM CDT Poncho Munoz DO LAB - CHEMISTRY ARIE XIOMARA Performing Organization Address City/[facility]/ZIP Co de Phone Number [facility] [address] [place] [address], [facility] [phone] * (ABNORMAL) HGB HCT PANEL (07/08/2024 11:22 AM CDT) Only the most recent of7 resultswithin the time period is included. Pathologist [facility] Hemoglobin 9.5(L) 13.3 - 17.5 g/dL 07/08/2024 11:31 AM CDT [facility] Hematocrit 28.2(L) 38.7 - 51.1 % 07/08/2024 11:31 AM CDT [facility] Blood BLOOD SPECIMEN / Unknown Venipuncture / Unknown 07/08/2024 11:22 AM CDT 07/08/2024 11:26 AM CDT Carlotta Sims MD LAB - HEMATOLOGY ORD ERABLES [facility] [address] [place] [address] * ENDOSCOPY, COLON, DIAGNOSTIC (07/08/2024 11:13 AM CDT) Report Endoscopy POC __ _ Patient Name: Aramis Agrawal Procedure Date: 07/08/2024 11:13 AM Date of : 1960 Admit Type: Inpatient Age: 64 Gender: Male Attending MD: Carlotta Sims MD, [id number] __ _ Procedure: Colonoscopy Indications: Gastrointestinal bleeding from polypectomy sites Providers: Carlotta Sims MD (Doctor) Referring MD: Zaire Shah MD (Referring MD) Medicines: Monitored Anesthesia Care Complications: No immediate complications. __ _ Estimated Blood Loss: Estimated blood loss: none. Procedure: Pre-Anesthesia Assessment: - Prior to the procedure, a History and Physical was performed, and patient medications and allergies were reviewed. The patient is competent. The risks and benefits of the procedure and the sedation options and risks were discussed with the patient. All questions were answered and informed consent was obtained. Patient identification and proposed procedure were verified by the physician, the nurse, the anesthesiologist and the heavy equipment service manager in the procedure room. Mental Status Examination: alert and oriented. Airway Examination: normal oropharyngeal airway and neck mobility. Respiratory Examination: clear to auscultation. CV Examination: normal. Prophylactic Antibiotics: The patient does not require prophylactic antibiotics. Prior Anticoagulants: The patient has taken Plavix (clopidogrel), last dose was 4 days prior to procedure. ASA Grade Assessment: III - A patient with severe systemic disease. After reviewing the risks and benefits, the patient was deemed in satisfactory condition to undergo the procedure. The anesthesia plan was to use deep sedation / analgesia. Immediately prior to administration of medications, the patient was re-assessed for adequacy to receive sedatives. The heart rate, respiratory rate, oxygen saturations, blood pressure, adequacy of pulmonary ventilation, and response to care were monitored throughout the procedure. The physical status of the patient was re-assessed after the procedure. After I obtained informed consent, the scope was passed under direct vision. Throughout the procedure, the patient's blood pressure, pulse, and oxygen saturations were monitored continuously. The Colonoscope was introduced through the anus and advanced to the cecum, identified by appendiceal orifice and ileocecal valve. The colonoscopy was performed without difficulty. The patient tolerated the procedure well. The quality of the bowel preparation was adequate. The ileocecal valve, appendiceal orifice, and rectum were photographed. Findings: The perianal and digital rectal examinations were normal. Colon was vigorously washed and examined without blood noted in the entire colon. An area of nonbleeding ulcerated mucosa with 2 adherent clips was noted in the cecum. No visible vessel was noted but scattered red spots noted. Coagulation for hemostasis using bipolar probe was successful. Two areas of ulcerated lumpectomy sites noted in the proximal ascending colon 1 with little deeper base and possible bleeding stigmata. Bipolar cautery applied to these areas. To close a defect after polypectomy, two hemostatic clips were successfully placed. There was no bleeding at the end of the procedure. Hepatic flexure polypectomy site secured with bipolar cautery as another in the transverse colon. A small 3-4 mm hepatic flexure polyp was obliterated with cautery as was a 5 mm flat sigmoid colon polyp. Multiple small and large-mouthed diverticula were found in the left colon. __ _ Impression: - Polypectomy site X 5 in the right colon (X4) and transverse colon (X 1) some with bleeding stigmata, all aggressively managed as detailed in report - Small/diminutive colon polyp X 2 found and obliterated - Diverticulosis in the left colon - No specimens collected Recommendation: - [facility]. - IV heparin trial for mechanical valve - Repeat colonoscopy for surveillance based on outside GI recommendations - Resume previous diet. Procedure Code(s): --- Professional --- 72167, Colonoscopy, flexible; with control of bleeding, any method --- Technical --- 63261, Colonoscopy, flexible; with control of bleeding, any method Diagnosis Code(s): --- Professional --- K63.3, Ulcer of intestine K92.2, Gastrointestinal hemorrhage, unspecified K57.30, Diverticulosis of large intestine without perforation or abscess without bleeding --- Technical --- K63.3, Ulcer of intestine K92.2, Gastrointestinal hemorrhage, unspecified K57.30, Diverticulosis of large intestine without perforation or abscess without bleeding CPT copyright 2020 [employer]. All rights reserved. The codes documented in this report are preliminary and upon supervisor dog license officer review may be revised to meet current compliance requirements. Dr. Carlotta Sims MD _ Carlotta Sims MD 07/08/2024 12:39:51 PM This report has been signed electronically. Number of Addenda: 0 Note Initiated On: 07/08/2024 11:13 AM [facility] 07/08/2024 11:1 3 AM CDT Carlotta Sims MD GI PROCEDURE ORDERAB LES [facility] [place] [address] * PT-INR (07/08/2024 3:30 AM CDT) Only the most recent of2 resultswithin the time period is included. PT 14.2 12.1 - 14.8 sec 07/08/2024 3:52 AM CDT [facility] INR 1.1 0.9 - 1.1 07/08/2024 3:52 AM CDT [facility] Blood BLOOD SPECIMEN / Unknown Venipuncture / Unknown 07/08/2024 3:30 AM CDT 07/08/2024 3:39 AM CDT Narrative [facility] - 07/08/2024 3:52 AM CDT Conventional Warfarin Anticoagulant Therapy: INR Reference Range: 2.0-3.0 Intensive Warfarin Anticoagulant Therapy: INR Reference Range: 2.5-3.5 Kurtis Jaramillo MD LAB - COAGULATION OR DERABLES [facility] [address] [place] [address] * CT ANGIO ABD PELVIS GI BLEED [...] gas is identified. > Interpreting Provider: Willie Wolfe DO on 07/06/2024 4:03 PM Impressions 07/06/2024 3:34 PM CDT IMPRESSION: 1. No evidence of active GI hemorrhage. 2. Aortic atherosclerosis with mild celiac and severe SMA ostial stenosis. 3. Uncomplicated colonic diverticulosis. 4. Hepatic steatosis. 5. Left renal cyst. 6. Prostatomegaly with thick-walled urinary bladder. > Interpreting Provider: Willie Wolfe DO on 07/06/2024 3:34 PM Narrative 07/06/2024 3:34 PM CDT PROCEDURE: CT ANGIO ABD PELVIS GI BLEED [...]
--- OUTSIDE RECORDS SUMMARY | 2024-12-03 07:01 | XMS_ITS | Clinical Summary ---
Author Organization [facility] Address [address] [place] [address] Care Team Providers Care Degreaser Operator Name Role Phone Unavailable Primary Care Provider Unavailabl e Source Comments [facility],non-owned Affiliates and Associated Physician Practices is amultiple site organization consisting of ambulatory clinics and hospital sitesin [place], [place], [place] and [place]. This disclosure is being madepursuant to the Care Everywhere program and may not contain all information available regarding this patient. Last updated 18.[facility] Allergies Active Allergy Reactions Criticality Noted Date [...] and heating? Not hard at all 07/08/2024 [facility] [place] of Occupat ional Health - Occupational Stress [...] place to sleep or slept in a assisted (including now)? No 07/08/2024 Sex and Gender [...] - COLON CA SCREENING 1960 MEDICARE AWV 12 MONTHS 1960 HEPATITIS C SCREENING 04/23/1976 [...] Gender: Male Attending MD: Carlotta Sims MD, [id number] __ _ Procedure: Colonoscopy Indications: Gastrointestinal bleeding [...] physician, the nurse, the anesthesiologist and the taffy puller in the procedure room. Mental Status Examination: [...] previous diet. Procedure Code(s): --- Professional --- 59130, Colonoscopy, flexible; with control of bleeding, any method --- Technical --- 39535, Colonoscopy, flexible; with control of bleeding, any method Diagnosis Code(s): --- Professional --- K63.3, Ulcer of intestine K92.2, Gastrointestinal hemorrhage, unspecified K57.30, Diverticulosis of large intestine without perforation or abscess without bleeding --- Technical --- K63.3, Ulcer of intestine K92.2, Gastrointestinal hemorrhage, unspecified K57.30, Diverticulosis of large intestine without perforation or abscess without bleeding [facility] copyright 2021 [employer]. All rights reserved. The codes documented in this report are preliminary and upon flavorings compounder review may be revised to meet current compliance requirements. Dr. Carlotta Sims MD _ Carlotta Sims MD 07/08/2024 12:39:51 PM This report has been signed electronically. Number of Addenda: 0 Note Initiated On: 07/08/2024 11:13 AM [facility] 07/08/2024 11:1 3 AM CDT Carlotta Sims MD GI PROCEDURE ORDERAB LES [facility] [place] [place] [address] from Last 3 Months or Most Recently Relevant to Health Maintenance Advance Directives * Full Code (Latest Code Status on File) Date Activated Date Inactivated Comments 07/08/2024 9:10 PM 07/11/2024 12:01 PM * Full Code Date Activated Date Inactivated Comments 07/06/2024 4:14 AM 07/08/2024 6:34 PM
--- OUTSIDE RECORDS SUMMARY | 2024-12-03 07:01 | XMS_ITS ---
Author Organization Unknown Address [address] [place] [phone] Phone Care Team Providers Care Brimmer Blocker Name Role Phone JOSE ARCE Attending Unavailable KYLE SANTOS METAL CEILING BUILDER Unavailable ANA GRAVES Primary Unavailable PHILL Barton Surgeon Unavailable Immunization Immunization Date Status Additional Notes Code Code System Tdap 09/06/2016 Completed 115 CVX Results CBC W/ DIFF - Collect Date/T jadon: 07/05/2024 22:04 [facility] ID: [id number] [address] [place] [address], [id number] LOINC: 85136-2 Test Value Unit Reference Range Code Code System Flag WBC 19.0 10^3uL L=4.8 H=10.8 H RBC 3.95 10^6uL L=4.60 H=6.20 L HEMOGLOBIN 12.0 g/dL L=14.0 H=18.0 718-7 LOINC L HEMATOCRIT 34.4 VOL% L=42.0 H=52.0 4544-3 LOINC L MCV 87.1 fL L=80.0 H=94.0 MCH 30.4 pg L=27.0 H=32.0 MCHC 34.9 g/dL L=32.0 H=36.0 PLATELETS 229 10^3uL L=100 H=400 25334-8 LOINC RDW 13.2 % L=11.7 H=15.5 %GRAN 86.9 % L=40.0 H=70.0 44856-4 LOINC H %LYMPH 6.4 % L=20.0 H=45.0 736-9 LOINC L %MONO 5.4 % L=2.0 H=10.0 15100-2 LOINC %EOS 0.5 % L=0.0 H=6.0 713-8 LOINC %BASO 0.5 % L=0.0 H=3.0 706-2 LOINC #NEUT 16.5 10^3uL L=1.9 H=7.6 38219-2 LOINC H #LYMPH 1.2 10^3uL L=0.9 H=4.9 54492-6 LOINC #MONO 1.0 10^3uL L=0.1 H=0.9 16470-3 LOINC H #EOS 0.1 10^3uL L=0.0 H=0.6 712-0 LOINC #BASO 0.09 10^3uL L=0.00 H=0.10 22050-7 LOINC #IM GRANS 0.1 10^3uL L=0.0 H=7.0 11408-6 LOINC %IM GRANS 0.3 % L=0.0 H=5.0 27741-6 LOINC %NRB 0.0 L=0.0 H=0.2 65299-5 LOINC #NRB 0.000 L=0.000 H=0.012 19012-7 LOINC MANUAL DIFF NOT INDICATED RBC MORPH NOT INDICATED BB ABO GROUP - Collect Date/ Time: 07/05/2024 20:00 [facility] ID: [id number] [place], [place], [id number] LOINC: 883-9 Test Value Unit Reference Range Code Code System Flag ABO TYPE O 883-9 LOINC BB RETYPE ABO TYPE - Collect Date/Time: 07/05/2024 20:00 [facility] ID: [id number] [place], [place], [phone] LOINC: 883-9 Test Value Unit Reference Range Code Code System Flag ABO TYPE O 883-9 LOINC PROTIME - Collect Date/Time: 07/05/2024 19:17 [facility] ID: [id number] [address] [place], [place], [id number] LOINC: 68877-3 Test Value Unit Reference Range Code Code System Flag PT 37.2 Sec L=9.7 H=11.7 86251-0 LOINC H INR 3.8 Sec L=0.9 H=1.1 89446-8 LOINC H CBC W/ DIFF - Collect Date/T jadon: 07/05/2024 19:17 [facility] ID: [id number] [address] [place], [place], [phone] LOINC: 32334-0 Test Value Unit Reference Range Code Code System Flag WBC 12.4 10^3uL L=4.8 H=10.8 H RBC 4.35 10^6uL L=4.60 H=6.20 L HEMOGLOBIN 13.2 g/dL L=14.0 H=18.0 718-7 LOINC L HEMATOCRIT 38.8 VOL% L=42.0 H=52.0 4544-3 LOINC L MCV 89.2 fL L=80.0 H=94.0 MCH 30.3 pg L=27.0 H=32.0 MCHC 34.0 g/dL L=32.0 H=36.0 PLATELETS 231 10^3uL L=100 H=400 12677-1 LOINC RDW 13.4 % L=11.7 H=15.5 %GRAN 79.3 % L=40.0 H=70.0 47667-8 LOINC H %LYMPH 11.2 % L=20.0 H=45.0 736-9 LOINC L %MONO 7.1 % L=2.0 H=10.0 99825-9 LOINC %EOS 1.4 % L=0.0 H=6.0 713-8 LOINC %BASO 0.8 % L=0.0 H=3.0 706-2 LOINC #NEUT 9.8 10^3uL L=1.9 H=7.6 22421-0 LOINC H #LYMPH 1.4 10^3uL L=0.9 H=4.9 17846-9 LOINC #MONO 0.9 10^3uL L=0.1 H=0.9 52296-2 LOINC #EOS 0.2 10^3uL L=0.0 H=0.6 712-0 LOINC #BASO 0.10 10^3uL L=0.00 H=0.10 86374-3 LOINC #IM GRANS 0.0 10^3uL L=0.0 H=7.0 54506-0 LOINC %IM GRANS 0.2 % L=0.0 H=5.0 01845-2 LOINC %NRB 0.0 L=0.0 H=0.2 84090-6 LOINC #NRB 0.000 L=0.000 H=0.012 73777-5 LOINC MANUAL DIFF NOT INDICATED RBC MORPH NOT INDICATED PTT - Collect Date/Time: 19:17 [facility] ID: [id number] [place], [place], [phone] LOINC: 00916-3 Test Value Unit Reference Range Code Code System Flag PTT 38.8 Sec L=23.0 H=31.2 H COMPREHENSIVE METABOLIC PANE L - Collect Date/Time: 07/05/2024 19:17 [facility] ID: [id number] [place] [address], [id number] LOINC: 68132-3 Test Value Unit Reference Range Code Code System Flag FASTING UNKNOWN BUN 21 mg/dL L=7 H=20 3094-0 LOINC H CREATININE 1.20 mg/dL L=0.66 H=1.25 2160-0 LOINC GLUCOSE 137 mg/dL L=74 H=106 2345-7 LOINC H SODIUM 137 mmol/L L=132 H=144 2951-2 LOINC POTASSIUM 3.1 mmol/L L=3.5 H=5.1 2823-3 LOINC L CHLORIDE 101 mmol/L L=98 H=107 2075-0 LOINC CO2 27.0 mmol/L L=22.0 H=30.0 2028-9 LOINC ANION GAP 12 L=10 H=20 39286-7 LOINC OSMOLALITY 289 mOs/kG L=280 H=296 44546-8 LOINC BUN/CREAT 17.5 3097-3 LOINC CALCIUM 8.8 mg/dL L=8.3 H=10.5 28739-5 LOINC AST 47 U/L L=15 H=46 1920-8 LOINC H ALT 43 U/L L=9 H=72 1742-6 LOINC ALKALINE PHOS 77 U/L L=38 H=126 6768-6 LOINC TOTAL BILI 0.7 mg/dL L=0.2 H=1.3 1975-2 LOINC ALBUMIN 4.0 G/dL L=3.5 H=5.0 1751-7 LOINC TOTAL PROTEIN 6.4 g/L L=6.3 H=8.2 2885-2 LOINC A/G RATIO 1.7 86797-3 LOINC AGE 64 90013-4 LOINC eGFR NON-AFR 64 ml/min eGFR AFR AMER 77 ml/min LIPASE - Collect Date/Time: 07/05/2024 19:17 [facility] ID: [id number] [address] [place], [place], [id number] LOINC: 3040-3 Test Value Unit Reference Range [...] Willie Toney M.D. AG: ANTONIA Report ID: [id number] Reading Location: [id number] Social History Type Status Start Date End Date Code Code Syst em Smoking History Never smoker (Never Smoked) 147024130 SNOMED CT Sex Male Medications Medication Start Date End Date Route Frequency Dose Code Code System Medication Instructions Home Meds Allopurinol 100MG Oral Tablet 07/05/2024 Unknown ORAL TWICE A DAY 200 MILLIGRAMS 098518 RxNorm TAKE 200 MILLIGRAMS ORAL TWICE A DAY Aspirin 81MG Oral Tablet, Enteric Coated 07/05/2024 Unknown ORAL ONCE A DAY 81 MILLIGRAMS 481115 RxNorm TAKE 81 MILLIGRAMS ORAL ONCE A DAY Felodipine 5MG Oral Tablet, Extended Release 07/05/2024 Unknown ORAL ONCE A DAY 10 MILLIGRAMS 586958 RxNorm TAKE 10 MILLIGRAMS ORAL ONCE A DAY Lisinopril 20MG Oral Tablet 07/05/2024 Unknown ORAL ONCE A DAY 20 MILLIGRAMS 721838 RxNorm TAKE 20 MILLIGRAMS ORAL ONCE A DAY Mag-Ox 400 241.3 MG Oral Tablet 07/05/2024 Unknown ORAL ONCE A DAY 241.3 MG 251681 RxNorm TAKE 241.3 MG ORAL ONCE A DAY Nitroglycerin 0.4MG Sublingual Tablet 07/05/2024 Unknown SUBLING UAL DIRECTED 0.[address] 0.4 MILLIGRAMS SUBLINGUAL DIRECTED Nortriptyline HCl 25MG Oral Capsule 07/05/2024 Unknown ORAL AT BEDTIME 25 MILLIGRAMS 601490 RxNorm TAKE 25 MILLIGRAMS ORAL AT BEDTIME One Daily NA Oral Tablet 07/05/2024 Unknown ORAL ONCE A DAY 20001217 RxNorm TAKE NA ORAL ONCE A DAY Pantoprazole Sodium 40 MG Oral Tablet, Delayed Release 07/05/2024 Unknown ORAL ONCE A DAY 40 MG 587048 RxNorm TAKE 40 MG ORAL ONCE A DAY Q-absorb 100MG Oral Capsule, Liquid Filled 07/05/2024 Unknown ORAL ONCE A DAY 200 MILLIGRAMS RxNorm TAKE 200 MILLIGRAMS ORAL ONCE A DAY Rosuvastatin Calcium 5MG Oral Tablet 07/05/2024 Unknown ORAL ONCE A DAY 5 MILLIGRAMS 053946 RxNorm TAKE 5 MILLIGRAMS ORAL ONCE A DAY Viagra 100MG Oral Tablet 07/05/2024 Unknown ORAL ONCE A DAY 100 MILLIGRAMS 209326 RxNorm TAKE 100 MILLIGRAMS ORAL ONCE A DAY Vitamin D3 25MCG Oral Tablet 07/05/2024 Unknown ORAL ONCE A DAY 25 MCG RxNorm TAKE 25 MCG ORAL ONCE A DAY Warfarin Sodium 1MG Oral Tablet 07/05/2024 Unknown ORAL DIRECTED 1 MILLIGRAMS 344695 RxNorm TAKE 1 MILLIGRAMS ORAL DIRECTED Warfarin Sodium 7.5MG Oral Tablet 07/05/2024 Unknown ORAL ONCE A DAY 7.5 MILLIGRAMS 080860 RxNorm TAKE 7.5 MILLIGRAMS ORAL ONCE A [...] nal endoscopic procedures, endoscope introduce 07/05/2024 completed 00719 CPT Colonoscopy, flexible; with removal of tumor(s), polyp(s), or other lesion 07/05/2024 completed 16803 CPT Transfusion, blood or blood components 07/06/2024 complete d 94722 CPT Allergies and Adverse Reactions Allergy Substance Reaction Severity Start Date Concern Status Co de Code System PRAVASTATIN Active 06611 RxNorm ATORVASTATIN Active 81232 RxNorm No Known Drug Allergies Active 264451281 SNOMED-CT Plan of Treatment Colonoscopy 07/05/2024 Encounters Encounter Diagnosis Start Date Code Code Sys tem Gastrointestinal hemorrhage, unspecified 07/05/2024 SNOMED-CT Personal Care Team Section Performer Name Performer Role Active Date Inactive Da te Imaging Narrative Notes Progress Notes [facility] 07/17/2024 16:12 GI Phill 17 July 2024 [...] notified next am he was transferred to [facility]. On Jun am I called and spoke [...] Hospitalist shortly thereafter and the GI doctor database consultant. I suggested they get a CT angio to document no FA or bleed. This was done and was apparently negative. By report of Dr. Willard, GI to me he got repeat colonoscopy at [facility] with clip and cautery. I just spoke [...] with questions or concerns. Willie Pollock MD [phone] Cc: Dr. Daigle
--- OUTSIDE RECORDS SUMMARY | 2024-12-03 07:01 | XMS_ITS | Encounter Summary ---
Author Organization [facility] Address [address] [place] [address] Care Team Providers Care Pcmh Specialist Name Role Phone Jovanny Daigle MD Primary Care Provider [phone] Isac Peoples MD Unavailable Unavailabl e Giana Herrera APRN, STUDENT LIFE ADVISOR-C Unavailable Russell Arnold MD Unavailable [phone] Jaida Kellogg ANP-BC Unavailable [phone] Encounter Details Date Type Department Care Team (Late st Contact Info) Description 02/25/2023 [facility] [address] [place] [address] Isac Peoples MD Social History Tobacco Use [...] Description 05/22/2025 11:30 AM CDT Office Visit [facility] [place] [phone] Jaida Kellogg, [address] [address] documented as of this encounter Procedures Procedure Name Priority Date/Time Associated Diagnosis Comments PT/INR (OUTSIDE LAB) Routine 02/25/2023 documented in this encounter Results * PT/INR (OUTSIDE LAB) (02/25/2023) PROTIME WHOLE BLOOD 14.7 INR WHOLE BLOOD 1.40 02/25/2023 Jovanny Daigle MD LAB-OUTSIDE/ABSTRACTED Final Re sult documented in this encounter Visit Diagnoses Not on filedocumented in this encounter Care Teams Pcmh Specialist Relationship Specialty Start Date End Date Jovanny Daigle MD [address] [place] [phone] PCP - General INTERNAL MEDICINE 08/05/17 Isac Peoples MD [address] [place] [address] [place] [employer] CARDIOVASCULAR DISEASE 08/05/17 01/24/24 Giana Herrera, WATER SUPERINTENDENT, STUDENT LIFE ADVISOR-C [address] [place] [address] [address] [place] [phone] NURSE PRACTITIONER 09/17/21 01/24/24 Russell Arnold MD [address] [place], [place] [address] INTERVENTIONAL CARDIOLOGY 01/25/24 Jaida Kellogg, ANP- [address] [place] [address] Nurse Practitioner NURSE PRACTITIONER ADULT HEALTH 01/25/24 documented as of this encounter
--- OUTSIDE RECORDS SUMMARY | 2024-12-03 07:01 | XMS_ITS | Referral Summary ---
Author Organization [facility] Address [address] [place] [address] Care Team Providers Care Business Management Consultant Name Role Phone Unavailable Primary Care Provider Unavailabl e Source Comments [facility],non-owned Affiliates and Associated Physician Practices is amultiple site organization consisting of ambulatory clinics and hospital sitesin [place], [place]. This disclosure is being madepursuant to the Care Everywhere program and may not contain all information available regarding this patient. Last updated 18.[facility] Allergies Active Allergy Reactions Criticality Noted Date [...] and heating? Not hard at all 07/08/2024 [facility] [place] of Occupat ional Health - Occupational Stress [...] place to sleep or slept in a snf (including now)? No 07/08/2024 Sex and Gender [...] Gender: Male Attending MD: Carlotta Sims MD, [id number] __ _ Procedure: Colonoscopy Indications: Gastrointestinal bleeding [...] physician, the nurse, the anesthesiologist and the costume seamstress in the procedure room. Mental Status Examination: [...] previous diet. Procedure Code(s): --- Professional --- 87883, Colonoscopy, flexible; with control of bleeding, any method --- Technical --- 61849, Colonoscopy, flexible; with control of bleeding, any method Diagnosis Code(s): --- Professional --- K63.3, Ulcer of intestine K92.2, Gastrointestinal hemorrhage, unspecified K57.30, Diverticulosis of large intestine without perforation or abscess without bleeding --- Technical --- K63.3, Ulcer of intestine K92.2, Gastrointestinal hemorrhage, unspecified K57.30, Diverticulosis of large intestine without perforation or abscess without bleeding CPT copyright 2020 [employer]. All rights reserved. The codes documented in this report are preliminary and upon restaurant line server review may be revised to meet current compliance requirements. Dr. Carlotta Sims MD _ Carlotta Sims MD 07/08/2024 12:39:51 PM This report has been signed electronically. Number of Addenda: 0 Note Initiated On: 07/08/2024 11:13 AM [facility] 07/08/2024 11:1 3 AM CDT Carlotta Sims MD GI PROCEDURE ORDERAB LES [facility] [place] [address] from Last 3 Months or Most Recently Relevant to Health Maintenance Advance Directives * Full Code (Latest Code Status on File) Date Activated Date Inactivated Comments 07/08/2024 9:10 PM 07/11/2024 12:01 PM * Full Code Date Activated Date Inactivated Comments 07/06/2024 4:14 AM 07/08/2024 6:34 PM
--- OUTSIDE RECORDS SUMMARY | 2024-12-03 07:01 | XMS_ITS | Continuity of Care Document ---
Author Organization [facility] Address [address] [place] [address] Phone Care Team Providers Care Bore Mill Operator Name Role Phone Levi MACK, Carlotta Unavailable Unavailable Procedures Procedure Date INITIAL INPT/OBS HOSPITAL CARE LV 2 Jun COLONOSCOPY,CONTROL BLEEDING Advance Directives Directive Yes / No Effective Date File Name No Information Encounters Encounter Description Practice Location Reason(s) For Visit Diagnoses Date Provider Providers Copied on Encounter INITIAL INPT/OBS HOSPITAL CARE LVL 2 [facility], [address], [place], [place], [id number], [place] tel:[phone] [facility] No Information Levi Laguerre. [address], [address], [place], [place], [id number], [place]. tel:[phone] Referring Provider: Zaire Sierra, [address], [place], [address]. tel:[phone] Family History Family Member Type Diagnosis Age At Onset No Information Payers Payer name Insurance type Covered green party ID Authorivonea marybeth(s) MEDICARE [id number] [facility] [id number] Social History Type Description Quantity Date Captured [...]
--- OUTSIDE RECORDS SUMMARY | 2024-12-03 07:02 | XMS_ITS ---
Author Organization Unknown Address [address] [place] [phone] Phone Care Team Providers Care Administrative Office Specialist Name Role Phone KAT Barton Attending Unavailable KYLE SANTOS CRNA Unavailable ANA GRAVES Primary Unavailable Immunization Immunization Date Status Additional Notes Code Code System Tdap 09/06/2016 Completed 115 CVX Social History Type Status Start Date End Date Code Code Syst em Smoking History Never smoker (Never Smoked) 083464157 SNOMED CT Sex Male Vital Signs Vital Sign Value Unit Combs Value Combs Unit Date/Time Recent/Initial? Code Code System Body Mass Index 32.55 kg/m2 07/05/2024 10:26 Most Recent 25459 -5 LOINC Body Mass Index 32.55 kg/m2 05/16/2024 09:18 Initial 33442 -5 LOINC Systolic Blood Pressure 129 mm[Hg] [...] O2 Saturation 99 % 2023 10:26 Initial 34619 -5 LOINC Pulse 61.0 /min 07/05/2024 10:26 Initial 8867- 4 LOINC Respiration 14 /min 07/05/20 10:26 Initial 9279- 1 [facility] Temperature 36.1 Mary Kate 97.0 F 07/05/20 10:26 Initial 8310- 5 [facility] Weight 108.86 kg 240.00 lbs 07/05/2024 10:26 Most Recent 22987 -7 [facility] Weight 108.86 kg 240.00 lbs 05/16/2024 09:18 Initial 55552 -7 [facility] Medications Medication Start Date End Date Route Frequency Dose Code Code System Medication Instructions Home Meds Allopurinol 100MG Oral Tablet 07/05/2024 Unknown ORAL TWICE A DAY 200 MILLIGRAMS 19721025 RxNorm TAKE 200 MILLIGRAMS ORAL TWICE A DAY Aspirin 81MG Oral Tablet, Enteric Coated 07/05/2024 Unknown ORAL ONCE A DAY 81 MILLIGRAMS 596219 RxNorm TAKE 81 MILLIGRAMS ORAL ONCE A DAY Felodipine 5MG Oral Tablet, Extended Release 07/05/2024 Unknown ORAL ONCE A DAY 10 MILLIGRAMS 557531 RxNorm TAKE 10 MILLIGRAMS ORAL ONCE A DAY Lisinopril 20MG Oral Tablet 07/05/2024 Unknown ORAL ONCE A DAY 20 MILLIGRAMS 085029 RxNorm TAKE 20 MILLIGRAMS ORAL ONCE A DAY Mag-Ox 400 241.3 MG Oral Tablet 07/05/2024 Unknown ORAL ONCE A DAY 241.3 MG 694279 RxNorm TAKE 241.3 MG ORAL ONCE A DAY Nitroglycerin 0.4MG Sublingual Tablet 07/05/2024 Unknown SUBLING UAL DIRECTED 0.[address] 0.4 MILLIGRAMS SUBLINGUAL DIRECTED Nortriptyline HCl 25MG Oral Capsule 07/05/2024 Unknown ORAL AT BEDTIME 25 MILLIGRAMS 267896 RxNorm TAKE 25 MILLIGRAMS ORAL AT BEDTIME One Daily NA Oral Tablet 07/05/2024 Unknown ORAL ONCE A DAY 20001217 RxNorm TAKE NA ORAL ONCE A DAY Pantoprazole Sodium 40 MG Oral Tablet, Delayed Release 07/05/2024 Unknown ORAL ONCE A DAY 40 MG 664164 RxNorm TAKE 40 MG ORAL ONCE A DAY Q-absorb 100MG Oral Capsule, Liquid Filled 07/05/2024 Unknown ORAL ONCE A DAY 200 MILLIGRAMS RxNorm TAKE 200 MILLIGRAMS ORAL ONCE A DAY Rosuvastatin Calcium 5MG Oral Tablet 07/05/2024 Unknown ORAL ONCE A DAY 5 MILLIGRAMS 266617 RxNorm TAKE 5 MILLIGRAMS ORAL ONCE A DAY Viagra 100MG Oral Tablet 07/05/2024 Unknown ORAL ONCE A DAY 100 MILLIGRAMS 609425 RxNorm TAKE 100 MILLIGRAMS ORAL ONCE A DAY Vitamin D3 25MCG Oral Tablet 07/05/2024 Unknown ORAL ONCE A DAY 25 MCG RxNorm TAKE 25 MCG ORAL ONCE A DAY Warfarin Sodium 1MG Oral Tablet 07/05/2024 Unknown ORAL DIRECTED 1 MILLIGRAMS 915399 RxNorm TAKE 1 MILLIGRAMS ORAL DIRECTED Warfarin Sodium 7.5MG Oral Tablet 07/05/2024 Unknown ORAL ONCE A DAY 7.5 MILLIGRAMS 857186 RxNorm TAKE 7.5 MILLIGRAMS ORAL ONCE A [...] nal endoscopic procedures, endoscope introduce 07/05/2024 completed 82438 CPT History of decompressive lum bar laminectomy completed 608070594 SNOMEDCT Microdiscectomy completed 841240916 SNOMEDCT Colonoscopy, flexible; with removal of tumor(s), polyp(s), or other lesion 07/05/2024 completed 81823 CPT Cholecystectomy completed 35080534 SNOMEDCT CABG completed 412370222 SNOMEDCT Bicuspid aortic valve completed 71142252 SNO MEDCT Allergies and Adverse Reactions Allergy Substance Reaction Severity Start Date Concern Status Co de Code System PRAVASTATIN Active 12359 RxNorm ATORVASTATIN Active 35197 RxNorm No Known Drug Allergies Active 044196416 SNOMED-CT Plan of Treatment Colonoscopy 07/05/2024 Encounters Encounter Diagnosis Start Date Code Code Sys tem Encounter for screening for malignant neoplasm of colo n 07/05/2024 SNOMED-CT Personal Care Team Section Performer Name Performer Role Active Date Inactive Da te
--- OUTSIDE RECORDS SUMMARY | 2024-12-03 07:02 | XMS_ITS | Clinical Summary ---
Author Organization [facility] Address [address] [place] [address] Care Team Providers Care Hogshead Filler Name Role Phone Jovanny Daigle MD Primary Care Provider [phone] Russell Arnold MD Unavailable [phone] Jaida Kellogg ANP- Unavailable [phone] Allergies Active Allergy Reactions Criticality Noted [...] total) by mouth daily. 90 capsule 3 03/31/2020 Active CALCIUM ACETATE-MAGNESI UM CARB OR Take 1 tablet by mouth daily. Active vitamin D3, cholecalciferol , 10 MCG (400 UNIT) tablet Take 1 tablet (400 Units total) by mouth daily. Active aspirin 81 MG chewable tablet Chew 1 tablet (81 mg total) by mouth daily. 30 tablet 06/04/2020 Active felodipine ER 5 MG 24 hr tablet Take 2 tablets (10 mg total) by mouth daily. 12/09/2021 Active nitroglycerin 0.[address] 1 tablet (0.4 mg total) under the tongue every 5 (five) minutes as needed for Chest Pain. 01/07/2022 Active sildenafil 100 MG tablet Take 0.5 tablets (50 mg total) by mouth as needed for Erectile Dysfunction. 08/17/2021 Active warfarin 7.5 MG tablet Take 9.5 mg by mouth daily. As directed 01/04/2022 Active warfarin 1 MG tablet As directed 12/29/2021 Active Potassium 99 MG tablet Take 1 tablet by mouth daily. Active rosuvastatin (CRESTOR) 5 MG tablet Take 1 tablet (5 mg total) by mouth daily. 01/17/2023 Active losartan-hydroC HLOROthiazide (HYZAAR) 50-12.5 MG tablet Take 1 tablet by mouth daily. Active Active Problems Problem Noted Date Diagnosed Date Greater trochanteric bursitis of right hip 06/14 S/P coronary artery stent placement 03/10/2023 S/P AVR (aortic valve replacement) 07/23/2020 S/P CABG (coronary artery bypass graft) 07/23/20 20 Postoperative atrial fibrillation ([facility]) 07/23/2020 Coronary artery disease 05/29/2020 ED (erectile dysfunction) 10/22/2017 Dyspnea 08/09/2017 Fatigue 08/09/2017 History of cardioembolic cerebrovascular acciden t (CVA) 08/09/2017 Overview (08/09/2017): left occipital infarct HLD (hyperlipidemia) 08/09/2017 HTN (hypertension) 08/09/2017 PVC (premature ventricular contraction) 08/09/20 17 Bicuspid aortic valve GERD (gastroesophageal reflux disease) Encounters Date Type Department Care Team Description 11/26/2024 7:06 AM INSTRUCTOR OF NURSING - 11/26/2024 11:59 PM [facility] Hospital Encounter [facility] [address] [place] [address] Jaida Kellogg, ANP-BC Thiago Puente MD Discharge Disposition: Home or Self Care (Routine Discharge) 11/26/2024 7:05 AM [facility] Hospital Encounter [facility] [address] [place] [address] Jaida Kellogg, ANP-BC Arrived Discharge Disposition: Home or Self Care (Routine Discharge) 11/26/2024 Travel 10/24/2024 1:00 PM INSTRUCTOR OF NURSING Office Visit [facility] [place] [address] [place] [phone] Jaida Kellogg ANP-BC Follow Up (CAD) 10/24/2024 Travel 10/02/2024 Telephone [facility] [address] [place] [address] Russell Arnold MD Appointment Request from Last 3 Months [...] Comments Blood Pressure 140/80 10/24/2024 3:04 PM INSTRUCTOR OF NURSING Pulse 65 10/24/2024 3:04 PM INSTRUCTOR OF NURSING Temperature 36.3 C (97.3 F) 02/21/2023 12:46 PM CDT Respiratory Rate 12 10/24/2024 3:04 PM INSTRUCTOR OF NURSING Oxygen Saturation 99% 10/24/2024 3:04 PM INSTRUCTOR OF NURSING Inhaled Oxygen Concentration - - Weight 107.5 kg (237 lb) 10/24/2024 3:04 PM INSTRUCTOR OF NURSING Height 182.9 cm (6') 10/24/2024 3:04 PM INSTRUCTOR OF NURSING Body Mass Index 32.14 10/24/2024 3:04 PM INSTRUCTOR OF NURSING Plan of Treatment Upcoming Encounters Date Type Department Care Team (Late st Contact Info) Description 05/22/2025 11:30 AM CDT Office Visit [facility] [address] [place] [phone] Jaida Kellogg ANP-BC [facility] [place], [place] [phone] Health Maintenance Due Date Last Done Comments [...] this topic Medical Devices Implanted Type Area Salvage Engineer Device Identifier Shelf Expiration Date Model / Serial / Lot Cv Xience 4.0mm X 18mm Dav Mid Rca-02/21/2023 Implanted:02/21 by Jarrett Tirado MD (Quantity not on file) Stent Coronary RCA [employer] 03/08/2024 [id number] Valve Aortic On-X - [id number] Implanted:Qty: 1 on 05/29/2020 by Valentin Motta MD at [facility] N/A: Heart [employer] 02/13/2026 ONXAE- / [id number] / Description:Inventory notifi ed- Candace Procedures Procedure Name Priority Date/Time Associated Diagnosis Comments NM EXER NUC STRESS TEST 1 DAY W TRACING Routine 11/26/2024 9:50 AM INSTRUCTOR OF NURSING Shortness of breath STRESS TEST ONLY, EXERCISE Routine 11/26/2024 7:53 AM INSTRUCTOR OF NURSING Shortness of breath COLONOSCOPY GENERIC (SCAN ORDER) Routine 07/05/2024 12:00 AM CDT LIPID PANEL Routine 05/26/2020 11:06 AM CDT from Last 3 Months or Most Recently Relevant to Health Maintenance Results * NM EXER NUC STRESS TEST 1DAY (11/26/2024 9:50 AM INSTRUCTOR OF NURSING) Anatomical Region Laterality Modality Cardiac Nuclear Medicine 11/26/2024 7:58 AM INSTRUCTOR OF NURSING Narrative 11/27/2024 6:19 AM INSTRUCTOR OF NURSING MYOCARDIAL PERFUSION SCAN Pat.Name: Aramis Agrawal Pat.ID: [id number] .Date: 11/26/2024 Refer.MD: Delbert, [facility] Exam Time: 7:58:00 AM Study Type:[facility] Height: 72 in Weight: 237 lb BSA: 2.29 m2 Age: 7 1960,64Y Sex: M Sonogrphr: RHODA Luis Pat. Stat.:Outpatient Reason for Study:Shortness of breath Procedures: Study performed at [place], [place] and interpreted by [facility]. Exercise Stress, Stress Gated SPECT, Rest SPECT Risk Factors:CAD, Hypertension ++++++++++++++++++++++++++++++++++++ SUMMARY: ++++++++++++++++++++++++++++++++++++ Negative electrocardiographic portion of exercise stress test. Normal Perfusion Study with diaphragmatic attenuation . Left ventricular EF is 63 %. ++++++++++++++++++++++++++++++++++++ FINDINGS: ++++++++++++++++++++++++++++++++++++ Stress Findings: Negative electrocardiographic portion of exercise stress test. Gan treadmill score of 8, consistent with low risk of cardiac events in the next 12 months. Impr: Normal Perfusion Study with diaphragmatic attenuation . Transient Ischemic Dilatation: The TID is 0.79. LV Perfusion Results: There is a mild basal inferior, basal inferolateral perfusion defect during stress and rest. Gated SPECT Results: Left ventricular EF is 63 %. There is post stress normal wall motion in all pascal. Study Quality/Artifacts: The study quality is good. ++++++++++++++++++++++++++++++++++++ STRESS: ++++++++++++++++++++++++++++++++++++ Baseline Vital Signs: HR: 69 bmp Treadmill Test Protocol: Bruno Duration: 07:53 min:sec Max. Workload (METS): 10.3 Gan Score: 8 Group: low risk Stress Test Results: Max HR: 137 bmp Target HR: 154 bmp % Target: 89 % Max BP: 170/70 Max RPP: [address]: 0 mm Symptoms and Complications: Reason for Stopping Test: Protocol completed, Fatigue Stress Induced Symptoms: None ECG Findings: No ischemic S-T changes occurred with stress <Electronic Signature> 11/27/2024 06:19 AM Yelitza Gtz M.D. Procedure Note Gold Gtz MD - 11/27/2024 MYOCARDIAL PERFUSION SCAN Pat.Name: Aramis Agrawal Valentina.ID: [id number] .Date: 11/26/2024 Refer.MD: Delbert, [facility] Exam Time: 7:58:00 AM Study Type:[facility] Height: 72 in Weight: 237 lb BSA: 2.29 m2 Age: 7 1960,64Y Sex: M Sonogrphr: RHODA Luis Pat. Stat.:Outpatient Reason for Study:Shortness of breath Procedures: Study performed at [facility], [place], [place] and interpreted by [facility]. Exercise Stress, Stress Gated SPECT, Rest SPECT Risk Factors:CAD, Hypertension ++++++++++++++++++++++++++++++++++++ SUMMARY: ++++++++++++++++++++++++++++++++++++ Negative electrocardiographic portion of exercise stress test. Normal Perfusion Study with diaphragmatic attenuation . Left ventricular EF is 63 %. ++++++++++++++++++++++++++++++++++++ FINDINGS: ++++++++++++++++++++++++++++++++++++ Stress Findings: Negative electrocardiographic portion of exercise stress test. Gan treadmill score of 8, consistent with low risk of cardiac events in the next 12 months. Impr: Normal Perfusion Study with diaphragmatic attenuation . Transient Ischemic Dilatation: The TID is 0.79. LV Perfusion Results: There is a mild basal inferior, basal inferolateral perfusion defect during stress and rest. Gated SPECT Results: Left ventricular EF is 63 %. There is post stress normal wall motion in all pascal. Study Quality/Artifacts: The study quality is good. ++++++++++++++++++++++++++++++++++++ STRESS: ++++++++++++++++++++++++++++++++++++ Baseline Vital Signs: HR: 69 bmp Treadmill Test Protocol: Bruno Duration: 07:53 min:sec Max. Workload (METS): 10.3 Gan Score: 8 Group: low risk Stress Test Results: Max HR: 137 bmp Target HR: 154 bmp % Target: 89 % Max BP: 170/70 Max RPP: 12050 Max ST: 0 mm Symptoms and Complications: Reason for Stopping Test: Protocol completed, Fatigue Stress Induced Symptoms: None ECG Findings: No ischemic S-T changes occurred with stress <Electronic Signature> 11/27/2024 06:19 AM Yelitza Gtz M.D. us Jaida MIXON- NUC MED Final Res ult * COLONOSCOPY (07/05/2024 12:00 AM CDT) 07/05/2024 us Doc Pccl Scanned SCANNING Final Result [facility] ONBASE * (ABNORMAL) LIPID PANEL (05/26/2020 11:06 AM CDT) CHOLESTEROL 147 MG/DL 05/26/2020 12:15 PM CDT [facility] Comment:DESIRABLE: <200 TRIGLYCERIDES 232 MG/DL 05/26/2020 12:15 PM CDT [facility] Comment:200-499 HIGH HDL 37(L) >39 MG/DL 05/26/2020 12:15 PM CDT [facility] LDL (CALCULATED) 64 MG/DL 05/26/20 12:15 PM CDT [facility] Comment:<100 OPTIMAL VLDL CALCULATION 46 MG/DL 05/26/20 12:15 PM CDT [facility] Comment:REFERENCE RANGE NOT ESTABLISHED CHOL/HDL RATIO 4.0 05/26/2020 12:15 PM CDT [facility] Comment:REFERENCE RANGE NOT ESTABLISHED LDL/HDL 1.7 05/26/2020 12:15 PM CDT [facility] Comment:REFERENCE RANGE NOT ESTABLISHED NON HDL CHOLESTEROL 110 MG/DL 05/26/2020 12:15 PM CDT [facility] Comment:REFERENCE RANGE NOT ESTABLISHED 05/26/2020 11:0 6 AM CDT Valentin Motta MD LABORATORY Final Resul t [facility] [address] [place] [address], [phone] from Last 3 Months or Most Recently Relevant to Health Maintenance Insurance [facility] MEDICARE [facility] Advance Directives * Full Code (Latest Code Status on File) Date Activated Date Inactivated Comments 02/21/2023 3:49 PM 02/21/2023 8:06 PM * Full Code Date Activated Date Inactivated Comments 05/29/2020 12:07 PM 06/03/2020 6:52 PM * Full Code Date Activated Date Inactivated Comments 05/07/2020 10:33 AM 05/07/2020 3:49 PM Care Teams Hogshead Filler Relationship Specialty Start Date End Date Jovanny Daigle MD [address] [place] [address] PCP - General INTERNAL MEDICINE 08/05/17 Russell Arnold MD [address] [place] [address] [phone] INTERVENTIONAL CARDIOLOGY 01/25/24 Jaida Kellogg, [facility]- [address] [place] [address] Nurse Practitioner NURSE PRACTITIONER ADULT HEALTH 01/25/24
--- OUTSIDE RECORDS SUMMARY | 2024-12-03 07:02 | XMS_ITS | Encounter Summary ---
Author Organization [facility] Address [address] [place] [address] Care Team Providers Care Power Operator Name Role Phone Jovanny Daigle MD Primary Care Provider [phone] Isac Peoples MD Unavailable Unavailabl e Giana Herrera APRN, PRESSURE TESTER-C Unavailable Russell Arnold MD Unavailable [phone] Jaida Kellogg ANP-BC Unavailable [phone] Encounter Details Date Type Department Care Team (Late st Contact Info) Description 05/21/[address] [facility] [address] [place] [address] Valentin Motta MD [address] [place] [address] Social History Tobacco Use Types [...] Description 05/22/2025 11:30 AM CDT Office Visit [facility] [place] [address] Jaida Kellogg ANP-BC [address] [place] [address] documented as of this encounter Visit Diagnoses Not on filedocumented in this encounter Additional Health Concerns Infection Onset Date Last Indicated Resolved Time COVID-19 Rule Out 05/26/2020 05/26/2020 05/27/2020 10:48 PM CDT documented as of this encounter Care Teams Power Operator Relationship Specialty Start Date End Date Jovanny Daigle MD [address] [place] [phone] PCP - General INTERNAL MEDICINE 08/05/17 Isac Peoples MD [address] [place] [address] [place] [employer] Equipment Repairer CARDIOVASCULAR DISEASE 08/05/17 01/24/24 Giana Herrera APRN, PRESSURE TESTER-C [address] [place] [phone] NURSE PRACTITIONER 09/17/21 01/24/24 Russell Arnold MD [address] [place] [id number] INTERVENTIONAL CARDIOLOGY 01/25/24 Jaida Kellogg ANP-BC [address] [place] [address] Nurse Practitioner NURSE PRACTITIONER ADULT HEALTH 01/25/24 documented as of this encounter
[2024-12-03 07:11] LABS: Hemoglobin 14.5 g/dL (12.4-15.3); Mean Corpuscular HGB Conc 31.5 g/dL (32-36); Mean Corpuscular Hemoglobin 26.2 pg (27.0-31.0); Platelet Count Result 226 K/mm3 (150-420); Red Blood Count 5.54 M/mm3 (4.70-6.10); Red Cell Distribution Width 19.5 % (11.6-14.4); White Blood Count 7.1 K/mm3 (4.8-10.8)
[2024-12-03 08:07] LABS: Alanine Aminotransferase 64 U/L (16-63); Albumin Level 4.3 g/dL (3.4-5.0); Alkaline Phosphatase 132 U/L (46-116); Anion Gap 12 mmol/L (4-12); Aspartate Amino Transferase 36 U/L (15-37); Bilirubin,Total 0.6 mg/dL (0.00-1.00); Blood Urea Nitrogen 10 mg/dL (7-18); Calcium 9.1 mg/dL (8.5-10.1); Carbon Dioxide 26 mmol/L (21-32); Chloride 105 mmol/L (98-108); Cholesterol 150 mg/dL (0-200); Estimated Glomerular Filt Rate 52; Glucose 136 mg/dL (70-99); HDL Direct 45 mg/dL (40-60); LDL Cholesterol Calculated 65 mg/dL (<130); Osmolality Calculated 297 mOsm/kg (285-295); Potassium 4.2 mmol/L (3.5-5.1); Sodium 143 mmol/L (136-145); Triglycerides 198 mg/dL (0-150)
== END 2024-12-03 06:58 | disposition home or self-care (01) ==
LOC: CHSLAB 07:00
PROVIDERS: PCP Internal Medicine; Visit Provider Internal Medicine
DX: I10 Essential (primary) hypertension (principal); E78.5 Hyperlipidemia, unspecified; E87.6 Hypokalemia
CPT/HCPCS: 36415; 80053; 80061; 83735; 85027

== ENCOUNTER 2025-01-15 10:15 | Outpatient (CLI) | payer MEDICARE, OTHER, SELFPAY ==
--- NOTE | ~2025-01-15 | XR_ITS ---
Thoracic spine: Clinical Indication: Back pain AP and lateral views were performed. No fracture is seen. There is normal alignment of the vertebrae. The intervertebral disc spaces appe ar normal. There is DISH of the mid to lower thoracic spine. Paravertebral soft tissues appear normal . Impression: DISH, as above. Reviewed, dictated and finalized at location . Impression: DISH, as above.
--- NOTE | ~2025-01-15 | XR_ITS ---
EXAMINATION: XR ribs RT 2V w CXR 2V Exam Date/Time: 01/15/2025 10:22 CDT HISTORY: R posterior thoracic and paraspinal pain,X1MO,WORSENING Comparison: 04/24/2024, 04/20/2018. RESULT: Lines, tubes, and devices: Median sternotomy wires, fracture of the inferior wire which remains in s table position. Mediastinal surgical clips. Cholecystectomy clips. Cardiac valve replacement. Lungs and pleura: Clear. Cardiothymic silhouette: Stable. Other: No acute osseous or upper abdominal finding. IMPRESSION: No acute cardiopulmonary process. Reviewed, dictated and finalized at location K.
--- OUTSIDE RECORDS SUMMARY | 2025-01-15 11:15 | XMS_ITS | Clinical Summary ---
Author Organization [facility] Address [address] [place] [address] Care Team Providers Care Senior C Software Engineer Name Role Phone Unavailable Primary Care Provider Unavailabl e Source Comments [facility],non-owned Affiliates and Associated Physician Practices is amultiple site organization consisting of ambulatory clinics and hospital sitesin [place], [place], [place] and [place]. This disclosure is being madepursuant to the Care Everywhere program and may not contain all information available regarding this patient. Last updated 18.[facility] Allergies Active Allergy Reactions Criticality Noted Date [...] and heating? Not hard at all 07/08/2024 [facility] [place] [facility] - Occupational Stress [...] 1-dose 75+ series) 2033 COLON MONITORING 07/08/2034 07/08/2024 COLONOSCOPY - COLON CA SCREENING 07/08/2034 07/08/20 24 Colorectal Cancer Screening 07/08/2034 HEPATITIS B VACCINE Aged Out No longe r eligible based on patient's age to complete this topic HIB VACCINE Aged Out No longer eligi ble based on patient's age to complete this topic HPV VACCINE Aged Out No longer eligi ble based on patient's age to complete this topic MENINGOCOCCAL (Group B) VACC INE SHARED DECISION-MAKING Aged Out No longer eligibl e based on patient's age to complete this topic MENINGOCOCCAL GROUPS A/C/Y/W VACCINE Aged Out No longer eligible b ased on patient's age to complete this topic Advance Directives * Full Code (Latest Code Status on File) Date Activated Date Inactivated Comments 07/08/2024 9:10 PM 07/11/2024 12:01 PM * Full Code Date Activated Date Inactivated Comments 07/06/2024 4:14 AM 07/08/2024 6:34 PM
--- OUTSIDE RECORDS SUMMARY | 2025-01-15 11:15 | XMS_ITS ---
Author Organization Unknown Address [address] [place] [phone] Phone Care Team Providers Care Computer Forensics Investigator Name Role Phone KAT Barton Attending Unavailable KYLE SANTOS CRNA Unavailable ANA GRAVES Primary Unavailable Immunization Immunization Date Status Additional Notes Code Code System Tdap 09/06/2016 Completed 115 CVX Social History Type Status Start Date End Date Code Code Syst em Smoking History Never smoker (Never Smoked) 936668344 SNOMED CT Sex Male Vital Signs Vital Sign Value Unit [place] Value [place] Unit Date/Time Recent/Initial? Code Code System Body Mass Index 32.55 kg/m2 07/05/2024 10:26 Most Recent 16238 -5 LOINC Body Mass Index 32.55 kg/m2 05/16/2024 09:18 Initial 64338 -5 LOINC Systolic Blood Pressure 129 mm[Hg] [...] O2 Saturation 99 % 2023 10:26 Initial 02730 -5 LOINC Pulse 61.0 /min 07/05/2024 10:26 Initial 8867- 4 LOINC Respiration 14 /min 07/05/20 10:26 Initial 9279- 1 [facility] Temperature 36.1 Mary Kate 97.0 F 07/05/20 10:26 Initial 8310- 5 [facility] Weight 108.86 kg 240.00 lbs 07/05/2024 10:26 Most Recent 55848 -7 [facility] Weight 108.86 kg 240.00 lbs 05/16/2024 09:18 Initial 06669 -7 [facility] Medications Medication Start Date End Date Route Frequency Dose Code Code System Medication Instructions Home Meds Allopurinol 100MG Oral Tablet 07/05/2024 Unknown ORAL TWICE A DAY 200 MILLIGRAMS 19721025 RxNorm TAKE 200 MILLIGRAMS ORAL TWICE A DAY Aspirin 81MG Oral Tablet, Enteric Coated 07/05/2024 Unknown ORAL ONCE A DAY 81 MILLIGRAMS 505709 RxNorm TAKE 81 MILLIGRAMS ORAL ONCE A DAY Felodipine 5MG Oral Tablet, Extended Release 07/05/2024 Unknown ORAL ONCE A DAY 10 MILLIGRAMS 693924 RxNorm TAKE 10 MILLIGRAMS ORAL ONCE A DAY Lisinopril 20MG Oral Tablet 07/05/2024 Unknown ORAL ONCE A DAY 20 MILLIGRAMS 922708 RxNorm TAKE 20 MILLIGRAMS ORAL ONCE A DAY Mag-Ox 400 241.3 MG Oral Tablet 07/05/2024 Unknown ORAL ONCE A DAY 241.3 MG 103049 RxNorm TAKE 241.3 MG ORAL ONCE A DAY Nitroglycerin 0.4MG Sublingual Tablet 07/05/2024 Unknown SUBLING UAL DIRECTED 0.[address] 0[address]4 MILLIGRAMS SUBLINGUAL DIRECTED Nortriptyline HCl 25MG Oral Capsule 07/05/2024 Unknown ORAL AT BEDTIME 25 MILLIGRAMS 203320 RxNorm TAKE 25 MILLIGRAMS ORAL AT BEDTIME One Daily NA Oral Tablet 07/05/2024 Unknown ORAL ONCE A DAY 20001217 RxNorm TAKE NA ORAL ONCE A DAY Pantoprazole Sodium 40 MG Oral Tablet, Delayed Release 07/05/2024 Unknown ORAL ONCE A DAY 40 MG 597562 RxNorm TAKE 40 MG ORAL ONCE A DAY Q-absorb 100MG Oral Capsule, Liquid Filled 07/05/2024 Unknown ORAL ONCE A DAY 200 MILLIGRAMS RxNorm TAKE 200 MILLIGRAMS ORAL ONCE A DAY Rosuvastatin Calcium 5MG Oral Tablet 07/05/2024 Unknown ORAL ONCE A DAY 5 MILLIGRAMS 009166 RxNorm TAKE 5 MILLIGRAMS ORAL ONCE A DAY Viagra 100MG Oral Tablet 07/05/2024 Unknown ORAL ONCE A DAY 100 MILLIGRAMS 458889 RxNorm TAKE 100 MILLIGRAMS ORAL ONCE A DAY Vitamin D3 25MCG Oral Tablet 07/05/2024 Unknown ORAL ONCE A DAY 25 MCG RxNorm TAKE 25 MCG ORAL ONCE A DAY Warfarin Sodium 1MG Oral Tablet 07/05/2024 Unknown ORAL DIRECTED 1 MILLIGRAMS 963524 RxNorm TAKE 1 MILLIGRAMS ORAL DIRECTED Warfarin Sodium 7.5MG Oral Tablet 07/05/2024 Unknown ORAL ONCE A DAY 7.5 MILLIGRAMS 928154 RxNorm TAKE 7.5 MILLIGRAMS ORAL ONCE A [...] nal endoscopic procedures, endoscope introduce 07/05/2024 completed 65953 CPT History of decompressive lum bar laminectomy completed [id number] SNOMEDCT Microdiscectomy completed 340420625 SNOMEDCT Colonoscopy, flexible; with removal of tumor(s), polyp(s), or other lesion 07/05/2024 completed 92553 CPT Cholecystectomy completed 67311738 SNOMEDCT CABG completed 613281630 SNOMEDCT Bicuspid aortic valve completed 41225269 SNO MEDCT Allergies and Adverse Reactions Allergy Substance Reaction Severity Start Date Concern Status Co de Code System PRAVASTATIN Active 70076 RxNorm ATORVASTATIN Active 41645 RxNorm No Known Drug Allergies Active 316342573 SNOMED-CT Plan of Treatment Colonoscopy 07/05/2024 Encounters Encounter Diagnosis Start Date Code Code Sys tem Encounter for screening for malignant neoplasm of colo n 07/05/2024 SNOMED-CT Personal Care Team Section Performer Name Performer Role Active Date Inactive Da te
--- OUTSIDE RECORDS SUMMARY | 2025-01-15 11:15 | XMS_ITS | Encounter Summary ---
Author Organization [facility] Address Formerly [facility] [place] [address] Care Team Providers Care Package Delivery Room Service Runner Name Role Phone Jovanny Daigle MD Primary Care Provider [phone] Isac Peoples MD Unavailable Unavailabl e Giana Herrera APRN, DISTRIBUTION AGENT-C Unavailable Russell Arnold MD Unavailable [phone] Jaida Kellogg ANP-BC Unavailable [phone] Encounter Details Date Type Department Care Team (Late st Contact Info) Description 02/25/2023 Abstract [facility] [address] [place] [address] Isac Peoples MD Social History Tobacco Use [...] Description 05/22/2025 11:30 AM CDT Office Visit [facility] [place] [address] Jaida Kellogg, [place] [address] documented as of this encounter Procedures Procedure Name Priority Date/Time Associated Diagnosis Comments PT/INR (OUTSIDE LAB) Routine 02/25/2023 documented in this encounter Results * PT/INR (OUTSIDE LAB) (02/25/2023) PROTIME WHOLE BLOOD 14.7 INR WHOLE BLOOD 1.40 02/25/2023 Jovanny Daigle MD LAB-OUTSIDE/ABSTRACTED Final Re sult documented in this encounter Visit Diagnoses Not on filedocumented in this encounter Care Teams Package Delivery Room Service Runner Relationship Specialty Start Date End Date Jovanny Daigle MD [address] [place] [address] PCP - General INTERNAL MEDICINE 08/05/17 Isac Peoples MD [address] [place] [address] [place] [facility] Services Director CARDIOVASCULAR DISEASE 08/05/17 01/24/24 Giana Herrera, INSOLE BOTTOM FILLER, DISTRIBUTION AGENT-C [address] [phone] NURSE PRACTITIONER 09/17/21 01/24/24 Russell Arnold MD [address] [place] [phone] INTERVENTIONAL CARDIOLOGY 01/25/24 Jaida Kellogg, ANP- [address] [place] [address] Nurse Practitioner NURSE PRACTITIONER ADULT HEALTH 01/25/24 documented as of this encounter
--- OUTSIDE RECORDS SUMMARY | 2025-01-15 11:15 | XMS_ITS ---
Author Organization Unknown Address [address] [place] [phone] Phone Care Team Providers Care Appliance Technician Name Role Phone JOSE ARCE Attending Unavailable KYLE SANTOS CRNA Unavailable ANA GRAVES Primary Unavailable PHILL Barton Surgeon Unavailable Immunization Immunization Date Status Additional Notes Code Code System Tdap 09/06/2016 Completed 115 CVX Results CBC W/ DIFF - Collect Date/T jadon: 07/05/2024 22:04 [facility] ID: [id number] [address] [place] [address], [id number] LOINC: 17923-1 Test Value Unit Reference Range Code Code System Flag WBC 19.0 10^3uL L=4.8 H=10.8 H RBC 3.95 10^6uL L=4.60 H=6.20 L HEMOGLOBIN 12.0 g/dL L=14.0 H=18.0 718-7 LOINC L HEMATOCRIT 34.4 VOL% L=42.0 H=52.0 4544-3 LOINC L MCV 87.1 fL L=80.0 H=94.0 MCH 30.4 pg L=27.0 H=32.0 MCHC 34.9 g/dL L=32.0 H=36.0 PLATELETS 229 10^3uL L=100 H=400 54392-7 LOINC RDW 13.2 % L=11.7 H=15.5 %GRAN 86.9 % L=40.0 H=70.0 58544-8 LOINC H %LYMPH 6.4 % L=20.0 H=45.0 736-9 LOINC L %MONO 5.4 % L=2.0 H=10.0 38954-1 LOINC %EOS 0.5 % L=0.0 H=6.0 713-8 LOINC %BASO 0.5 % L=0.0 H=3.0 706-2 LOINC #NEUT 16.5 10^3uL L=1.9 H=7.6 03946-1 LOINC H #LYMPH 1.2 10^3uL L=0.9 H=4.9 46455-7 LOINC #MONO 1.0 10^3uL L=0.1 H=0.9 62034-5 LOINC H #EOS 0.1 10^3uL L=0.0 H=0.6 712-0 LOINC #BASO 0.09 10^3uL L=0.00 H=0.10 97517-9 LOINC #IM GRANS 0.1 10^3uL L=0.0 H=7.0 62077-2 LOINC %IM GRANS 0.3 % L=0.0 H=5.0 14191-7 LOINC %NRB 0.0 L=0.0 H=0.2 97796-6 LOINC #NRB 0.000 L=0.000 H=0.012 04978-7 LOINC MANUAL DIFF NOT INDICATED RBC MORPH NOT INDICATED BB ABO GROUP - Collect Date/ Time: 07/05/2024 20:00 [facility] ID: [id number] [address] [place], [place], [id number] LOINC: 883-9 Test Value Unit Reference Range Code Code System Flag ABO TYPE O 883-9 LOINC BB RETYPE ABO TYPE - Collect Date/Time: 07/05/2024 20:00 [facility] ID: [id number] [address] [place], [place], [id number] LOINC: 883-9 Test Value Unit Reference Range Code Code System Flag ABO TYPE O 883-9 LOINC PROTIME - Collect Date/Time: 07/05/2024 19:17 [facility] ID: [id number] [address] [place], [place], [id number] LOINC: 14429-2 Test Value Unit Reference Range Code Code System Flag PT 37.2 Sec L=9.7 H=11.7 81177-7 LOINC H INR 3.8 Sec L=0.9 H=1.1 05426-3 LOINC H CBC W/ DIFF - Collect Date/T jadon: 07/05/2024 19:17 [facility] ID: [id number] [address] [place], [place], [id number] LOINC: 04167-2 Test Value Unit Reference Range Code Code System Flag WBC 12.4 10^3uL L=4.8 H=10.8 H RBC 4.35 10^6uL L=4.60 H=6.20 L HEMOGLOBIN 13.2 g/dL L=14.0 H=18.0 718-7 LOINC L HEMATOCRIT 38.8 VOL% L=42.0 H=52.0 4544-3 LOINC L MCV 89.2 fL L=80.0 H=94.0 MCH 30.3 pg L=27.0 H=32.0 MCHC 34.0 g/dL L=32.0 H=36.0 PLATELETS 231 10^3uL L=100 H=400 54278-4 LOINC RDW 13.4 % L=11.7 H=15.5 %GRAN 79.3 % L=40.0 H=70.0 69127-3 LOINC H %LYMPH 11.2 % L=20.0 H=45.0 736-9 LOINC L %MONO 7.1 % L=2.0 H=10.0 00399-7 LOINC %EOS 1.4 % L=0.0 H=6.0 713-8 LOINC %BASO 0.8 % L=0.0 H=3.0 706-2 LOINC #NEUT 9.8 10^3uL L=1.9 H=7.6 35305-5 LOINC H #LYMPH 1.4 10^3uL L=0.9 H=4.9 09176-2 LOINC #MONO 0.9 10^3uL L=0.1 H=0.9 76341-4 LOINC #EOS 0.2 10^3uL L=0.0 H=0.6 712-0 LOINC #BASO 0.10 10^3uL L=0.00 H=0.10 61629-5 LOINC #IM GRANS 0.0 10^3uL L=0.0 H=7.0 85965-2 LOINC %IM GRANS 0.2 % L=0.0 H=5.0 18911-6 LOINC %NRB 0.0 L=0.0 H=0.2 55300-9 LOINC #NRB 0.000 L=0.000 H=0.012 31775-8 LOINC MANUAL DIFF NOT INDICATED RBC MORPH NOT INDICATED PTT - Collect Date/Time: 19:17 [facility] ID: [id number] [place], [place], [id number] LOINC: 87981-8 Test Value Unit Reference Range Code Code System Flag PTT 38.8 Sec L=23.0 H=31.2 H COMPREHENSIVE METABOLIC PANE L - Collect Date/Time: 07/05/2024 19:17 [facility] ID: [id number] [place] [address], [id number] LOINC: 55650-7 Test Value Unit Reference Range Code Code [...] 2027-9 LOINC ANION GAP 12 L=10 H=20 54943-2 LOINC OSMOLALITY 289 mOs/kG L=280 H=296 00190-6 LOINC BUN/CREAT 17.5 3097-3 LOINC CALCIUM 8.8 mg/dL L=8.3 H=10.5 76552-8 LOINC AST 47 U/L L=15 H=46 1920-8 LOINC H ALT 43 U/L L=9 H=72 1742-6 LOINC ALKALINE PHOS 77 U/L L=38 H=126 6768-6 LOINC TOTAL BILI 0.7 mg/dL L=0.2 H=1.3 1975-2 LOINC ALBUMIN 4.0 G/dL L=3.5 H=5.0 1751-7 LOINC TOTAL PROTEIN 6.4 g/L L=6.3 H=8.2 2885-2 LOINC A/G RATIO 1.7 43091-5 LOINC AGE 64 98526-7 LOINC eGFR NON-AFR 64 ml/min eGFR AFR AMER 77 ml/min LIPASE - Collect Date/Time: 07/05/2024 19:17 [facility] ID: [id number] [address] [place], [place], [id number] LOINC: 3040-3 Test Value Unit Reference Range [...] Willie Toney M.D. AG: ANTONIA Report ID: [id number] Reading Location: [place] [address] Social History Type Status Start Date End Date Code Code Syst em Smoking History Never smoker (Never Smoked) 528250297 SNOMED CT Sex Male Medications Medication Start Date End Date Route Frequency Dose Code Code System Medication Instructions Home Meds Allopurinol 100MG Oral Tablet 07/05/2024 Unknown ORAL TWICE A DAY 200 MILLIGRAMS 435175 RxNorm TAKE 200 MILLIGRAMS ORAL TWICE A DAY Aspirin 81MG Oral Tablet, Enteric Coated 07/05/2024 Unknown ORAL ONCE A DAY 81 MILLIGRAMS 637560 RxNorm TAKE 81 MILLIGRAMS ORAL ONCE A DAY Felodipine 5MG Oral Tablet, Extended Release 07/05/2024 Unknown ORAL ONCE A DAY 10 MILLIGRAMS 054790 RxNorm TAKE 10 MILLIGRAMS ORAL ONCE A DAY Lisinopril 20MG Oral Tablet 07/05/2024 Unknown ORAL ONCE A DAY 20 MILLIGRAMS 730314 RxNorm TAKE 20 MILLIGRAMS ORAL ONCE A DAY Mag-Ox 400 241.3 MG Oral Tablet 07/05/2024 Unknown ORAL ONCE A DAY 241.3 MG 304000 RxNorm TAKE 241.3 MG ORAL ONCE A DAY Nitroglycerin 0.4MG Sublingual Tablet 07/05/2024 Unknown SUBLING UAL DIRECTED 0.[address] 0.4 MILLIGRAMS SUBLINGUAL DIRECTED Nortriptyline HCl 25MG Oral Capsule 07/05/2024 Unknown ORAL AT BEDTIME 25 MILLIGRAMS 016821 RxNorm TAKE 25 MILLIGRAMS ORAL AT BEDTIME One Daily NA Oral Tablet 07/05/2024 Unknown ORAL ONCE A DAY 20001217 RxNorm TAKE NA ORAL ONCE A DAY Pantoprazole Sodium 40 MG Oral Tablet, Delayed Release 07/05/2024 Unknown ORAL ONCE A DAY 40 MG 386506 RxNorm TAKE 40 MG ORAL ONCE A DAY Q-absorb 100MG Oral Capsule, Liquid Filled 07/05/2024 Unknown ORAL ONCE A DAY 200 MILLIGRAMS RxNorm TAKE 200 MILLIGRAMS ORAL ONCE A DAY Rosuvastatin Calcium 5MG Oral Tablet 07/05/2024 Unknown ORAL ONCE A DAY 5 MILLIGRAMS 134277 RxNorm TAKE 5 MILLIGRAMS ORAL ONCE A DAY Viagra 100MG Oral Tablet 07/05/2024 Unknown ORAL ONCE A DAY 100 MILLIGRAMS 323180 RxNorm TAKE 100 MILLIGRAMS ORAL ONCE A DAY Vitamin D3 25MCG Oral Tablet 07/05/2024 Unknown ORAL ONCE A DAY 25 MCG RxNorm TAKE 25 MCG ORAL ONCE A DAY Warfarin Sodium 1MG Oral Tablet 07/05/2024 Unknown ORAL DIRECTED 1 MILLIGRAMS 201553 RxNorm TAKE 1 MILLIGRAMS ORAL DIRECTED Warfarin Sodium 7.5MG Oral Tablet 07/05/2024 Unknown ORAL ONCE A DAY 7.5 MILLIGRAMS 988547 RxNorm TAKE 7.5 MILLIGRAMS ORAL ONCE A [...] nal endoscopic procedures, endoscope introduce 07/05/2024 completed 65528 CPT Colonoscopy, flexible; with removal of tumor(s), polyp(s), or other lesion 07/05/2024 completed 28156 CPT Transfusion, blood or blood components 07/06/2024 complete d 22884 CPT Allergies and Adverse Reactions Allergy Substance Reaction Severity Start Date Concern Status Co de Code System PRAVASTATIN Active 17062 RxNorm ATORVASTATIN Active 05134 RxNorm No Known Drug Allergies Active 332677370 SNOMED-CT Plan of Treatment Colonoscopy 07/05/2024 Encounters Encounter Diagnosis Start Date Code Code Sys tem Gastrointestinal hemorrhage, unspecified 07/05/2024 SNOMED-CT Personal Care Team Section Performer Name Performer Role Active Date Inactive Da te Imaging Narrative Notes Progress Notes [facility] 07/17/2024 16:12 GI Phill 17 July 2024 1600 I was notified by Dr. Shah on pm 20 Sept that patient presented to the ER with BRBPR. INR about 3.[address] with free air. By his report exam was benign and WBC essentially normal. I suggested giving patient one dose of Zosyn and transfer to tertiary hospital for further eval and treatment. I was notified next am he was transferred to [facility]. On Jun am I called and spoke [...] Hospitalist shortly thereafter and the GI doctor consumer electronic retail specialist. I suggested they get a CT angio to document no FA or bleed. This was done and was apparently negative. By report of Dr. Willard GI to me he got repeat colonoscopy at [facility] with clip and cautery. I just spoke [...] further recs regarding anticoagulants per him and U. Call with questions or concerns. Willie Pollock MD [phone] Cc: Dr. Daigle
--- OUTSIDE RECORDS SUMMARY | 2025-01-15 11:15 | XMS_ITS | Clinical Summary ---
Author Organization [facility] Address [address] [place] [address] Care Team Providers Care Business Intelligence Engineer Name Role Phone Jovanny Daigle MD Primary Care Provider [phone] Russell Arnold MD Unavailable [phone] Jaida Kellogg [facility]- Unavailable [phone] Allergies Active Allergy Reactions Criticality Noted Date [...] S/P CABG (coronary artery bypass graft) 07/23/20 Postoperative atrial fibrillation ([facility] HHS/H CC) 07/23/2020 Coronary artery disease 05/29/2020 ED (erectile dysfunction) 10/22/2017 Dyspnea 08/09/2017 Fatigue 08/09/2017 History of cardioembolic cerebrovascular acciden t (CVA) 08/09/2017 Overview (08/09/2017): left occipital infarct HLD (hyperlipidemia) 08/09/2017 HTN (hypertension) 08/09/2017 PVC (premature ventricular contraction) 08/09/20 17 Bicuspid aortic valve GERD (gastroesophageal reflux disease) Encounters Date Type Department Care Team Description 11/26/2024 7:06 AM CIVIL DESIGN SPECIALIST - 11/26/2024 11:59 PM CIVIL DESIGN SPECIALIST Hospital Encounter [facility] [address] [place] [address] Jaida Kellogg, ANP- Thiago Puente MD Discharge Disposition: Home or Self Care (Routine Discharge) 11/26/2024 7:05 AM CIVIL DESIGN SPECIALIST Hospital Encounter [facility] [address] [place] [address] Jaida Kellogg, ANP- Discharge Disposition: Home or Self Care (Routine Discharge) 11/26/2024 Travel 10/24/2024 1:00 PM CIVIL DESIGN SPECIALIST Office Visit [facility] [address] [place] [address] Jaida Kellogg ANP- Follow Up (CAD) 10/24/2024 Travel from Last 3 Months Family History Medical [...] Comments Blood Pressure 140/80 10/24/2024 3:04 PM CIVIL DESIGN SPECIALIST Pulse 65 10/24/2024 3:04 PM CIVIL DESIGN SPECIALIST Temperature 36.3 C (97.3 F) 02/21/2023 12:46 PM CDT Respiratory Rate 12 10/24/2024 3:04 PM CIVIL DESIGN SPECIALIST Oxygen Saturation 99% 10/24/2024 3:04 PM CIVIL DESIGN SPECIALIST Inhaled Oxygen Concentration - - Weight 107.5 kg (237 lb) 10/24/2024 3:04 PM CIVIL DESIGN SPECIALIST Height 182.9 cm (6') 10/24/2024 3:04 PM CIVIL DESIGN SPECIALIST Body Mass Index 32.14 10/24/2024 3:04 PM CIVIL DESIGN SPECIALIST Plan of Treatment Upcoming Encounters Date Type Department Care Team (Late st Contact Info) Description 05/22/2025 11:30 AM CDT Office Visit [facility] [place] [address] [place] [address] Health Maintenance Due Date Last Done Comments [...] this topic Medical Devices Implanted Type Area Information Security Systems Instructor Device Identifier Shelf Expiration Date Model / Serial / Lot Cv Xience 4.0mm X 18mm Dav Mid Rca-02/21/2023 Implanted:02/21 by Jarrett Tirado MD (Quantity not on file) Stent Coronary RCA [employer] 03/08/2024 [id number] Valve Aortic On-X - [id number] Implanted:Qty: 1 on 05/29/2020 by Valentin Motta MD at [facility] N/A: Heart [employer] 02/13/2026 ONXAE- / [id number] / Description:Inventory notifi ed- Candace Procedures Procedure Name Priority Date/Time Associated Diagnosis Comments NM EXER NUC STRESS TEST 1 DAY W TRACING Routine 11/26/2024 9:50 AM CIVIL DESIGN SPECIALIST Shortness of breath STRESS TEST ONLY, EXERCISE Routine 11/26/2024 7:53 AM CIVIL DESIGN SPECIALIST Shortness of breath COLONOSCOPY GENERIC (SCAN ORDER) Routine 07/05/2024 12:00 AM CDT LIPID PANEL Routine 05/26/2020 11:06 AM CDT from Last 3 Months or Most Recently Relevant to Health Maintenance Results * NM EXER NUC STRESS TEST 1DAY (11/26/2024 9:50 AM CIVIL DESIGN SPECIALIST) Anatomical Region Laterality Modality Cardiac Nuclear Medicine 11/26/2024 7:58 AM CIVIL DESIGN SPECIALIST Narrative 11/27/2024 6:19 AM CIVIL DESIGN SPECIALIST MYOCARDIAL PERFUSION SCAN Pat.Name: Aramis Agrawal Pat.ID: [id number] .Date: 11/26/2024 Refer.MD: Delbert, [facility] Exam Time: 7:58:00 AM Study Type:[place] OUTREACH Height: 72 in Weight: 237 lb BSA: 2.29 m2 Age: 7 1960,64Y Sex: M Sonogrphr: RHODA Luis Pat. Stat.:Outpatient Reason for Study:Shortness of breath Procedures: Study performed at [place], [place] and interpreted by [facility]. Exercise Stress, Stress Gated SPECT, [...] 89 % Max BP: 170/70 Max RPP: [address]17 Max ST: 0 mm Symptoms and Complications: Reason for Stopping Test: Protocol completed, Fatigue Stress Induced Symptoms: None ECG Findings: No ischemic S-T changes occurred with stress <Electronic Signature> 11/27/2024 06:19 AM Yelitza Gtz M.D. Procedure Note Gold Gtz MD - 11/27/2024 MYOCARDIAL PERFUSION SCAN Pat.Name: Aramis Agrawal Pat.ID: [id number] .Date: 11/26/2024 Refer.MD: Delbert, [facility] Exam Time: 7:58:00 AM Study Type:[facility] Height: 72 in Weight: 237 lb BSA: 2.29 m2 Age: 7 1960,64Y Sex: M Sonogrphr: RHODA Luis Pat. Stat.:Outpatient Reason for Study:Shortness of breath Procedures: Study performed at [facility], [place], [place] and interpreted by [facility]. Exercise Stress, Stress Gated SPECT, [...] 89 % Max BP: 170/70 Max RPP: 44604 Max ST: 0 mm Symptoms and Complications: Reason for Stopping Test: Protocol completed, Fatigue Stress Induced Symptoms: None ECG Findings: No ischemic S-T changes occurred with stress <Electronic Signature> 11/27/2024 06:19 AM Yelitza Gtz M.D. Jaida Kellogg [facility] NUC MED Final Res ult * COLONOSCOPY (07/05/2024 12:00 AM CDT) 07/05/2024 us Doc Pccl Scanned SCANNING Final Result [facility] ONBASE * (ABNORMAL) LIPID PANEL (05/26/2020 11:06 AM CDT) CHOLESTEROL 147 MG/DL 05/26/2020 12:15 PM CDT [facility] Comment:DESIRABLE: <200 TRIGLYCERIDES 232 MG/DL 05/26/2020 12:15 PM CDT [facility] Comment:200-499 HIGH HDL 37(L) >39 MG/DL 05/26/2020 12:15 PM CDT [facility] LDL (CALCULATED) 64 MG/DL 05/26/20 12:15 PM CDT [facility] Comment:<100 OPTIMAL VLDL CALCULATION 46 MG/DL 05/26/20 12:15 PM CDT [facility] Comment:REFERENCE RANGE NOT ESTABLISHED CHOL/HDL RATIO 4.0 05/26/2020 12:15 PM CDT [facility] Comment:REFERENCE RANGE NOT ESTABLISHED LDL/HDL 1.7 05/26/2020 12:15 PM CDT [facility] Comment:REFERENCE RANGE NOT ESTABLISHED NON HDL CHOLESTEROL 110 MG/DL 05/26/2020 12:15 PM CDT [facility] Comment:REFERENCE RANGE NOT ESTABLISHED 05/26/2020 11:0 6 AM CDT Valentin Motta MD LABORATORY Final Resul t [facility] [address] [place] [address], [id number] from Last 3 Months or Most Recently Relevant to Health Maintenance Insurance MEDICARE [facility] Advance Directives * Full Code (Latest Code Status on File) Date Activated Date Inactivated Comments 02/21/2023 3:49 PM 02/21/2023 8:06 PM * Full Code Date Activated Date Inactivated Comments 05/29/2020 12:07 PM 06/03/2020 6:52 PM * Full Code Date Activated Date Inactivated Comments 05/07/2020 10:33 AM 05/07/2020 3:49 PM Care Teams Business Intelligence Engineer Relationship Specialty Start Date End Date Jovanny Daigle MD [address] [place] [address] PCP - General INTERNAL MEDICINE 08/05/17 Russell Arnold MD [address] [place] [address] INTERVENTIONAL CARDIOLOGY 01/25/24 Jaida Kellogg, ANP- [facility] [place] [address] Nurse Practitioner NURSE PRACTITIONER ADULT HEALTH 01/25/24
--- OUTSIDE RECORDS SUMMARY | 2025-01-15 11:15 | XMS_ITS | Encounter Summary ---
Author Organization [facility] Address [facility] [place] [address] Care Team Providers Care Surgical Dental Assistant Name Role Phone Jovanny Daigle MD Primary Care Provider [phone] Isac Peoples MD Unavailable Unavailabl e Giana Herrera APRN, HUMAN RESOURCES DESIGNATE-C Unavailable Russell Arnold MD Unavailable [phone] Jaida Kellogg ANP-BC Unavailable [phone] Encounter Details Date Type Department Care Team (Late Contact Info) Description 05/21/[address] [facility] [address] [place] [address] Valentin Motta MD [address] [place] [address] Social History Tobacco Use Types [...] Encounters Date Type Department Care Team (Late Contact Info) Description 05/22/2025 11:30 AM CDT Office Visit [facility] [place] [address] Jaida Kellogg ANP-SADAF [address] [place] [address] documented as of this encounter Visit Diagnoses Not on filedocumented in this encounter Additional Health Concerns Infection Onset Date Last Indicated Resolved Time COVID-19 Rule Out 05/26/2020 05/26/2020 05/27/2020 10:48 PM CDT documented as of this encounter Care Teams Surgical Dental Assistant Relationship Specialty Start Date End Date Jovanny Daigle MD [address] [place] [address] PCP - General INTERNAL MEDICINE 08/05/17 Isac Peoples MD [address] [place] [address] [place] Sales Manager [employer]anged [employer] CARDIOVASCULAR DISEASE 08/05/17 01/24/24 Giana Herrera APRN, HUMAN RESOURCES DESIGNATE-C [address] [place] [address] [place] [address] NURSE PRACTITIONER 09/17/21 01/24/24 Russell Arnold MD [address] [place] [address] [place] [address] INTERVENTIONAL CARDIOLOGY 01/25/24 Jaida Kellogg ANP-BC [address] [place] [address] Nurse Practitioner NURSE PRACTITIONER ADULT HEALTH 01/25/24 documented as of this encounter
--- OUTSIDE RECORDS SUMMARY | 2025-01-15 11:15 | XMS_ITS | Encounter Summary ---
Author Organization [facility] Address [address] [place] [address] Care Team Providers Care Electrical Engineering Intern Name Role Phone Jovanny Daigle MD Primary Care Provider [phone] Isac Peoples MD Unavailable Unavailabl e Giana Herrera APRN, DUMP TRUCK DRIVER-C Unavailable Russell Arnold MD Unavailable [phone] Jaida Kellogg ANP-BC Unavailable + Encounter Details Date Type Department Care Team (Late st Contact Info) Description 02/15/2023 Hospital Orders Only [facility] Flight Reservations Manager Pre/Post [address] [place] [address] Isac Peoples MD Social History [...] Description 05/22/2025 11:30 AM CDT Office Visit [facility] [phone] Jaida Kellogg, [address] [address] documented as of this encounter Visit Diagnoses Not on filedocumented in this encounter Care Teams Electrical Engineering Intern Relationship Specialty Start Date End Date Jovanny Daigle MD [address] [place] [address] PCP - General INTERNAL MEDICINE 08/05/17 Isac Peoples MD [address] [place] [address] [place] Animal Shelter Worker CARDIOVASCULAR DISEASE 08/05/17 01/24/24 Giana Herrera, EARLY CHILDHOOD, DUMP TRUCK DRIVER-C [address] [facility] [address] [place] [phone] NURSE PRACTITIONER 09/17/21 01/24/24 Russell Arnold MD [address] [place] [address] [address] INTERVENTIONAL CARDIOLOGY 01/25/24 Jaida Kellogg [facility]- [address] [place] [address] Nurse Practitioner NURSE PRACTITIONER ADULT HEALTH 01/25/24 documented as of this encounter
--- OUTSIDE RECORDS SUMMARY | 2025-01-15 11:15 | XMS_ITS | Continuity of Care Document ---
Author Organization [facility] Address [address] [place] [address] Phone Care Team Providers Care Manager Building Name Role Phone Levi MACK, Carlotta Unavailable Unavailable Procedures Procedure Date INITIAL INPT/OBS HOSPITAL CARE LV 2 Jun COLONOSCOPY,CONTROL BLEEDING Advance Directives Directive Yes / No Effective Date File Name No Information Encounters Encounter Description Practice Location Reason(s) For Visit Diagnoses Date Provider Providers Copied on Encounter INITIAL INPT/OBS HOSPITAL CARE LVL 2 [facility], [address], [place], [place], [id number], [place] tel:[phone] [facility] No Information Levi Laguerre. [address] [facility], [address], [place], [place], [address], [place]. tel:[phone] Referring Provider: Zaire Sierra, [address] [facility] [address], [place], [address]. tel:[phone] Family History Family Member Type Diagnosis Age At Onset No Information Payers Payer name Insurance type Covered green party ID Authorivonea marybeth(s) MEDICARE [id number] [facility] [id number] Social History Type Description Quantity Date Captured [...]
== END 2025-01-15 10:16 | disposition home or self-care (01) ==
PROVIDERS: PCP Internal Medicine; Visit Provider Internal Medicine
DX: M54.40 Lumbago with sciatica, unspecified side (principal); M54.6 Pain in thoracic spine; M48.14 Ankylosing hyperostosis [Forestier], thoracic region
CPT/HCPCS: 71046; 71100; 72072

== ENCOUNTER 2025-04-11 07:02 | Outpatient (CLI) | payer MEDICARE, OTHER, SELFPAY ==
[2025-04-11 07:15] LABS: Add Urine Microscopic? YES; Appearance Urine Clear (Clear); Basophils Absolute Auto 0.11 K/mm3 (0.00-0.10); Basophils Percent Auto 1.8 % (0.0-1.0); Bilirubin Urine Negative (Negative); Blood Urine Negative (Negative); Color Urine Yellow (Yellow); Eosinophils Percent Auto 3.2 % (1.0-6.0); Glucose Urine UA Negative (Negative); Hematocrit 44.6 % (37.0-46.0); Hemoglobin 14.7 g/dL (12.4-15.3); Immature Granulocyte Absolute 0.01 K/mm3 (0.00-0.00); Immature Granulocyte Percent A 0.2 % (0.0-0.0); Ketones Urine Negative (Negative); Leukocyte Esterase Ur Negative (Negative); Lymphocytes Absolute Auto 1.19 K/mm3 (1.10-4.50); Lymphocytes Percent Auto 19.2 % (18.0-42.0); Mean Corpuscular Hemoglobin 28.9 pg (27.0-31.0); Mean Corpuscular Volume 87.6 fL (78.0-102.0); Mean Platelet Volume 9.1 fl (8.7-11.0); Monocytes Absolute Auto 0.49 K/mm3 (0.10-0.90); Monocytes Percent Auto 7.9 % (2.0-11.0); Neutrophils Percent Auto 67.7 % (50.0-70.0); Nitrate Urine Negative (Negative); Platelet Count Result 206 K/mm3 (150-420); Protein Urine Trace (Negative); Red Blood Count 5.09 M/mm3 (4.70-6.10); Red Cell Distribution Width 14.4 % (11.6-14.4); White Blood Count 6.2 K/mm3 (4.8-10.8)
[2025-04-11 07:24] LABS: Bacteria Urine Rare /hpf; RBC Urine None seen /hpf (0-2); Squamous Epithelial Cell Urine Occasional /hpf (Few); WBC Urine None seen /hpf (0-3)
[2025-04-11 08:03] LABS: Alanine Aminotransferase 29 U/L (6-50); Albumin Level 4.3 g/dL (3.5-5.1); Alkaline Phosphatase 118 U/L (38-126); Anion Gap 6 mmol/L (4-12); Aspartate Amino Transferase 40 U/L (17-59); Bilirubin,Total 0.6 mg/dL (0.2-1.3); Blood Urea Nitrogen 19 mg/dL (9-20); Calcium 9.2 mg/dL (8.4-10.2); Carbon Dioxide 27 mmol/L (22-30); Chloride 107 mmol/L (98-107); Cholesterol 130 mg/dL (0-200); Estimated Glomerular Filt Rate 60; Glucose 122 mg/dL (65-110); HDL Direct 37 mg/dL; LDL Cholesterol Calculated 35 mg/dL (<130); Magnesium 2.2 mg/dL (1.6-2.3); Osmolality Calculated 293 mOsm/kg (285-295); Potassium 3.7 mmol/L (3.4-5.0); Sodium 140 mmol/L (137-145); Total Protein 6.6 g/dL (6.3-8.2); Triglycerides 290 mg/dL (<150)
[2025-04-11 08:33] LABS: Prostate Specific Antigen 0.8 ng/mL (< OR = 4.0)
== END 2025-04-11 07:03 | disposition home or self-care (01) ==
LOC: CHSLAB 07:04
PROVIDERS: PCP Internal Medicine; Visit Provider Internal Medicine
DX: I10 Essential (primary) hypertension (principal); E78.5 Hyperlipidemia, unspecified; Z12.5 Encounter for screening for malignant neoplasm of prostate
CPT/HCPCS: 36415; 80053; 80061; 81001; 83735; 84153; 84443; 85025; G0103